=== PATIENT | male | born 1970 | race Two or more races ===

== ENCOUNTER 2022-11-08 19:13 | Emergency (ER) | payer SELFPAY ==
[~2022-11-08] VITALS: Ht 177.8 cm; Wt 109.1 kg
[2022-11-08 19:20] VITALS: BP 124/66
[2022-11-08 19:42] LABS: Basophils # (auto) 0 10 ^3/uL (0-0.2); Eosinophils # (auto) 0.1 10 ^3/uL (0-0.8); Eosinophils % (auto) 2.4 % (0.0-7.0); Neutrophils # (auto) 1.7 10 ^3/uL (1.6-8.6); Neutrophils % (auto) 41.3 % (37.0-80.0); Red Cell Distribution Width 14.4 % (11.8-14.3)
[2022-11-08 19:44] LABS: Basophils % (auto) 0.4 % (0.0-2.0); Hematocrit 41.4 % (41.0-53.0); Hemoglobin 14.8 g/dL (13.5-17.5); Lymphocytes # (auto) 1.9 10 ^3/uL (0.4-5.4); Lymphocytes % (auto) 46.8 % (10.0-50.0); Mean Corpuscular Hemoglobin 34.9 pg (28.0-32.0); Mean Corpuscular Hgb Conc. 35.8 g/dL (32.0-36.0); Mean Corpuscular Volume 97.6 fL (80.0-100.0); Monocytes # (auto) 0.4 10 ^3/uL (0-1.3); Monocytes % (auto) 9.1 % (0.0-12.0); Nucleated Red Blood Cells % 0.2 %; Red Blood Cells 4.24 10^6/uL (4.5-5.90); White Blood Cell 4.1 10^3/uL (4.4-10.8)
[2022-11-08 20:07] LABS: Albumin 3.5 g/dL (3.4-5.0); Calcium 8.4 mg/dL (8.5-10.1); Potassium 3.7 mmol/L (3.5-5.1)
[2022-11-08 20:13] LABS: Bilirubin, Total 0.9 mg/dL (0.2-1.0); Total Protein 7.2 g/dL (6.4-8.2)
[2022-11-08 20:37] LABS: BUN/Creatinine Ratio 16.9 (10.0-20.0)
== END 2022-11-08 23:55 | disposition left against medical advice (07) ==
LOC: ER 19:13
DX: R07.89 Other chest pain (principal); F10.129 Alcohol abuse with intoxication, unspecified; R73.9 Hyperglycemia, unspecified; D72.819 Decreased white blood cell count, unspecified; F17.210 Nicotine dependence, cigarettes, uncomplicated; Z53.29 Procedure and treatment not carried out because of patient's decision for other reasons
CPT/HCPCS: 36415; 71045; 80053; 80320; 84484; 85025; 93005

== ENCOUNTER 2024-11-22 12:11 | Inpatient (IN) | payer MEDICAID, OTHER ==
[~2024-11-22] VITALS: Ht 177.8 cm; Wt 104.7 kg
[2024-11-22] MEDS: SODIUM CHLORIDE 0.9% 1,000 ML IV ONE (12:30)
--- NOTE | 2024-11-22 13:00 | ED.PDOC ---
Musculoskeletal HPI Comments 54 year old male presents to the ED with chief complaint of right foot redness. Patient reports that he has had an ulcer to his right heel for about a week with it appearing like a blister before it popped and the area became red and painful. Patient relays that he decided to boil some water and epsom salt together yesterday, waited for it to cool down, then dunk his foot to soak in the mixture, however, this morning his entire foot became blistered, painful, red, hot to touch, and spread up his leg to the stevens. Patient denies any numbness, weakness, fever, chills, discharge, or bleeding. Chief Complaint: Lower Extremity Time Seen by MD: 12:55 Reviewed Notes: Nurses Notes, Medications, Allergies Allergies: Coded Allergies: NO KNOWN ALLERGIES (Unverified , 11/22/24) Information Source: Patient Mode of Arrival: Ambulatory Location: Right Extremity Location: Foot, Tibia Timing: Weeks Prehospital treatment: None Severity: Moderate Able to Move Extremity: Yes Bear Weight: Fully Pain: Moderate Mechanism: Spontaneous Circumstances: Spontaneous, Preceding Wound Onset of Symptoms: Spontaneous Symptoms: Pain, Erythema, Warmth DVT Risk Factors: NONE Past Medical History PAST MEDICAL HISTORY: OK Surgical History: Denies all surgeries Family History Family History: Unknown Social History Smoker: Cigarettes Alcohol: Heavy Drugs: Denies Drug Use Lives In: Home Constitutional: denies: chills, diaphoresis, fatigue, fever, malaise, sweats, weakness, others EENTM: denies: blurred vision, double vision, ear bleeding, ear discharge, ear drainage, ear pain, ear ringing, eye pain, eye redness, hearing loss, mouth pain, mouth swelling, nasal discharge, nose bleeding, nose congestion, nose pain, photophobia, tearing, throat pain, throat swelling, voice changes, others Respiratory: denies: cough, hemoptysis, orthopnea, SOB at rest, shortness of breath, SOB with excertion, stridor, wheezing, others Cardiovascular: denies: chest pain, dizzy spells, diaphoresis, Dyspnea on exertion, edema, irregular heart beat, left arm pain, lightheadedness, palpitations, PND, syncope, others Gastrointestinal: denies: abdomen distended, abdominal pain, blood streaked bowels, constipated, diarrhea, dysphagia, difficulty swallowing, hematemesis, melena, nausea, poor appetite, poor fluid intake, rectal bleeding, rectal pain, vomiting, others Genitourinary: denies: burning, dysuria, flank pain, frequency, hematuria, incontinence, penile discharge, penile sore, pain, testicle pain, testicle swelling, urgency, others Neurological: denies: dizziness, fainting, headache, left sided numbness, left sided weakness, numbness, paresthesia, pre-existing deficit, right sided numbness, right sided weakness, seizure, speech problems, tingling, tremors, weakness, others Musculoskeletal: denies: back pain, gout, joint pain, joint swelling, muscle pain, muscle stiffness, neck pain, others Integumetry: reports: change in color, others (Blistering, redness to right foot/stevens); denies: bruises, change in hair/nails, dryness, laceration, lesions, lumps, rash, wounds Allergic/Immunocompromised: denies: Difficulty Healing, Frequent Infections, Hives, Itching, others Hematologic/Lymphatic: denies: anemia, blood clots, easy bleeding, easy bruising, swollen glands, others Endocrine: denies: excessive hunger, excessive sweating, excessive thirst, excessive urination, flushing, intolerance to cold, intolerance to heat, unexplained weight gain, unexplained weight loss, others Psychiatric: denies: anxiety, bipolar disorder, depression, hopeless, panic disorder, schizophrenia, sleepless, suicidal, others All Other Systems: Reviewed and Negative Physical Exam General Appearance: No Apparent Distress, Normal HEENT: Normal ENT Inspection, Pharynx Normal, TMs Normal Neck: Full Range of Motion, Non-Tender, Normal, Normal Inspection Respiratory: Chest Non-Tender, Lungs Clear, No Accessory Muscle Use, No Respiratory Distress, Normal Breath Sounds Cardiovascular: No Edema, No JVD, No Murmur, No Gallop, Normal Peripheral Pulses, Regular Rate/Rhythm Breast Exam: Deferred Gastrointestinal: No Organomegaly, Non Tender, No Pulsatile Mass, Normal Bowel Sounds, Soft Genitalia: Deferred Pelvic: Deferred Rectal: Deferred Extremities: No calf tenderness, Normal capillary refill, Normal range of motion, Other (Blistering, erythema, and warmth to touch to the right lower leg from mid stevens to foot.) Musculoskeletal : Apperance: Normal Neurologic: Alert, autism teacher II-XII nml as Tested, No Motor Deficits, Normal Affect, Normal Mood, No Sensory Deficits Cerebellar Function: Normal Reflexes: Normal Skin: Dry, Normal Color, Warm Lymphatic: No Adenopathy Was a procedure done? Was a procedure done?: No Differential Diagnosis EXT Differential Diagnosis: Cellulitis X-Ray, Labs, Meds, VS Vital Signs Date Time Temp Pulse Resp B/P (MAP) Pulse Ox O2 Delivery O2 Flow Rate FiO2 11/22/24 12:37 98.1 74 19 168/74 (105) 98 98.1 11/22/24 12:32 98.9 81 16 177/96 (123) 97 98.9 Lab Test 11/22/24 13:50 11/22/24 13:11 Range/Units Urine Color Yellow Yellow Urine Clarity Clear Clear Urine pH 6.5 5.0-9.0 Urine Specific [place] 1.018 1.001-1.035 Urine Protein Trace H Negative Urine Ketones Negative Negative Urine Blood Negative Negative /uL Urine Nitrite Negative Negative Urine Bilirubin Negative Negative Urine Urobilinogen 2 H Negative mg/dL Urine Leukocyte Esterase Negative Negative /uL Urine RBC 2 0 - 3 /hpf Urine Microscopic WBC 0-3 /HPF Urine Squamous Epithelial Cells None seen <5 /hpf Urine Bacteria None seen None Seen /hpf Urine Glucose Normal Normal mg/dL White Blood Count 6.1 4.4-10.8 10^3/uL Red Blood Count 3.90 L 4.5-5.90 10^6/uL Hemoglobin 13.6 13.5-17.5 g/dL Hematocrit 39.1 L 41.0-53.0 % Mean Corpuscular Volume 100.4 H 80.0-100.0 fL Mean Corpuscular Hemoglobin 35.0 H 28.0-32.0 pg Mean Corpuscular Hemoglobin Concent 34.8 32.0-36.0 g/dL Red Cell Distribution Width 13.0 11.8-14.3 % Platelet Count 238 140-450 10^3/uL Mean Platelet Volume 7.1 6.9-10.8 fL Neutrophils (%) (Auto) 69.8 37.0-80.0 % Lymphocytes (%) (Auto) 19.0 10.0-50.0 % Monocytes (%) (Auto) 8.9 0.0-12.0 % Eosinophils (%) (Auto) 1.7 0.0-7.0 % Basophils (%) (Auto) 0.6 0.0-2.0 % Neutrophils # (Auto) 4.3 1.6-8.6 10 ^3/uL Lymphocytes # (Auto) 1.2 0.4-5.4 10 ^3/uL Monocytes # (Auto) 0.5 0-1.3 10 ^3/uL Eosinophils # (Auto) 0.1 0-0.8 10 ^3/uL Basophils # (Auto) 0 0-0.2 10 ^3/uL Nucleated Red Blood Cells 0.1 % Sodium Level 136 136-145 mmol/L Potassium Level 4.0 3.5-5.1 mmol/L Chloride Level 102 98-107 mmol/L Carbon Dioxide Level 28 20-31 mmol/L Anion Gap 6 5-15 Blood Urea Nitrogen 13 9-23 mg/dL Creatinine 0.80 0.700-1.30 mg/dL Glomerular Filtration Rate Calc 105 >90 mL/min BUN/Creatinine Ratio 16.3 10.0-20.0 Serum Glucose 105 74-106 mg/dL Lactic Acid Level 0.7 0.4-2.0 mmol/L Calcium Level 9.5 8.7-10.4 mg/dL Total Bilirubin 1.6 H 0.2-1.0 mg/dL Aspartate Amino Transferase (AST) 19 13-40 U/L Alanine Aminotransferase (ALT) 18 7-40 U/L Alkaline Phosphatase 102 46-116 U/L Total Protein 7.5 5.7-8.2 g/dL Albumin 4.3 3.2-4.8 g/dL Current Medications Medications (Trade) Dose Ordered Sig/Rei Route Start Time Stop Time Status Last Admin Sodium Chloride 1,000 ml @ 1,000 mls/hr Q1H ONCE IV 11/22/24 12:30 11/22/24 13:29 DC 11/22/24 12:30 Cefepime HCl 50 ml @ 12.5 mls/hr ONCE ONCE IV 11/22/24 12:30 11/22/24 16:29 11/22/24 15:07 Vancomycin HCl 200 ml @ 200 mls/hr ONCE ONCE IV 11/22/24 12:30 11/22/24 13:29 DC 11/22/24 15:12 Rt Tib/Fib XR: FINDINGS/IMPRESSION: : 1. No acute fracture of the right tibia or fibula. No osseous erosions are iden tified to suggest advanced osteomyelitis. 2. Irregular calcification along the medial margin of the medial malleolus which may be due to old ligamentous injury. 3. Small calcifications of the patellar tendon which may be due to chronic patellar tendinosis or old patellar tendon tear. 4. Subcutaneous edema, greater distally. Rt Foot XR: FINDINGS/IMPRESSION: : There is no evidence of acute fracture or dislocation. Diffuse soft-tissue edema and swelling. Chest XR: FINDINGS: Lines and Tubes: None Lungs: Clear Pleura: No effusion. No pneumothorax. Cardiomediastinal contours: Unremarkable Bones: Unremarkable IMPRESSION: No acute disease. Time of 1ST Reevaluation: 13:55 Reevaluation 1ST: Unchanged Patient Education/Counseling: Diagnosis, Treatment Family Education/Counseling: No Family Present Additional Information Previous visits reviewed: 11/08/22 for chest pain The following tests were ordered, and results were reviewed by me: CXR, Rt tib Fib XR, Rt Foot XR, CBC, CMP, UA, Lactic Acid, Blood Culture Additional Information was gathered from interviewing the following independent historians: None I reviewed and agreed with the following test results read by other providers: CXR, Rt tib Fib XR, Rt Foot XR I discussed treatment and results with medical personnel and: patient Comprehensive systems review obtained and negative except for what is stated in the HPI. Departure 1 Departure Time of Disposition: 15:19 (Patient presented with right lower extremity infection. Patient was empirically covered with antibiotics and fluids. With the patient for further workup.) Impression: Primary Impression: Cellulitis of right lower extremity Disposition: ADMITTED INPATIENT Admit to: Med Surg Condition: Guarded Critical Care Note Critical Care Time?: No Stability Stability form required: No Heart Score Heart Score: Heart Score Response (Comments) Value History N/A 0 EKG N/A 0 Age N/A 0 Risk Factors N/A 0 Troponin N/A 0 Total 0 I personally scribed for DORENE MARTIN MD ([email or web address]) on 11/22/24 at 13:00. Electronically submitted by Rajiv Gore ([email or web address]). I personally scribed for DORENE MARTIN MD ([email or web address]) on 11/22/24 at 13:49. Electronically submitted by Rajiv Gore ([email or web address]). I personally scribed for DORENE MARTIN MD ([email or web address]) on 11/22/24 at 13:50. Electronically submitted by Rajiv Gore ([email or web address]). DORENE MARTIN MD November 22, 2024 13:00
--- NOTE | 2024-11-22 13:12 | DVH ---
CLINICAL INDICATION: infection TECHNIQUE: AP and lateral views of the right lower leg were performed. XY R TIB FIB XRAY Comparison: None FINDINGS/IMPRESSION: : 1. No acute fracture of the right tibia or fibula. No osseous erosions are identified to suggest adva nced osteomyelitis. 2. Irregular calcification along the medial margin of the medial malleolus which may be due to old li gamentous injury. 3. Small calcifications of the patellar tendon which may be due to chronic patellar tendinosis or old patellar tendon tear. 4. Subcutaneous edema, greater distally.
--- NOTE | 2024-11-22 13:19 | DVH ---
CHEST RADIOGRAPH Indication: Sepsis Technique: Single frontal view of the chest was obtained COMPARISON: None FINDINGS: Lines and Tubes: None Lungs: Clear Pleura: No effusion. No pneumothorax. Cardiomediastinal contours: Unremarkable Bones: Unremarkable IMPRESSION: No acute disease.
--- NOTE | 2024-11-22 13:20 | DVH ---
CLINICAL INDICATION: infection TECHNIQUE: XY R FOOT 3 VIEW XRAY Comparison: None FINDINGS/IMPRESSION: : There is no evidence of acute fracture or dislocation. Diffuse soft-tissue edema and swelling.
[2024-11-22 13:27] LABS: Basophils # (auto) 0 10 ^3/uL (0-0.2); Basophils % (auto) 0.6 % (0.0-2.0); Eosinophils # (auto) 0.1 10 ^3/uL (0-0.8); Eosinophils % (auto) 1.7 % (0.0-7.0); Hematocrit 39.1 % (41.0-53.0); Hemoglobin 13.6 g/dL (13.5-17.5); Lymphocytes # (auto) 1.2 10 ^3/uL (0.4-5.4); Mean Corpuscular Hgb Conc. 34.8 g/dL (32.0-36.0); Mean Corpuscular Volume 100.4 fL (80.0-100.0); Monocytes # (auto) 0.5 10 ^3/uL (0-1.3); Monocytes % (auto) 8.9 % (0.0-12.0); Neutrophils # (auto) 4.3 10 ^3/uL (1.6-8.6); Neutrophils % (auto) 69.8 % (37.0-80.0); Nucleated Red Blood Cells % 0.1 %; Platelet Count (auto) 238 10^3/uL (140-450); White Blood Cell 6.1 10^3/uL (4.4-10.8)
[2024-11-22 13:45] LABS: Alanine Aminotransferase 18 U/L (7-40); Albumin 4.3 g/dL (3.2-4.8); Alkaline Phosphatase 102 U/L (46-116); Anion Gap 6 (5-15); Aspartate Aminotransferase 19 U/L (13-40); BUN/Creatinine Ratio 16.3 (10.0-20.0); Blood Urea Nitrogen 13 mg/dL (9-23); Calcium 9.5 mg/dL (8.7-10.4); Carbon Dioxide 28 mmol/L (20-31); Chloride 102 mmol/L (98-107); Glucose 105 mg/dL (74-106); Sodium 136 mmol/L (136-145); Total Protein 7.5 g/dL (5.7-8.2)
[2024-11-22 13:46] LABS: Bilirubin, Total 1.6 mg/dL (0.2-1.0)
[2024-11-22 14:04] LABS: Urine Bacteria None Seen /hpf (None Seen)
[2024-11-22 14:12] LABS: Urine Blood Negative /uL (Negative); Urine Clarity Clear (Clear); Urine Color Yellow (Yellow); Urine Protein, UAD TRACE (Negative); Urine Specific Gravity 1.018 (1.001-1.035); Urine Squamous Epithelial Cell None Seen /hpf (<5); Urine Urobilinogen 2 mg/dL (Negative); Urine pH 6.5 (5.0-9.0)
[2024-11-22] MEDS: CEFEPIME 2GM/50ML NS 50 ML IV ONE (15:07)
[2024-11-22] MEDS: VANCOMYCIN 1GM/200ML PM 200 ML IV ONE (15:12)
[2024-11-22] MEDS ORDERED: VANCOMYCIN PER PHARMACY 0 MG IV SCH (15:45)
[2024-11-22] MEDS ORDERED: DOCUSATE SOD 100 MG CAP PO PRN (15:45)
[2024-11-22] MEDS ORDERED: ACETAMINOPHEN 325 MG TAB PO PRN (15:45)
--- NOTE | 2024-11-22 16:34 | DVHHP2 ---
History of Present Illness Reason for Visit: Cellulitis of right lower extremity History of Present Illness The patient is a 54-year-old male with past medical history of MS and hypertension who presented to [facility] [place] ED with complaint of bilateral foot blisters right greater than left. Patient reports experiencing foot ulcers for the past one week, associated popped blisters, became red, and painful wounds, progressively get worse that prompted this visit. Patient was seen and evaluated in the ED, laboratory data shows WBC 6.1, platelets 238, sodium 136, potassium 4.0, BUN 13, creatinine 0.80, glucose 105, lactic acid 0.7, total bilirubin 1.6, blood pressure 177/96 trending down to 168/74, heart rate 74, temperature 98.1 F, O2 saturation 98% on room air. Foot x-ray revealing diffuse soft tissue edema and swelling, x-ray of the tibia and fibula revealing subcutaneous edema, greater distally. Patient was started on IV antibiotic regimen vancomycin, please see medication orders section in the computer. On my assessment, patient denied chest pain, no headache, no diz ziness, no diaphoresis, no shortness of breath, no nausea, no vomiting, no fever, no chills. Patient was admitted for further evaluation and medical management. Past Medical History MS, HTN Past Surgical History Right eye surgery with right eye prosthesis Family History Reviewed, noncontributory to the management of this case. Past Social History The patient lives at home, smokes cigarettes, drinks alcohol heavily, denies illicit drugs abuse. Review of Systems Constitutional: No: Fever, Chills, Sweats, Weakness, Malaise, Other Eyes: Other (Right eye prosthesis); No: Pain, Vision change, Conjunctivae inflammation, Eyelid inflammation, Redness ENT: No: Ear pain, Ear discharge, Nose pain, Nose discharge, Nose congestion, Mouth pain, Mouth swelling, Throat pain, Throat swelling, Other Respiratory: No: Cough, Dry, Shortness of breath, SOB with excertion, Wheezing, Hemoptysis, Pleuritic Pain, Sputum, Wheezing, Other Cardiovascular: No: Chest Pain, Palpitations, Orthopnea, Paroxysmal Noc. Dyspnea, Edema, Lt Headedness, Other Gastrointestinal: No: Nausea, Vomiting, Abdominal Pain, Diarrhea, Constipation, Melena, Hematochezia, Other Genitourinary: No Dysuria, No Frequency, No Incontinence, No Hematuria, No Retention, No Other Musculoskeletal: other (Lower extremity swelling), foot pain; No: neck pain, shoulder pain, arm pain, back pain, hand pain, leg pain Skin: Lesions, Other (Blisters); No: Rash, Jaundice, Bruising Neurological: No: Weakness, Numbness, Incoordination, Change in speech, Confusion, Seizures, Other Allergies: Coded Allergies: NO KNOWN ALLERGIES (Unverified , 11/22/24) Medications Current Medications Medications Dose Ordered Sig/Rei Route Start Time Stop Time Status Last Admin Dose Admin Hydralazine HCl 10 mg Q6HP PRN IV 11/22/24 15:45 Vancomycin HCl 0 ml @ 0 mls/hr UD IV 11/22/24 15:45 Cefepime HCl 50 ml @ 12.5 mls/hr Q8HR IV 11/22/24 22:00 Lisinopril 10 mg DAILY PO 11/23/24 10:00 Sodium Chloride 1,000 ml @ 60 mls/hr [id number] IV 11/22/24 15:45 Acetaminophen/ Hydrocodone Bitart 1 tab Q4HP PRN PO 11/22/24 15:45 Ondansetron HCl 4 mg Q4HP PRN IV 11/22/24 15:45 Docusate Sodium 100 mg BIDPRN PRN PO 11/22/24 15:45 Enoxaparin Sodium 40 mg DAILY SC 11/23/24 10:00 Acetaminophen 650 mg Q6HP PRN PO 11/22/24 15:45 Morphine Sulfate 2 mg Q4HPRN PRN IV 11/22/24 15:45 Vancomycin HCl 200 ml @ 200 mls/hr Q8H IV 11/22/24 21:00 Exam Vital Signs Vital Signs Date Time Temp Pulse Resp B/P (MAP) Pulse Ox O2 Delivery O2 Flow Rate FiO2 11/22/24 12:37 98.1 74 19 168/74 (105) 98 98.1 General Appearance: Alert, Oriented X3, Cooperative, No acute distress HEENT: Atraumatic, PERRLA (Left eye), EOMI, Mucous membr. moist/pink Respiratory: Clear to auscultation, Normal air movement Cardiovascular: Regular rate, Normal S1, Normal S2, No murmurs Abdominal: Normal bowel sounds, Soft, No tenderness, No hepatospenomegaly, No masses Extremities: No clubbing, No cyanosis, Normal pulses, Other (Lower extremity edema with blisters) Skin: No rashes Neuro: Normal gait, Normal speech, Strength at 5/5 X4 ext, Normal tone, Sensation intact, Cranial nerves 3-12 NL, Reflexes 2+ Psych/Mental Status: Mental status NL, Mood NL Labs/Xrays Labs Test 11/22/24 13:50 11/22/24 13:11 Range/Units Urine Color Yellow Yellow Urine Clarity Clear Clear Urine pH 6.5 5.0-9.0 Urine Specific [place] 1.018 1.001-1.035 Urine Protein Trace H Negative Urine Ketones Negative Negative Urine Blood Negative Negative /uL Urine Nitrite Negative Negative Urine Bilirubin Negative Negative Urine Urobilinogen 2 H Negative mg/dL Urine Leukocyte Esterase Negative Negative /uL Urine RBC 2 0 - 3 /hpf Urine Microscopic WBC 0-3 /HPF Urine Squamous Epithelial Cells None seen <5 /hpf Urine Bacteria None seen None Seen /hpf Urine Glucose Normal Normal mg/dL White Blood Count 6.1 4.4-10.8 10^3/uL Red Blood Count 3.90 L 4.5-5.90 10^6/uL Hemoglobin 13.6 13.5-17.5 g/dL Hematocrit 39.1 L 41.0-53.0 % Mean Corpuscular Volume 100.4 H 80.0-100.0 fL Mean Corpuscular Hemoglobin 35.0 H 28.0-32.0 pg Mean Corpuscular Hemoglobin Concent 34.8 32.0-36.0 g/dL Red Cell Distribution Width 13.0 11.8-14.3 % Platelet Count 238 140-450 10^3/uL Mean Platelet Volume 7.1 6.9-10.8 fL Neutrophils (%) (Auto) 69.8 37.0-80.0 % Lymphocytes (%) (Auto) 19.0 10.0-50.0 % Monocytes (%) (Auto) 8.9 0.0-12.0 % Eosinophils (%) (Auto) 1.7 0.0-7.0 % Basophils (%) (Auto) 0.6 0.0-2.0 % Neutrophils # (Auto) 4.3 1.6-8.6 10 ^3/uL Lymphocytes # (Auto) 1.2 0.4-5.4 10 ^3/uL Monocytes # (Auto) 0.5 0-1.3 10 ^3/uL Eosinophils # (Auto) 0.1 0-0.8 10 ^3/uL Basophils # (Auto) 0 0-0.2 10 ^3/uL Nucleated Red Blood Cells 0.1 % Sodium Level 136 136-145 mmol/L Potassium Level 4.0 3.5-5.1 mmol/L Chloride Level 102 98-107 mmol/L Carbon Dioxide Level 28 20-31 mmol/L Anion Gap 6 5-15 Blood Urea Nitrogen 13 9-23 mg/dL Creatinine 0.80 0.700-1.30 mg/dL Glomerular Filtration Rate Calc 105 >90 mL/min BUN/Creatinine Ratio 16.3 10.0-20.0 Serum Glucose 105 74-106 mg/dL Lactic Acid Level 0.7 0.4-2.0 mmol/L Calcium Level 9.5 8.7-10.4 mg/dL Total Bilirubin 1.6 H 0.2-1.0 mg/dL Aspartate Amino Transferase (AST) 19 13-40 U/L Alanine Aminotransferase (ALT) 18 7-40 U/L Alkaline Phosphatase 102 46-116 U/L Total Protein 7.5 5.7-8.2 g/dL Albumin 4.3 3.2-4.8 g/dL PATIENT: FLORINA NICKERSON ACCT: [id number] UNIT: [id number] : 1970 LOC: ER ROOM / BED: / AGE / SEX: 54 / M ADM STATUS: REG ER SERVICE 1230 ORDERING PHYSICIAN: DORENE MARTIN MD PROCEDURE(s): RTBFB - R TIB FIB XRAY REASON: infection ORDER NUMBER(s): [id number], ACCESSION NUMBER(s): [id number] CLINICAL INDICATION: infection TECHNIQUE: AP and lateral views of the right lower leg were performed. XY R TIB FIB XRAY Comparison: None FINDINGS/IMPRESSION: 1. No acute fracture of the right tibia or fibula. No osseous erosions are identified to suggest advanced osteomyelitis. 2. Irregular calcification along the medial margin of the medial malleolus which may be due to old ligamentous injury. 3. Small calcifications of the patellar tendon which may be due to chronic patellar tendinosis or old patellar tendon tear. 4. Subcutaneous edema, greater distally. ORDERING PHYSICIAN: DORENE MARTIN MD PROCEDURE(s): RFOOT - R FOOT 3 VIEW XRAY REASON: infection ORDER NUMBER(s): [id number], ACCESSION NUMBER(s): [id number] CLINICAL INDICATION: infection TECHNIQUE: XY R FOOT 3 VIEW XRAY Comparison: None FINDINGS/IMPRESSION: There is no evidence of acute fracture or dislocation. Diffuse soft-tissue edema and swelling. ORDERING PHYSICIAN: DORENE MARTIN MD PROCEDURE(s): CXRP - CHEST PORTABLE REASON: Sepsis ORDER NUMBER(s): [id number], ACCESSION NUMBER(s): [id number] CHEST RADIOGRAPH Indication: Sepsis Technique: Single frontal view of the chest was obtained COMPARISON: None FINDINGS: Lines and Tubes: None Lungs: Clear Pleura: No effusion. No pneumothorax. Cardiomediastinal contours: Unremarkable Bones: Unremarkable IMPRESSION: No acute disease. Assessment/Plan Assessment/Plan Blisters of foot, right Blisters of foot, left Cellulitis of right lower extremity Plan 1. Admit to med surge unit 2. Breathing treatment 3. Pain control management 4. IV antibiotic management 5. Management of fluids and electrolytes 6. Consultation for podiatry/wound care 7. Diagnostic test foot x-ray 8. DVT prophylaxis on Lovenox 9. Repeat labs CBC, CMP in a.m. 10. Home medication reviewed and reconciled 11. Continue with current medical management 12. Treatment plan discussed with patient and RN. Patient verbalized understanding. Plan discussed with: Patient, Other (RN) My Orders Orders - VICKY FOWLER DNP Procedure Category Date Status Time *Podiatry Consult CONS 11/22/24 Transmitted Musson(Dvmg) 15:45 * Wound Consult CONS 11/22/24 Transmitted Hydralazine Injection PHA 11/22/24 In Process (Apresoline Inject 15:45 Vancomycin Per PHA 11/22/24 In Process Pharmacy 15:45 Cefepime 1gm/ 50ml PHA 11/22/24 In Process (Maxipime 1gm/50ml) 22:00 Lisinopril Tablet PHA 11/23/24 In Process (Zestril Tablet) 10:00 Allergies EDDIE 11/22/24 In Process 15:45 Code Status CODE 11/22/24 Transmitted 15:45 Sodium Chloride 0.9% PHA 11/22/24 In Process 15:45 Oxygen Per Hour RT 11/22/24 Transmitted 15:45 Hydrocodone-Acet PHA 11/22/24 In Process 5/325mg Tab ([place] 15:45 Ondansetron Hcl PHA 11/22/24 In Process (Zofran) 15:45 Docusate Sodium PHA 11/22/24 In Process Capsule (Colace 15:45 Enoxaparin Sodium PHA 11/23/24 In Process (Lovenox) 10:00 Complete Blood Count LAB 11/23/24 Verified 04:00 Comprehensive LAB 11/23/24 Verified Metabolic Panel 04:00 Cardiac DIET 11/22/24 Transmitted Diet-2gna,Lofat,Lochol Dinner Condition: Serious EDDIE 11/22/24 In Process 15:45 Acetaminophen Tablet PHA 11/22/24 In Process (Tylenol Tablet) 15:45 Bedrest With Bathroom EDDIE 11/22/24 In Process Privileg 15:45 Morphine Sulfate PHA 11/22/24 In Process Injection 15:45 Sequential EDDIE 11/22/24 In Process Compression Device Vancomycin 1gm/200ml PHA 11/22/24 In Process Pm 21:00 Vancomycin,Trough LAB 11/23/24 Verified 12:00 Vancomycin Per EDDIE 11/23/24 In Process Pharmacy Protoc 13:00 Admit ADMIT 11/22/24 Verified 16:32 Nitroglycerin PHA 11/22/24 Verified Sublingual (Ntrostat 16:45 Morphine Sulfate PHA 11/22/24 Verified Injection 16:45 Notify Of Changes EDDIE 11/22/24 Verified From Base 16:32 Manager Implementation For EDDIE 11/22/24 Verified 24 Hours 16:32 Emergency Dysrhythmia EDDIE 11/22/24 Verified Protocol 16:32 Oxygen By Nasal RT 11/22/24 Verified Cannula 16:32 Problem List: (1) Blister of foot, right (2) Blister of foot, left (3) Cellulitis of right lower extremity Date of Service: November 22, 2024 Billing Provider: VICKY FOWLER DNP Common Visit Codes: [id number] INP/OBS CARE (HIGH) VICKY FOWLER DNP November 22, 2024 16:34
[2024-11-22] MEDS ORDERED: MORPHINE SULFATE INJ 2 MG/ml SYRG IV PRN (16:45)
[2024-11-22] MEDS ORDERED: NITROGLYCERIN 0.4 MG SL TAB SL PRN (16:45)
[2024-11-22 17:54] VITALS: PULSE 81; RESP 16; O2SAT 97
[2024-11-22] MEDS: MORPHINE SULFATE INJ 2 MG/ml SYRG IV PRN (19:14)
[2024-11-22] MEDS: ONDANSETRON HCL 4 MG/2 ML VIAL IV PRN (19:14)
[2024-11-22] MEDS: LISINOPRIL 5 MG TAB PO ONE (20:32)
[2024-11-22] MEDS: VANCOMYCIN 1GM/200ML PM 200 ML IV SCH (22:53)
[2024-11-23] VITALS (8 sets, daily range): BP systolic 100–184; BP diastolic 57–95; PULSE 76–87; RESP 17–18; TEMP 97.7–98.3; O2SAT 97–99
[2024-11-23] MEDS: SODIUM CHLORIDE 0.9% 1,000 ML IV SCH (00:57)
[2024-11-23] MEDS: CEFEPIME 1GM/ 50ML 50 ML IV SCH (00:57)
[2024-11-23] MEDS: hydrALAZINE HCL 20 MG/ML VL IV PRN (05:16)
[2024-11-23 06:55] LABS: Basophils # (auto) 0.1 10 ^3/uL (0-0.2); Basophils % (auto) 0.9 % (0.0-2.0); Eosinophils # (auto) 0.1 10 ^3/uL (0-0.8); Eosinophils % (auto) 2.3 % (0.0-7.0); Hematocrit 38.2 % (41.0-53.0); Hemoglobin 13.4 g/dL (13.5-17.5); Lymphocytes % (auto) 16.6 % (10.0-50.0); Mean Corpuscular Hemoglobin 35.5 pg (28.0-32.0); Mean Corpuscular Hgb Conc. 35.2 g/dL (32.0-36.0); Mean Corpuscular Volume 100.8 fL (80.0-100.0); Monocytes # (auto) 0.6 10 ^3/uL (0-1.3); Monocytes % (auto) 9.6 % (0.0-12.0); Neutrophils # (auto) 4.3 10 ^3/uL (1.6-8.6); Neutrophils % (auto) 70.6 % (37.0-80.0); Platelet Count (auto) 222 10^3/uL (140-450); Red Blood Cells 3.79 10^6/uL (4.5-5.90); Red Cell Distribution Width 13.1 % (11.8-14.3); White Blood Cell 6.2 10^3/uL (4.4-10.8)
[2024-11-23 07:22] LABS: Alanine Aminotransferase 12 U/L (7-40); Alkaline Phosphatase 87 U/L (46-116)
[2024-11-23 07:23] LABS: Albumin 3.5 g/dL (3.2-4.8); Anion Gap 7 (5-15); BUN/Creatinine Ratio 19.5 (10.0-20.0); Blood Urea Nitrogen 15 mg/dL (9-23); Carbon Dioxide 25 mmol/L (20-31); Chloride 103 mmol/L (98-107); Total Protein 6.2 g/dL (5.7-8.2)
[2024-11-23 07:24] LABS: Bilirubin, Total 0.9 mg/dL (0.2-1.0)
[2024-11-23 07:25] LABS: Aspartate Aminotransferase 13 U/L (13-40); Calcium 8.3 mg/dL (8.7-10.4); Glucose 208 mg/dL (74-106); Sodium 135 mmol/L (136-145)
[2024-11-23] MEDS: ENOXAPARIN SOD 40 MG/0.4 ML SYRINGE SC SCH (09:41)
[2024-11-23] MEDS: LISINOPRIL 5 MG TAB PO SCH (09:42)
[2024-11-23] MEDS: LIDOCAINE 1% HCL (LOCAL ANESTH.) INJ 20ML MDV ONE (11:38)
--- NOTE | 2024-11-23 12:29 | DVHINCON2 ---
Date Seen: November 23, 2024 Reason for Consultation Right foot wound History of Present Illness The patient is a 54-year-old male with past medical history of MA and hypertension who presented to [facility] ED with complaint of bilateral foot blisters right greater than left. Patient reports experiencing foot ulcers for the past one week, associated popped blisters, became red, and painful wounds, progressively get worse that prompted this visit. Patient was seen and evaluated in the ED, laboratory data shows WBC 6.1, platelets 238, sodium 136, potassium 4.0, BUN 13, creatinine 0.80, glucose 105, lactic acid 0.7, total bilirubin 1.6, blood pressure 177/96 trending down to 168/74, heart rate 74, temperature 98.1 F, O2 saturation 98% on room air. Foot x-ray revealing diffuse soft tissue edema and swelling, x-ray of the tibia and fibula revealing subcutaneous edema, greater distally. Patient was started on IV antibiotic regimen vancomycin, please see medication orders section in the computer. On my assessment, patient denied chest pain, no headache, no dizzin ess, no diaphoresis, no shortness of breath, no nausea, no vomiting, no fever, no chills. Patient was admitted for further evaluation and medical management. Past Medical History See H&P Past Surgical History See H&P Family History: Patient reports no known family medical history. Allergies: Coded Allergies: NO KNOWN ALLERGIES (Unverified , 11/22/24) Home Meds No Active Prescriptions or Reported Meds Current Medications Current Medications Medications (Trade) Dose Ordered Sig/Rei Route PRN Reason Start Time Stop Time Status Last Admin Hydralazine HCl (Apresoline Injection) 10 mg Q6HP PRN IV SBP>150 11/22/24 15:45 11/23/24 10:05 DC 11/23/24 05:16 Vancomycin HCl 0 ml @ 0 mls/hr UD IV 11/22/24 15:45 Cefepime HCl 50 ml @ 12.5 mls/hr Q8HR IV 11/22/24 22:00 11/23/24 06:24 Lisinopril (Zestril Tablet) 10 mg DAILY PO 11/23/24 10:00 11/23/24 09:42 Sodium Chloride 1,000 ml @ 60 mls/hr [id number] IV 11/22/24 15:45 11/23/24 00:57 Acetaminophen/ Hydrocodone Bitart ([place] 5/325MG Tab) 1 tab Q4HP PRN PO MODERATE PAIN (4-6 PAIN SCALE) 11/22/24 15:45 Ondansetron HCl (Zofran) 4 mg Q4HP PRN IV NAUSEA / VOMITING 11/22/24 15:45 11/22/24 19:14 Docusate Sodium (Colace Capsule) 100 mg BIDPRN PRN PO FOR CONSTIPATION 11/22/24 15:45 11/23/24 08:19 DC Enoxaparin Sodium (Lovenox) 40 mg DAILY SC 11/23/24 10:00 11/23/24 09:41 Acetaminophen (Tylenol Tablet) 650 mg Q6HP PRN PO PAIN SCALE 1-3 OR TEMP>100.4 11/22/24 15:45 Morphine Sulfate 2 mg Q4HPRN PRN IV SEVERE PAIN (7-10 PAIN SCALE) 11/22/24 15:45 11/23/24 00:58 Vancomycin HCl 200 ml @ 200 mls/hr Q8H IV 11/22/24 21:00 11/23/24 05:08 Nitroglycerin (Ntrostat Sublingual) 0.4 mg Q5MINP PRN SL FOR CHEST PAIN 11/22/24 16:45 11/23/24 10:05 DC Morphine Sulfate 2 mg Q30M PRN IV FOR CHEST PAIN 11/22/24 16:45 11/23/24 10:05 DC Vital Signs Vital Signs Date Time Temp Pulse Resp B/P (MAP) Pulse Ox O2 Delivery O2 Flow Rate FiO2 11/23/24 09:42 113/63 11/23/24 09:00 97.7 84 18 98 97.7 11/23/24 00:39 Room Air* 0 21 Physical Exam Dermatological: Skin is dry with mild erythema and some maceration around the wound site No gross deformities noted Mild non-pitting edema present bilaterally Multiple superficial blisters on the right lower extremity with serous drainage Heel wound a proximally 3 cm x 3 cm by 2 cm with eschar and malodor Vascular: Dorsalis pedis and posterior tibial pulses are 1+ bilaterally Capillary refill is under 2 seconds Skin temperature is warm bilaterally Neurologic: Protective sensation is absent on the plantar forefoot bilaterally Monofilament testing reveals decreased sensation in multiple plantar sites Musculoskeletal: Range of motion at the ankle and MTP joints is within normal limits. Strength is 5/5 in all tested muscle groups. Gait is antalgic due to offloading of the affected limb. Labs/Diagnostic Data Labs Test 11/23/24 06:06 11/22/24 13:50 11/22/24 13:11 Range/Units White Blood Count 6.2 4.4-10.8 10^3/uL Red Blood Count 3.79 L 4.5-5.90 10^6/uL Hemoglobin 13.4 L 13.5-17.5 g/dL Hematocrit 38.2 L 41.0-53.0 % Mean Corpuscular Volume 100.8 H 80.0-100.0 fL Mean Corpuscular Hemoglobin 35.5 H 28.0-32.0 pg Mean Corpuscular Hemoglobin Concent 35.2 32.0-36.0 g/dL Red Cell Distribution Width 13.1 11.8-14.3 % Platelet Count 222 140-450 10^3/uL Mean Platelet Volume 7.7 6.9-10.8 fL Neutrophils (%) (Auto) 70.6 37.0-80.0 % Lymphocytes (%) (Auto) 16.6 10.0-50.0 % Monocytes (%) (Auto) 9.6 0.0-12.0 % Eosinophils (%) (Auto) 2.3 0.0-7.0 % Basophils (%) (Auto) 0.9 0.0-2.0 % Neutrophils # (Auto) 4.3 1.6-8.6 10 ^3/uL Lymphocytes # (Auto) 1.0 0.4-5.4 10 ^3/uL Monocytes # (Auto) 0.6 0-1.3 10 ^3/uL Eosinophils # (Auto) 0.1 0-0.8 10 ^3/uL Basophils # (Auto) 0.1 0-0.2 10 ^3/uL Nucleated Red Blood Cells 0.0 % Sodium Level 135 L 136-145 mmol/L Potassium Level 4.0 3.5-5.1 mmol/L Chloride Level 103 98-107 mmol/L Carbon Dioxide Level 25 20-31 mmol/L Anion Gap 7 5-15 Blood Urea Nitrogen 15 9-23 mg/dL Creatinine 0.77 0.700-1.30 mg/dL Glomerular Filtration Rate Calc 106 >90 mL/min BUN/Creatinine Ratio 19.5 10.0-20.0 Serum Glucose 208 #H 74-106 mg/dL Hemoglobin A1c 5.6 <5.7 % A1C Calcium Level 8.3 L 8.7-10.4 mg/dL Total Bilirubin 0.9 0.2-1.0 mg/dL Aspartate Amino Transferase (AST) 13 13-40 U/L Alanine Aminotransferase (ALT) 12 7-40 U/L Alkaline Phosphatase 87 46-116 U/L Total Protein 6.2 5.7-8.2 g/dL Albumin 3.5 3.2-4.8 g/dL Urine Color Yellow Yellow Urine Clarity Clear Clear Urine pH 6.5 5.0-9.0 Urine Specific [place] 1.018 1.001-1.035 Urine Protein Trace H Negative Urine Ketones Negative Negative Urine Blood Negative Negative /uL Urine Nitrite Negative Negative Urine Bilirubin Negative Negative Urine Urobilinogen 2 H Negative mg/dL Urine Leukocyte Esterase Negative Negative /uL Urine RBC 2 0 - 3 /hpf Urine Microscopic WBC 0-3 /HPF Urine Squamous Epithelial Cells None seen <5 /hpf Urine Bacteria None seen None Seen /hpf Urine Glucose Normal Normal mg/dL Lactic Acid Level 0.7 0.4-2.0 mmol/L Problems(with codes): (1) Alcohol intoxication (2) Alcohol abuse (3) Hyperglycemia (4) Leukopenia (5) Chest pain (6) Eloped from emergency department (7) Cellulitis of right lower extremity (8) Blister of foot, left (9) Blister of foot, right Plan/Recommendation ASSESSMENT: Patient is a 54 year old seen on the floor for a worsening ulcer PLAN: - The patients chart was reviewed, clinical findings were discussed with the patient, the etiologies of the conditions were discussed in detail, and a treatment plan was agreed to at this time, with both oral and written instructions provided. - reviewed advanced imaging - discussed plan is to perform an incision and drainage - patient 8 this morning so will do under local - take him to the OR today - we will get cultures in the OR - can weightbear as tolerated in postoperative shoe All questions were answered and concerns addressed to the patient's satisfaction. The patient was given the phone number to the clinic and was told how to make contact with the clinic should any concerns or questions arise. Patient understands that if any questions or concerns arise prior to the next appointment, we should be contacted immediately. FOLLOW-UP: Continue to follow while inpatient Plan discussed with: Patient Date of Service: November 23, 2024 Billing Provider: RADHA MANNING DPM Common Visit Codes: CONSULT ONLY Consultation Codes: [id number] CONSULT <80MIN RADHA MANNING DPM November 23, 2024 12:29
--- NOTE | 2024-11-23 12:34 | DVHOP2 ---
Operative Report - 2 Report Details Date: 11/23/24 Preop Diagnosis: 1. Right heel abscess 2. Right heel osteomyelitis 3. Right foot and ankle cellulitis 4. Right foot and ankle multiple blisters Postop Diagnosis: Same as preop Surgeon: Radha Manning MD Anesthesiologist: None Anesthesia: Local Consent: The patient was informed of the risks and benefits of the procedure. These include but are not limited to complications of anesthesia, postoperative infection, incomplete relief of symptoms, recurrence of symptoms, damage to blood vessels, nerves and tendons, deep venous thrombosis, pulmonary embolism and possible need for repeat surgery in the future. Complications: None Estimated Blood Loss: Minimal Fluids: None Findings: Significant necrosis of the heel probing to bone Indications for Surgery: Worsening right leg wound with multiple blisters Name of Procedure Performed 1. Right heel I&D to bone (26825) 2. Right leg I&D multiple abscess (70843) Procedure Details Procedure Details: PRE-PROCEDURE INFORMATION: In the pre-op holding area, the extremity to be operated on was clearly marked and the patient verified correct laterality of the marking. The patient was transferred to the OR table and placed in a supine position. A timeout was performed in which identification of the correct patien t, procedure, location, and materials was done. The _ foot and leg were prepped and draped in normal sterile fashion. The foot and leg were exsanguinated and the _ tourniquet was inflated to 250 mmHg. DESCRIPTION OF PROCEDURE: Attention was directed to the right heel where area of fluctuance was noted. An incision was made over this area and was deepened through blunt dissection. The incision was deepened to the level of abscess and bone. Care was taken to the dissection to avoid any neurovascular and tendinous structures. The incision was deepened to the bone, and the abscess appeared to be purulent fluid consistent with pus. The cortices of the bone was then removed with rongeur an all necrotic tissue. After the abscess was drained, the area was irrigated with 3 L normal saline using cysto tubing. Deep cultures were then obtained from the wound. The area was then inspected and any areas of tracking, especially along the tendons were also drained. The wound was packed with Betadine-soaked gauze and we will need to be closed at a later date or have wound VAC. Attention was directed to the right leg where area of fluctuance was noted and multiple areas of fluctuance. An incision was made over this area and was deepened through blunt dissection. The incision was deepened to the level of abscess and bone. Care was taken to the dissection to avoid any neurovascular and tendinous structures. The incision was to the abscess appeared to be purulent fluid consistent with pus. After the abscess was drained, the area was irrigated with 3 L normal saline using cysto tubing. Deep cultures were then obtained from the wound. The area was then inspected and any areas of tracking, especially along the tendons were also drained. The wound was packed with Betadine-soaked gauze and we will need to be closed at a later date. POSTOPERATIVE INFORMATION: The patient tolerated the above noted procedure and anesthesia well and was transferred to the PACU with vital signs stable, and vascular status intact with capillary refill intact to all digits. Deep cultures were taken. Patient will return to the floor continue IV antibiotics. Recommend that we get an MRI to rule out and see the extent of osteomyelitis in the heel. Condition Good Disposition Still a Patient RADHA MANNING DPM November 23, 2024 12:34
--- NOTE | 2024-11-23 12:51 | DVH ---
INDICATION: osteomyelitis COMPARISON: None TECHNIQUE: CT of the right lower extremity was performed without contrast. Volume transverse images w ere obtained and reconstructed in multiple planes using bone and soft tissue algorithms. Radiation Dose Information: CT Dose: CTDI volume is 7.75 mGy. Dose-length product is 481.23 mGy*cm FINDINGS: The alignment is normal. The joint spaces are normal. There is no fracture, dislocation or aggressive osseous lesion. There is no joint effusion. Diffuse subcutaneous soft-tissue edema and swelling. Diffuse patchy areas of skin thickening and swe lling. Suggestion of soft-tissue ulceration at the inferior posterior foot at the level of the calcan eus. IMPRESSION: Probable cellulitis. No CT findings to suggest acute osteomyelitis.
[2024-11-23] MEDS: NIFEdipine ER 30 MG TAB PO ONE (14:24)
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
[2024-11-23] MEDS: HYDROcodone-ACET 5/325MG TAB PO PRN (17:07)
[2024-11-23] MEDS: LOSARTAN POTASSIUM 50 MG TAB PO ONE (18:34)
[2024-11-23] MEDS: FAMOTIDINE 20 MG TAB PO SCH (21:01)
[2024-11-24] VITALS (7 sets, daily range): BP systolic 89–132; BP diastolic 49–76; PULSE 75–86; RESP 15–20; TEMP 97.9–99.2; O2SAT 97–100
[2024-11-24 05:56] LABS: Basophils # (auto) 0 10 ^3/uL (0-0.2); Eosinophils # (auto) 0.1 10 ^3/uL (0-0.8); Lymphocytes # (auto) 0.9 10 ^3/uL (0.4-5.4); Red Cell Distribution Width 12.9 % (11.8-14.3); White Blood Cell 7.4 10^3/uL (4.4-10.8)
[2024-11-24 05:59] LABS: Basophils % (auto) 0.6 % (0.0-2.0); Hematocrit 36.1 % (41.0-53.0); Hemoglobin 12.8 g/dL (13.5-17.5); Lymphocytes % (auto) 11.8 % (10.0-50.0); Mean Corpuscular Hemoglobin 35.9 pg (28.0-32.0); Mean Corpuscular Hgb Conc. 35.5 g/dL (32.0-36.0); Mean Corpuscular Volume 100.9 fL (80.0-100.0); Monocytes # (auto) 0.9 10 ^3/uL (0-1.3); Monocytes % (auto) 11.6 % (0.0-12.0); Neutrophils # (auto) 5.6 10 ^3/uL (1.6-8.6); Nucleated Red Blood Cells % 0.2 %; Platelet Count (auto) 216 10^3/uL (140-450); Red Blood Cells 3.58 10^6/uL (4.5-5.90)
[2024-11-24 06:03] LABS: Anion Gap 6 (5-15); Carbon Dioxide 25 mmol/L (20-31); Chloride 99 mmol/L (98-107); Potassium 4.2 mmol/L (3.5-5.1)
[2024-11-24 06:09] LABS: BUN/Creatinine Ratio 17.5 (10.0-20.0); Blood Urea Nitrogen 14 mg/dL (9-23)
[2024-11-24 06:12] LABS: Folate (Folic Acid) 11.53 ng/mL (>5.38)
[2024-11-24 06:30] LABS: Calcium 8.3 mg/dL (8.7-10.4); Glucose 166 mg/dL (74-106); Sodium 130 mmol/L (136-145)
[2024-11-24] MEDS: LOSARTAN POTASSIUM 50 MG TAB PO SCH (08:54)
[2024-11-24] MEDS: NIFEdipine ER 30 MG TAB PO SCH (08:55)
--- NOTE | 2024-11-24 10:19 | DVH ---
CLINICAL INDICATION: r/o OM COMPARISON: Radiograph of the right foot dated 11/22/2024. TECHNIQUE: Multiplanar, multisequence MRI of the right foot was performed without intravenous contras t. Contrast: None. INTERPRETATION: Bones: No evidence of acute fracture. Subchondral cysts noted in the calcaneus. Patchy bone marrow edema is present in the calcaneus, navicular bone, lateral cuneiform and the 2nd metatarsal bone. No corresponding T1 hypointensity to suggest marrow replacement. Joints: Subtalar joint arthrosis. Hallux valgus. 2nd through 5th metatarsophalangeal arthrosis. 2nd, 3rd and 4th hammertoe deformities. Soft tissues: There is soft tissue ulceration of the plantar surface of the hindfoot which extends to the plantar fascia, associated with soft tissue edema. There is no fluid collection. There is thic kening of the plantar fascia at its origin with T2 hyperintensity compatible with plantar fasciitis. No tendon tear. The visualized flexor and extensor tendons in the foot are unremarkable. There is T 2 hyperintensity along the plantar soft tissues of the 5th distal phalanx which may represent fluid o r dressing. Diffuse intramuscular edema is present in the intrinsic muscles of the foot. There is clare rpabhjot soft tissue edema. IMPRESSION: 1. No MR evidence of osteomyelitis in the right foot. 2. Soft tissue edema and ulceration in the posterior and plantar surface of the foot suggestive of so ft tissue infection. No obvious fluid collection. 3. Dorsal soft tissue edema may reflect cellulitis or sequelae of venous stasis. 4. Plantar fasciitis. 5. Edema in the intrinsic muscles of the foot which may reflect myositis or denervation edema. 6. Fluid versus dressing in the plantar soft tissues of the 5th distal phalanx. 7. Arthrosis and hammertoe deformities as described.
--- NOTE | 2024-11-24 13:04 | DVHPN2 ---
Subjective The patient is a 54-year-old male with past medical history of [place] and hypertension who presented to [facility] ED with complaint of bilateral foot blisters right greater than left. Patient reports experiencing foot ulcers for the past one week, associated popped blisters, became red, and painful wounds, progressively get worse that prompted this visit. Patient was seen and evaluated in the ED, laboratory data shows WBC 6.1, platelets 238, sodium 136, potassium 4.0, BUN 13, creatinine 0.80, glucose 105, lactic acid 0.7, total bilirubin 1.6, blood pressure 177/96 trending down to 168/74, heart rate 74, temperature 98.1 F, O2 saturation 98% on room air. Foot x-ray revealing diffuse soft tissue edema and swelling, x-ray of the tibia and fibula revealing subcutaneous edema, greater distally. Patient was started on IV antibiotic regimen vancomycin, please see medication orders section in the computer. On my assessment, patient denied chest pain, no headache, no dizziness, no diaphoresis, no shortness of breath, no nausea, no vomiting, no fever, no chills. Patient was admitted for further evaluation and medical management. Changes from previous H/P or p: No Changes Eyes: No Pain, No Vision change, No Conjunctivae inflammation, No Eyelid inflammation; Other (Right eye prosthesis); No Redness ENT: No Ear pain, No Ear discharge, No Nose pain, No Nose discharge, No Nose congestion, No Mouth pain, No Mouth swelling, No Throat pain, No Throat swelling, No Other Cardiovascular: No Chest Pain, No Palpitations, No Orthopnea, No Paroxysmal Noc. Dyspnea, No Edema, No Lt Headedness, No Other Respiratory: No Cough, No Dry, No Shortness of breath, No SOB with excertion, No Wheezing, No Hemoptysis, No Pleuritic Pain, No Sputum, No Other Gastrointestinal: No Nausea, No Vomiting, No Abdominal Pain, No Diarrhea, No Constipation, No Melena, No Hematochezia, No Other Genitourinary: No Dysuria, No Frequency, No Incontinence, No Hematuria, No Retention, No Other Musculoskeletal: other (Lower extremity swelling); No neck pain, No shoulder pain, No arm pain, No back pain, No hand pain, No leg pain; foot pain Skin: No Rash; Lesions; No Jaundice, No Bruising; Other (Blisters) Objective Vitals Vital Signs Date Time Temp Pulse Resp B/P (MAP) Pulse Ox O2 Delivery O2 Flow Rate FiO2 11/24/24 10:14 86 18 125/72 11/24/24 09:00 99.2 98 99.2 11/24/24 08:00 Room Air* 0 21 Intake/Output Intake and Output 11/24/24 07:00 Intake Total 3720.5 ml Output Total 2244 ml Balance 1476.5 ml Intake Oral 2718 ml IV Total 1002.5 ml Output Urine Total 2244 ml Exam Dermatological: Skin is dry with mild erythema and some maceration around the wound site No gross deformities noted Mild non-pitting edema present bilaterally Multiple superficial blisters on the right lower extremity with serous drainage Heel wound a proximally 3 cm x 3 cm by 2 cm with eschar and malodor Vascular: Dorsalis pedis and posterior tibial pulses are 1+ bilaterally Capillary refill is under 2 seconds Skin temperature is warm bilaterally Neurologic: Protective sensation is absent on the plantar forefoot bilaterally Monofilament testing reveals decreased sensation in multiple plantar sites Musculoskeletal: Range of motion at the ankle and MTP joints is within normal limits. Strength is 5/5 in all tested muscle groups. Gait is antalgic due to offloading of the affected limb. Medications Current Medications Medications Dose Ordered Sig/Rei Route Start Time Stop Time Status Last Admin Dose Admin Vancomycin HCl 0 ml @ 0 mls/hr UD IV 11/22/24 15:45 Cefepime HCl 50 ml @ 12.5 mls/hr Q8HR IV 11/22/24 22:00 11/24/24 05:32 12.5 MLS/HR Acetaminophen/ Hydrocodone Bitart 1 tab Q4HP PRN PO 11/22/24 15:45 11/23/24 17:07 1 TAB Ondansetron HCl 4 mg Q4HP PRN IV 11/22/24 15:45 11/22/24 19:14 4 MG Enoxaparin Sodium 40 mg DAILY SC 11/23/24 10:00 11/24/24 08:55 40 MG Acetaminophen 650 mg Q6HP PRN PO 11/22/24 15:45 Morphine Sulfate 2 mg Q4HPRN PRN IV 11/22/24 15:45 11/24/24 08:56 2 MG Vancomycin HCl 200 ml @ 200 mls/hr Q8H IV 11/22/24 21:00 11/24/24 04:08 200 MLS/HR Famotidine 20 mg Q12HR PO 11/23/24 22:00 11/24/24 08:55 20 MG Losartan Potassium 50 mg DAILY PO 11/24/24 10:00 11/24/24 08:54 50 MG Nifedipine 90 mg DAILY PO 11/24/24 10:00 11/24/24 08:55 90 MG Laboratory Results Laboratory Tests 11/24/24 05:03 Chemistry Test 11/24/24 05:03 Calcium Level 8.3 mg/dL (8.7-10.4) L Urinalysis Test 11/22/24 13:50 Urine Color Yellow (Yellow) Urine Clarity Clear (Clear) Urine pH 6.5 (5.0-9.0) Urine Specific [place] 1.018 (1.001-1.035) Urine Protein Trace (Negative) H Urine Ketones Negative (Negative) Urine Blood Negative /uL (Negative) Urine Nitrite Negative (Negative) Urine Bilirubin Negative (Negative) Urine Urobilinogen 2 mg/dL (Negative) H Urine Leukocyte Esterase Negative /uL (Negative) Urine RBC 2 /hpf (0 - 3) Urine Microscopic WBC /HPF (0-3) Urine Squamous Epithelial Cells None seen /hpf (<5) Urine Bacteria None seen /hpf (None Seen) Urine Glucose Normal mg/dL (Normal) Microbiology Microbiology Date/Time Source Procedure Growth Status 11/23/24 12:19 Foot Gram Stain Pending Resulted 11/23/24 12:19 Foot Anaerobic Culture - Preliminary Resulted 11/23/24 12:19 Aerobic Culture - Preliminary Streptococcus Group B Resulted 11/22/24 13:11 Blood Blood Culture - Preliminary NO GROWTH AFTER 24 HOURS OF INCUBATION. Resulted Assessment/Plan Assessment/Plan ASSESSMENT: Patient is a 54 year old seen on the floor 1 day s/p from right foot I&D PLAN: - The patients chart was reviewed, clinical findings were discussed with the patient, the etiologies of the conditions were discussed in detail, and a treatment plan was agreed to at this time, with both oral and written instructions provided. - reviewed advanced imaging - discussed plan is to perform an incision and drainage tomorrow - we will be NPO at midnight - take him to the OR tomorrow - patient would benefit from follow up foot care with swelling in his left leg - can weightbear as tolerated in postoperative shoe All questions were answered and concerns addressed to the patient's satisfaction. The patient was given the phone number to the clinic and was told how to make contact with the clinic should any concerns or questions arise. Patient understands that if any questions or concerns arise prior to the next appointment, we should be contacted immediately. FOLLOW-UP: Continue to follow while inpatient Plan discussed with: Patient My Orders Orders - RADHA MANNING DPM Procedure Category Date Status Time Mri R Foot Wo Contrast MRI 11/24/24 Resulted 08:45 Npo After Midnight EDDIE 11/24/24 Transmitted 12:54 Npo (Nothing By DIET 11/25/24 Transmitted Mouth) Diet Breakfast Obtain Consent For: ORDERS 11/24/24 Transmitted 12:54 Problem List: (1) Cellulitis of right lower extremity (2) Blister of foot, left (3) Blister of foot, right (4) Alcohol intoxication (5) Alcohol abuse (6) Hyperglycemia (7) Leukopenia (8) Chest pain (9) Eloped from emergency department Date of Service: November 24, 2024 Billing Provider: RADHA MANNING DPM Common Visit Codes: [id number] INP/OBS CARE(HIGH) RADHA MANNING DPM November 24, 2024 13:04
--- NOTE | 2024-11-24 14:09 | DVHSR ---
APPROVED REPORT EXAM: Two-dimensional and M-mode echocardiogram with Doppler and color Doppler. Blood Pressure: 109/63 mmHg INDICATION Hypertension RISK FACTORS Height: 5'10", Weight: 242 DIMENSIONS LVDd5.0 (3.8-5.7cm)LA (2D)4.9 (1.9-4.0cm)Aortic Root3.1 (2.0-3.7cm) LVDs2.9 (2.5-4.0cm)LA (MM) (1.9-4.0cm)Aortic Cusp Exc1.9 (1.5-2.0cm) EF (%) 72.0 (55-70%)Rt. Atrium4.7 (1.9-4.0cm)Asc. Aorta3.7 cm IVSd1.5 (0.7-1.1cm)RV (D)4.7 (1.8-2.4cm) PWd1.2 (0.7-1.1cm) Mitral Valve MitralMitral Stenosis E wave1.26m/sMV Mean GR.mmHg A wave0.73m/sMV Peak GR.mmHg E/A ratio1.72D MVAcm2 DECEL [id number] 1/2 Timems Aortic Valve Aortic ValveAortic Stenosis V11.26m/Rusty Mean GR.8mmHg V21.79m/Rusty Peak GR.13mmHg LVOT Diameter2.4 (1.8-2.4cm)Doppler AVA3.18cm2 Pulmonic Valve V21.27m/s Tricuspid Valve TR Velocity3.00m/s [id number] Conclusion lvef 65% by visual estimate normal rv function normal atria no severe valve abnormalities noted moderate aortic valve thickening noted
[2024-11-24] MEDS ORDERED: POLYETHYLENE GLYCOL 17 GM PWDR PO PRN (18:15)
[2024-11-24] MEDS: VANCOMYCIN 1.25GM/250ML 250 ML IV SCH (21:27)
[2024-11-24] MEDS: DOCUSATE SOD 100 MG CAP PO SCH (21:27)
--- NOTE | 2024-11-24 22:32 | DVHPNRES ---
Progress Note Date Seen: November 24, 2024 Resident Creating Document: MARGARETTE AGUILAR RESIDENT Medical Necessity Reason Pt with a Central, PICC or Fol: No Subjective Review of Systems Patient seen and examined at the bedside Reports mild pain in the right foot s/p I and D in a sterile dressing Denies fever, chills, palpitations, abdominal pain Objective vital signs Vital Sign Date Time Temp Pulse Resp B/P (MAP) Pulse Ox O2 Delivery O2 Flow Rate FiO2 11/24/24 20:53 98.5 85 16 93/52 (66) 97 98.5 11/24/24 20:00 Room Air* 0 21 Total Intake and Output 11/23/24 11/23/24 11/24/24 15:00 23:00 07:00 Intake Total 265 ml 2005.5 ml 1450 ml Output Total 1144 ml 1100 ml Balance 265 ml 861.5 ml 350 ml medications Current Medications Medications Dose Ordered Sig/Rei Route Start Time Stop Time Status Last Admin Dose Admin Vancomycin HCl 0 ml @ 0 mls/hr UD IV 11/22/24 15:45 Cefepime HCl 50 ml @ 12.5 mls/hr Q8HR IV 11/22/24 22:00 11/24/24 22:27 12.5 MLS/HR Acetaminophen/ Hydrocodone Bitart 1 tab Q4HP PRN PO 11/22/24 15:45 11/23/24 17:07 1 TAB Ondansetron HCl 4 mg Q4HP PRN IV 11/22/24 15:45 11/22/24 19:14 4 MG Enoxaparin Sodium 40 mg DAILY SC 11/23/24 10:00 11/24/24 08:55 40 MG Acetaminophen 650 mg Q6HP PRN PO 11/22/24 15:45 Morphine Sulfate 2 mg Q4HPRN PRN IV 11/22/24 15:45 11/24/24 08:56 2 MG Famotidine 20 mg Q12HR PO 11/23/24 22:00 11/24/24 21:27 20 MG Losartan Potassium 50 mg DAILY PO 11/24/24 10:00 11/24/24 08:54 50 MG Nifedipine 90 mg DAILY PO 11/24/24 10:00 11/24/24 08:55 90 MG Polyethylene Glycol 17 gm DAILYPRN PRN PO 11/24/24 18:15 Docusate Sodium 100 mg BID PO 11/24/24 22:00 11/24/24 21:27 100 MG Vancomycin HCl 250 ml @ 200 mls/hr Q12H IV 11/24/24 22:00 11/24/24 21:27 200 MLS/HR Examination Constitutional: Patient is alert and oriented to time, place and person and does not appear to be in any acute distress Gen - no pallor, no icterus, no cyanosis, no clubbing, no LAD, no edema . Skin - Patients skin is warm and dry.. 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 no crackles , no wheezing, no stridor. cardiovascular - regular S1,S2 heard, no added sounds, no murmurs heard. peripheral pulses normal radial 2+, left pedal 2+. capillary refill normal <2 secs. GI - soft, nontender abdomen . no hepatospleenomegaly. Bowel sounds normoactive Neurological - Patient is A/O X 3 . Bilateral upper extremity strength 5/5, bilateral lower extremity strength 5/5, no facial droop, normal speech, no tremor, decreased sensation in the bilateral tip of the toes laboratory and microbiology Laboratory Tests 11/24/24 05:03 Test 11/24/24 05:03 Range/Units Serum Glucose 166 H 74-106 mg/dL Microbiology Date/Time Source Procedure Growth Status 11/23/24 12:19 Foot Gram Stain - Final Resulted 11/23/24 12:19 Foot Anaerobic Culture - Preliminary Resulted 11/23/24 12:19 Aerobic Culture - Preliminary Streptococcus Group B Resulted 11/22/24 13:11 Blood Blood Culture - Preliminary NO GROWTH AFTER 48 HOURS OF INCUBATION. Resulted Problem List/Assessment/Plan Problem List/Assessment/Plan Right heel ulcer Right foot and ankle cellulitis Right foot and ankle multiple blisters, burn injury - foot x-ray shows soft tissue edema and swelling - right lower extremity CT without contrast showed cellulitis, no CT findings suggestive of acute osteomyelitis - podiatry consulted - status post right heel I&D to bone and I&D multiple abscesses - cultures pending - on IV antibiotics cefepime and vancomycin Chronic alcoholism Microcytic hypochromic anemia ? Vitamin B12 deficiency - vitamin B12 levels pending - patient counseled to stop drinking alcohol over 15 minutes Hypertensive heart disease with questionable heart failure - on nifedipine 90 mg and losartan 50 mg - echocardiogram pending DVT prophylaxis: Enoxaparin PUD prophylaxis: Famotidine Goals of care discussed with the patient for over 23 minutes. Full code Plan discussed with Dr. Tejada Plan discussed with: Patient Date of Service: November 24, 2024 Billing Provider: BOBBY TEJADA MD Common Visit Codes: [id number] INP/OBS CARE(HIGH) MARGARETTE AGUILAR RESIDENT November 24, 2024 22:32 BOBBY TEJADA MD November 25, 2024 23:34
[2024-11-25] VITALS (9 sets, daily range): BP systolic 96–128; BP diastolic 53–75; PULSE 74–85; RESP 16–20; TEMP 97.6–99; O2SAT 94–98
[2024-11-25 07:07] LABS: Chloride 98 mmol/L (98-107); Potassium 3.9 mmol/L (3.5-5.1)
[2024-11-25 07:08] LABS: Anion Gap 7 (5-15); Calcium 8.2 mg/dL (8.7-10.4); Carbon Dioxide 25 mmol/L (20-31); Sodium 130 mmol/L (136-145)
[2024-11-25 07:13] LABS: Blood Urea Nitrogen 22 mg/dL (9-23)
[2024-11-25 07:21] LABS: Glucose 144 mg/dL (74-106)
[2024-11-25 07:31] LABS: Eosinophils # (auto) 0.1 10 ^3/uL (0-0.8); Neutrophils # (auto) 6.4 10 ^3/uL (1.6-8.6); Neutrophils % (auto) 75.2 % (37.0-80.0); White Blood Cell 8.5 10^3/uL (4.4-10.8)
[2024-11-25 07:34] LABS: Basophils # (auto) 0 10 ^3/uL (0-0.2); Basophils % (auto) 0.5 % (0.0-2.0); Eosinophils % (auto) 0.8 % (0.0-7.0); Hemoglobin 11.9 g/dL (13.5-17.5); Lymphocytes % (auto) 12.1 % (10.0-50.0); Mean Corpuscular Hemoglobin 36.1 pg (28.0-32.0); Mean Corpuscular Hgb Conc. 36.1 g/dL (32.0-36.0); Mean Corpuscular Volume 100.1 fL (80.0-100.0); Monocytes % (auto) 11.4 % (0.0-12.0); Platelet Count (auto) 201 10^3/uL (140-450); Red Blood Cells 3.29 10^6/uL (4.5-5.90); Red Cell Distribution Width 12.8 % (11.8-14.3)
[2024-11-25] MEDS ORDERED: fentaNYL CITRATE 100 MCG/2 ML VL ONE (08:43)
[2024-11-25] MEDS ORDERED: MIDAZOLAM HCL 2MG/2ML 2ml VIAL (1mg/ml) ONE (08:43)
[2024-11-25] MEDS: BUPIVACAINE 0.5% P/F INJ 10 ML VIAL ONE (08:56)
[2024-11-25] MEDS ORDERED: PROPOFOL 10 MG/ML 20 ML IV ONE (09:09)
[2024-11-25] MEDS ORDERED: DexAMETHasone SOD PHOS 10MG/1ML VIAL INJ ONE (09:09)
--- NOTE | 2024-11-25 12:34 | DVHPN2 ---
Subjective The patient is a 54-year-old male with past medical history of [place] and hypertension who presented to [facility] ED with complaint of bilateral foot blisters right greater than left. Patient reports experiencing foot ulcers for the past one week, associated popped blisters, became red, and painful wounds, progressively get worse that prompted this visit. Patient was seen and evaluated in the ED, laboratory data shows WBC 6.1, platelets 238, sodium 136, potassium 4.0, BUN 13, creatinine 0.80, glucose 105, lactic acid 0.7, total bilirubin 1.6, blood pressure 177/96 trending down to 168/74, heart rate 74, temperature 98.1 F, O2 saturation 98% on room air. Foot x-ray revealing diffuse soft tissue edema and swelling, x-ray of the tibia and fibula revealing subcutaneous edema, greater distally. Patient was started on IV antibiotic regimen vancomycin, please see medication orders section in the computer. On my assessment, patient denied chest pain, no headache, no dizziness, no diaphoresis, no shortness of breath, no nausea, no vomiting, no fever, no chills. Patient was admitted for further evaluation and medical management. Changes from previous H/P or p: No Changes Eyes: No Pain, No Vision change, No Conjunctivae inflammation, No Eyelid inflammation; Other (Right eye prosthesis); No Redness ENT: No Ear pain, No Ear discharge, No Nose pain, No Nose discharge, No Nose congestion, No Mouth pain, No Mouth swelling, No Throat pain, No Throat swelling, No Other Cardiovascular: No Chest Pain, No Palpitations, No Orthopnea, No Paroxysmal Noc. Dyspnea, No Edema, No Lt Headedness, No Other Respiratory: No Cough, No Dry, No Shortness of breath, No SOB with excertion, No Wheezing, No Hemoptysis, No Pleuritic Pain, No Sputum, No Other Gastrointestinal: No Nausea, No Vomiting, No Abdominal Pain, No Diarrhea, No Constipation, No Melena, No Hematochezia, No Other Genitourinary: No Dysuria, No Frequency, No Incontinence, No Hematuria, No Retention, No Other Musculoskeletal: other (Lower extremity swelling); No neck pain, No shoulder pain, No arm pain, No back pain, No hand pain, No leg pain; foot pain Skin: No Rash; Lesions; No Jaundice, No Bruising; Other (Blisters) Objective Vitals Vital Signs Date Time Temp Pulse Resp B/P (MAP) Pulse Ox O2 Delivery O2 Flow Rate FiO2 11/25/24 10:45 128/75 11/25/24 10:01 98.6 85 18 95 98.6 11/25/24 08:00 Room Air* 0 21 Intake/Output Intake and Output 11/25/24 07:00 Intake Total 1285 ml Output Total 1210 ml Balance 75 ml Intake Oral 1035 ml IV Total 250 ml Output Urine Total 1210 ml Exam Dermatological: Skin is dry with mild erythema and some maceration around the wound site No gross deformities noted Mild non-pitting edema present bilaterally Multiple superficial blisters on the right lower extremity with serous drainage Heel wound a proximally 3 cm x 3 cm by 2 cm with eschar and malodor Vascular: Dorsalis pedis and posterior tibial pulses are 1+ bilaterally Capillary refill is under 2 seconds Skin temperature is warm bilaterally Neurologic: Protective sensation is absent on the plantar forefoot bilaterally Monofilament testing reveals decreased sensation in multiple plantar sites Musculoskeletal: Range of motion at the ankle and MTP joints is within normal limits. Strength is 5/5 in all tested muscle groups. Gait is antalgic due to offloading of the affected limb. Medications Current Medications Medications Dose Ordered Sig/Rei Route Start Time Stop Time Status Last Admin Dose Admin Vancomycin HCl 0 ml @ 0 mls/hr UD IV 11/22/24 15:45 Cefepime HCl 50 ml @ 12.5 mls/hr Q8HR IV 11/22/24 22:00 11/25/24 05:32 12.5 MLS/HR Acetaminophen/ Hydrocodone Bitart 1 tab Q4HP PRN PO 11/22/24 15:45 11/23/24 17:07 1 TAB Ondansetron HCl 4 mg Q4HP PRN IV 11/22/24 15:45 11/22/24 19:14 4 MG Enoxaparin Sodium 40 mg DAILY SC 11/23/24 10:00 11/24/24 08:55 40 MG Acetaminophen 650 mg Q6HP PRN PO 11/22/24 15:45 Morphine Sulfate 2 mg Q4HPRN PRN IV 11/22/24 15:45 11/24/24 08:56 2 MG Famotidine 20 mg Q12HR PO 11/23/24 22:00 11/25/24 10:44 20 MG Losartan Potassium 50 mg DAILY PO 11/24/24 10:00 11/25/24 10:44 50 MG Nifedipine 90 mg DAILY PO 11/24/24 10:00 11/25/24 10:45 90 MG Polyethylene Glycol 17 gm DAILYPRN PRN PO 11/24/24 18:15 Docusate Sodium 100 mg BID PO 11/24/24 22:00 11/25/24 10:44 100 MG Vancomycin HCl 250 ml @ 200 mls/hr Q12H IV 11/24/24 22:00 11/25/24 11:04 200 MLS/HR Laboratory Results Laboratory Tests 11/25/24 06:10 Chemistry Test 11/25/24 06:10 Calcium Level 8.2 mg/dL (8.7-10.4) L Urinalysis Test 11/22/24 13:50 Urine Color Yellow (Yellow) Urine Clarity Clear (Clear) Urine pH 6.5 (5.0-9.0) Urine Specific [place] 1.018 (1.001-1.035) Urine Protein Trace (Negative) H Urine Ketones Negative (Negative) Urine Blood Negative /uL (Negative) Urine Nitrite Negative (Negative) Urine Bilirubin Negative (Negative) Urine Urobilinogen 2 mg/dL (Negative) H Urine Leukocyte Esterase Negative /uL (Negative) Urine RBC 2 /hpf (0 - 3) Urine Microscopic WBC /HPF (0-3) Urine Squamous Epithelial Cells None seen /hpf (<5) Urine Bacteria None seen /hpf (None Seen) Urine Glucose Normal mg/dL (Normal) Microbiology Microbiology Date/Time Source Procedure Growth Status 11/23/24 12:19 Foot Gram Stain - Final Resulted 11/23/24 12:19 Foot Anaerobic Culture - Preliminary Resulted 11/23/24 12:19 Aerobic Culture - Preliminary Streptococcus Group B Resulted 11/22/24 13:11 Blood Blood Culture - Preliminary NO GROWTH AFTER 48 HOURS OF INCUBATION. Resulted Assessment/Plan Assessment/Plan ASSESSMENT: Patient is a 54 year old seen on the floor 2 day s/p from right foot I&D PLAN: - The patients chart was reviewed, clinical findings were discussed with the patient, the etiologies of the conditions were discussed in detail, and a treatment plan was agreed to at this time, with both oral and written instructions provided. - reviewed advanced imaging - discussed plan is to perform an incision and drainage today - patient has been NPO since midnight - take him to the OR today - patient would benefit from follow up foot care with swelling in his left leg - can weightbear as tolerated in postoperative shoe All questions were answered and concerns addressed to the patient's satisfaction. The patient was given the phone number to the clinic and was told how to make contact with the clinic should any concerns or questions arise. Patient understands that if any questions or concerns arise prior to the next appointment, we should be contacted immediately. FOLLOW-UP: Continue to follow while inpatient Plan discussed with: Patient My Orders Orders - RADHA MANNING DPM Procedure Category Date Status Time Obtain Consent For: ORDERS 11/24/24 Transmitted 12:54 Cardiac DIET 11/25/24 Transmitted Diet-2gna,Lofat,Lochol Lunch Gram Stain CLAU 11/25/24 In Process 10:39 Routine Bacterial CLAU 11/25/24 In Process Culture 10:39 Anaerobic Culture CLAU 11/25/24 In Process 10:39 Problem List: (1) Cellulitis of right lower extremity (2) Blister of foot, left (3) Blister of foot, right (4) Alcohol intoxication (5) Alcohol abuse (6) Hyperglycemia (7) Leukopenia (8) Chest pain (9) Eloped from emergency department Date of Service: November 25, 2024 Billing Provider: RADHA MANNING DPM Common Visit Codes: [id number] INP/OBS CARE(HIGH) RADHA MANNING DPM November 25, 2024 12:34
--- NOTE | 2024-11-25 12:35 | DVHOP2 ---
Operative Report - 2 Report Details Date: 11/25/24 Preop Diagnosis: 1. Right heel abscess 2. Right heel osteomyelitis 3. Right foot and ankle cellulitis 4. Right foot and ankle multiple blisters Postop Diagnosis: Same as preop Surgeon: Radha Manning MD Anesthesiologist: None Anesthesia: Local Consent: The patient was informed of the risks and benefits of the procedure. These include but are not limited to complications of anesthesia, postoperative infection, incomplete relief of symptoms, recurrence of symptoms, damage to blood vessels, nerves and tendons, deep venous thrombosis, pulmonary embolism and possible need for repeat surgery in the future. Complications: None Estimated Blood Loss: Minimal Fluids: See anesthesia Findings: Consistent with diagnosis Indications for Surgery: Worsening foot wound Name of Procedure Performed 1. Right heel I&D to bone (66388) Procedure Details Procedure Details: PRE-PROCEDURE INFORMATION: In the pre-op holding area, the extremity to be operated on was clearly marked and the patient verified correct laterality of the marking. The patient was transferred to the OR table and placed in a supine position. A timeout was performed in which identification of the correct patient, procedure, location, and materials was done. The left foot and leg were prepped and draped in normal sterile fashion. DESCRIPTION OF PROCEDURE: Attention was directed to the left where previous incision was made. An incision was made over this area and was deepened through blunt dissection. The incision was deepened to the level of abscess and bone. Care was taken to the dissection to avoid any neurovascular and tendinous structures. The incision was deepened to the bone, and the abscess appeared to be purulent fluid consistent with pus. The cortices of the bone was then removed with rongeur an all necrotic tissue. After the abscess was drained, the area was irrigated with 3 L normal saline using cysto tubing. he area was then inspected and any areas of tracking, especially along the tendons were also drained. The wound was packed with Betadine-soaked gauze. POSTOPERATIVE INFORMATION: The patient tolerated the above noted procedure and anesthesia well and was transferred to the PACU with vital signs stable, and vascular status intact with capillary refill intact to all digits. Patient will return to the floor and continue IV antibiotics. Patient would benefit from a wound VAC although difficult if he is going to be weightbearing. There is significant tissue loss which need to be filled in. No other surgical procedures recommended at this point. Condition Good Disposition Still a Patient RADHA MANNING DPM November 25, 2024 12:35
--- NOTE | 2024-11-25 17:03 | DVHPNRES ---
Progress Note Date Seen: November 25, 2024 Resident Creating Document: MARGARETTE AGUILAR RESIDENT Medical Necessity Reason Pt with a Central, PICC or Fol: No Subjective Review of Systems Patient seen and examined at the bedside Reports mild pain in the right foot s/p I and D in a sterile dressing, 2nd session done today Denies fever, chills, palpitations, abdominal pain Objective vital signs Vital Sign Date Time Temp Pulse Resp B/P (MAP) Pulse Ox O2 Delivery O2 Flow Rate FiO2 11/25/24 13:00 99.0 84 20 116/64 (81) 94 99.0 11/25/24 08:00 Room Air* 0 21 Total Intake and Output 11/24/24 11/24/24 11/25/24 15:00 23:00 07:00 Intake Total 250 ml 735 ml 300 ml Output Total 700 ml 510 ml Balance 250 ml 35 ml -210 ml medications Current Medications Medications Dose Ordered Sig/Rei Route Start Time Stop Time Status Last Admin Dose Admin Vancomycin HCl 0 ml @ 0 mls/hr UD IV 11/22/24 15:45 Cefepime HCl 50 ml @ 12.5 mls/hr Q8HR IV 11/22/24 22:00 11/25/24 14:42 12.5 MLS/HR Acetaminophen/ Hydrocodone Bitart 1 tab Q4HP PRN PO 11/22/24 15:45 11/23/24 17:07 1 TAB Ondansetron HCl 4 mg Q4HP PRN IV 11/22/24 15:45 11/22/24 19:14 4 MG Enoxaparin Sodium 40 mg DAILY SC 11/23/24 10:00 11/24/24 08:55 40 MG Acetaminophen 650 mg Q6HP PRN PO 11/22/24 15:45 Morphine Sulfate 2 mg Q4HPRN PRN IV 11/22/24 15:45 11/24/24 08:56 2 MG Famotidine 20 mg Q12HR PO 11/23/24 22:00 11/25/24 10:44 20 MG Losartan Potassium 50 mg DAILY PO 11/24/24 10:00 11/25/24 10:44 50 MG Nifedipine 90 mg DAILY PO 11/24/24 10:00 11/25/24 10:45 90 MG Polyethylene Glycol 17 gm DAILYPRN PRN PO 11/24/24 18:15 Docusate Sodium 100 mg BID PO 11/24/24 22:00 11/25/24 10:44 100 MG Vancomycin HCl 250 ml @ 200 mls/hr Q12H IV 11/24/24 22:00 11/25/24 11:04 200 MLS/HR Examination Constitutional: Patient is alert and oriented to time, place and person and does not appear to be in any acute distress Gen - no pallor, no icterus, no cyanosis, no clubbing, no LAD, no edema . Skin - Patients skin is warm and dry.. 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 no crackles , no wheezing, no stridor. cardiovascular - regular S1,S2 heard, no added sounds, no murmurs heard. peripheral pulses normal radial 2+, left pedal 2+. capillary refill normal <2 secs. GI - soft, nontender abdomen . no hepatospleenomegaly. Bowel sounds normoactive Neurological - Patient is A/O X 3 . Bilateral upper extremity strength 5/5, bilateral lower extremity strength 5/5, no facial droop, normal speech, no tremor, decreased sensation in the bilateral tip of the toes laboratory and microbiology Laboratory Tests 11/25/24 06:10 Test 11/25/24 06:10 Range/Units Serum Glucose 144 H 74-106 mg/dL Microbiology Date/Time Source Procedure Growth Status 11/23/24 12:19 Foot Gram Stain - Final Resulted 11/23/24 12:19 Foot Anaerobic Culture - Preliminary Resulted 11/23/24 12:19 Aerobic Culture - Preliminary Streptococcus Group B Resulted 11/22/24 13:11 Blood Blood Culture - Preliminary NO GROWTH AFTER 72 HOURS OF INCUBATION. Resulted Problem List/Assessment/Plan Problem List/Assessment/Plan Right heel ulcer Right foot and ankle cellulitis Right foot and ankle multiple blisters, burn injury - foot x-ray shows soft tissue edema and swelling - right lower extremity CT without contrast showed cellulitis, no CT findings suggestive of acute osteomyelitis - MRI right foot showed no evidence of osteomyelitis, no obvious fluid collection - podiatry consulted - status post right heel I&D to bone and I&D multiple abscesses - cultures pending - on IV antibiotics cefepime and vancomycin - physical therapy evaluation to be done today Chronic alcoholism Microcytic hypochromic anemia ? Vitamin B12 deficiency - vitamin B12 levels pending - patient counseled to stop drinking alcohol over 15 minutes Hypertensive heart disease with questionable heart failure - on nifedipine 90 mg and losartan 50 mg - echocardiogram showed LVEF 65%, normal RV function, normal atria, no severe valvular abnormalities noted DVT prophylaxis: Enoxaparin PUD prophylaxis: Famotidine Goals of care discussed with the patient for over 27 minutes. Full code Plan discussed with Dr. Tejada Plan discussed with: Patient My Orders My Orders Orders - MARGARETTE AGUILAR Procedure Category Date Status Time Pt Request For Service PT 11/25/24 Logged 12:14 Date of Service: November 25, 2024 Billing Provider: BOBBY TEJADA MD Common Visit Codes: [id number] INP/OBS CARE(HIGH) MARGARETTE AGUILAR November 25, 2024 17:03 BOBBY TEJADA MD November 25, 2024 23:34
[2024-11-25] MEDS: GABAPENTIN 100 MG CAP PO SCH (21:01)
[2024-11-26] VITALS (7 sets, daily range): BP systolic 94–149; BP diastolic 52–99; PULSE 68–93; RESP 16–20; TEMP 97.8–98.8; O2SAT 96–99
[2024-11-26 08:00] LABS: Basophils # (auto) 0 10 ^3/uL (0-0.2); Basophils % (auto) 0.1 % (0.0-2.0); Eosinophils # (auto) 0 10 ^3/uL (0-0.8); Hematocrit 32.8 % (41.0-53.0); Hemoglobin 11.6 g/dL (13.5-17.5); Lymphocytes # (auto) 0.4 10 ^3/uL (0.4-5.4); Lymphocytes % (auto) 4.6 % (10.0-50.0); Mean Corpuscular Hemoglobin 35.4 pg (28.0-32.0); Mean Corpuscular Hgb Conc. 35.4 g/dL (32.0-36.0); Mean Corpuscular Volume 99.9 fL (80.0-100.0); Monocytes # (auto) 0.6 10 ^3/uL (0-1.3); Monocytes % (auto) 6.7 % (0.0-12.0); Neutrophils # (auto) 7.8 10 ^3/uL (1.6-8.6); Neutrophils % (auto) 88.6 % (37.0-80.0); Platelet Count (auto) 202 10^3/uL (140-450); Red Blood Cells 3.28 10^6/uL (4.5-5.90); Red Cell Distribution Width 12.6 % (11.8-14.3); White Blood Cell 8.9 10^3/uL (4.4-10.8)
[2024-11-26 08:07] LABS: Chloride 99 mmol/L (98-107); Potassium 4.7 mmol/L (3.5-5.1)
[2024-11-26 08:08] LABS: Anion Gap 7 (5-15); Carbon Dioxide 24 mmol/L (20-31)
[2024-11-26 08:09] LABS: Calcium 8.8 mg/dL (8.7-10.4)
[2024-11-26 08:13] LABS: Sodium 130 mmol/L (136-145)
[2024-11-26 08:14] LABS: BUN/Creatinine Ratio 35.1 (10.0-20.0)
[2024-11-26 08:17] LABS: Blood Urea Nitrogen 34 mg/dL (9-23); Glucose 271 mg/dL (74-106)
[2024-11-26] MEDS: ACCU-CHEK COMFORT CURVE STRIP VI ONE (14:47)
[2024-11-26] MEDS: DEXTROSE (50%) 50ML SYRG IV ONE (14:47)
[2024-11-26] MEDS: InsuLIN REG 1unit/0.01ml Soln (100units/ml) SC ONE (14:47)
--- NOTE | 2024-11-26 15:10 | DVHPNRES ---
Progress Note Date Seen: November 26, 2024 Resident Creating Document: TONIO OWUSU RESIDENT Medical Necessity Reason Pt with a Central, PICC or Fol: No Subjective Review of Systems Patient seen and examined at bedside No new complaints Denied fever, chills, chest pain, abdominal pain, shortness of breath, muscle weakness, sensory deficits. Patient underwent to time I and D, denying any foot pain at this point. Objective vital signs Vital Sign Date Time Temp Pulse Resp B/P (MAP) Pulse Ox O2 Delivery O2 Flow Rate FiO2 11/26/24 13:00 98.1 68 18 107/63 (78) 98 98.1 11/25/24 20:00 Room Air* 0 21 Total Intake and Output 11/25/24 11/25/24 11/26/24 15:00 23:00 07:00 Intake Total 350 ml 290 ml 800 ml Output Total 1000 ml 550 ml Balance 350 ml -710 ml 250 ml medications Current Medications Medications Dose Ordered Sig/Rei Route Start Time Stop Time Status Last Admin Dose Admin Vancomycin HCl 0 ml @ 0 mls/hr UD IV 11/22/24 15:45 Cefepime HCl 50 ml @ 12.5 mls/hr Q8HR IV 11/22/24 22:00 11/26/24 14:35 12.5 MLS/HR Acetaminophen/ Hydrocodone Bitart 1 tab Q4HP PRN PO 11/22/24 15:45 11/25/24 19:51 1 TAB Ondansetron HCl 4 mg Q4HP PRN IV 11/22/24 15:45 11/22/24 19:14 4 MG Enoxaparin Sodium 40 mg DAILY SC 11/23/24 10:00 11/26/24 09:05 40 MG Acetaminophen 650 mg Q6HP PRN PO 11/22/24 15:45 Morphine Sulfate 2 mg Q4HPRN PRN IV 11/22/24 15:45 11/24/24 08:56 2 MG Famotidine 20 mg Q12HR PO 11/23/24 22:00 11/26/24 09:05 20 MG Losartan Potassium 50 mg DAILY PO 11/24/24 10:00 11/26/24 09:05 50 MG Nifedipine 90 mg DAILY PO 11/24/24 10:00 11/26/24 09:04 90 MG Polyethylene Glycol 17 gm DAILYPRN PRN PO 11/24/24 18:15 Docusate Sodium 100 mg BID PO 11/24/24 22:00 11/26/24 09:03 100 MG Vancomycin HCl 250 ml @ 200 mls/hr Q12H IV 11/24/24 22:00 11/26/24 10:33 200 MLS/HR Gabapentin 100 mg TID PO 11/25/24 22:00 11/26/24 14:36 100 MG Examination Constitutional: Patient is alert and oriented to time, place and person and does not appear to be in any acute distress Gen - no pallor, no icterus, no cyanosis, no clubbing, no LAD, no edema . Skin - Patients skin is warm and dry.. 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 no crackles , no wheezing, no stridor. cardiovascular - regular S1,S2 heard, no added sounds, no murmurs heard. peripheral pulses normal radial 2+, left pedal 2+. capillary refill normal <2 secs. GI - soft, nontender abdomen . no hepatospleenomegaly. Bowel sounds normoactive Neurological - Patient is A/O X 3 . Bilateral upper extremity strength 5/5, bilateral lower extremity strength 5/5, no facial droop, normal speech, no tremor, decreased sensation in the bilateral tip of the toes laboratory and microbiology Laboratory Tests 11/26/24 09:12 11/26/24 06:54 Test 11/26/24 06:54 Range/Units Serum Glucose 271 #H 74-106 mg/dL Microbiology Date/Time Source Procedure Growth Status 11/25/24 11:01 Other Other Gram Stain Pending Resulted 11/25/24 11:01 Other Other Anaerobic Culture - Preliminary Resulted 11/25/24 11:01 Other Other Aerobic Culture - Preliminary Resulted 11/22/24 13:11 Blood Blood Culture - Preliminary NO GROWTH AFTER 72 HOURS OF INCUBATION. Resulted Problem List/Assessment/Plan Problem List/Assessment/Plan Right heel ulcer Right foot and ankle cellulitis Right foot and ankle multiple blisters, burn injury - foot x-ray shows soft tissue edema and swelling - right lower extremity CT without contrast showed cellulitis, no CT findings suggestive of acute osteomyelitis - MRI right foot showed no evidence of osteomyelitis, no obvious fluid collection - podiatry consulted - status post right heel I&D to bone and I&D multiple abscesses - cultures Streptococcus B. - on IV antibiotics cefepime - physical therapy evaluation to be done today Chronic alcoholism Microcytic hypochromic anemia - patient counseled to stop drinking alcohol over 15 minutes Hypertensive heart disease with questionable heart failure - on nifedipine 90 mg and losartan 50 mg - echocardiogram showed LVEF 65%, normal RV function, normal atria, no severe valvular abnormalities noted DVT prophylaxis: Enoxaparin PUD prophylaxis: Famotidine Goals of care discussed with the patient for over 27 minutes. Full code Plan discussed with Dr. Tejada Plan discussed with: Patient, Other (RN) Date of Service: November 26, 2024 Billing Provider: BOBBY TEJADA MD Common Visit Codes: [id number] INP/OBS CARE(HIGH) TONIO OWUSU RESIDENT November 26, 2024 15:10 BOBBY TEJADA MD November 27, 2024 08:35
[2024-11-27 01:00] VITALS: BP 124/70; PULSE 76; RESP 18; TEMP 97.5; O2SAT 100
[2024-11-27 05:00] VITALS: BP 134/79; PULSE 77; RESP 18; TEMP 98; O2SAT 98
[2024-11-27 08:00] LABS: Anion Gap 8 (5-15); Basophils # (auto) 0 10 ^3/uL (0-0.2); Basophils % (auto) 0.7 % (0.0-2.0); Calcium 9.2 mg/dL (8.7-10.4); Carbon Dioxide 26 mmol/L (20-31); Chloride 99 mmol/L (98-107); Eosinophils # (auto) 0.1 10 ^3/uL (0-0.8); Eosinophils % (auto) 1.5 % (0.0-7.0); Hemoglobin 11.6 g/dL (13.5-17.5); Lymphocytes # (auto) 1.2 10 ^3/uL (0.4-5.4); Mean Corpuscular Hemoglobin 35.4 pg (28.0-32.0); Mean Corpuscular Hgb Conc. 35.2 g/dL (32.0-36.0); Mean Corpuscular Volume 100.6 fL (80.0-100.0); Monocytes # (auto) 0.6 10 ^3/uL (0-1.3); Neutrophils # (auto) 4.9 10 ^3/uL (1.6-8.6); Neutrophils % (auto) 70.8 % (37.0-80.0); Platelet Count (auto) 244 10^3/uL (140-450); Potassium 4.4 mmol/L (3.5-5.1); Red Blood Cells 3.28 10^6/uL (4.5-5.90); Red Cell Distribution Width 12.7 % (11.8-14.3); White Blood Cell 6.9 10^3/uL (4.4-10.8)
[2024-11-27 08:05] LABS: Sodium 133 mmol/L (136-145)
[2024-11-27 08:06] LABS: BUN/Creatinine Ratio 29.1 (10.0-20.0)
[2024-11-27 08:08] LABS: Blood Urea Nitrogen 23 mg/dL (9-23); Glucose 198 mg/dL (74-106)
[2024-11-27 09:00] VITALS: BP 141/75; PULSE 73; RESP 18; TEMP 98; O2SAT 99
--- NOTE | 2024-11-27 13:35 | DVHPN2 ---
Subjective The patient is seen and examined at bedside. No complaint today. No fever or chills. Reviewed: Care Plan, H&P, Labs, Medications, Previous Orders, Radiology Changes from previous H/P or p: No Changes Eyes: No Pain, No Vision change, No Conjunctivae inflammation, No Eyelid inflammation; Other (Right eye prosthesis); No Redness ENT: No Ear pain, No Ear discharge, No Nose pain, No Nose discharge, No Nose congestion, No Mouth pain, No Mouth swelling, No Throat pain, No Throat swelling, No Other Cardiovascular: No Chest Pain, No Palpitations, No Orthopnea, No Paroxysmal Noc. Dyspnea, No Edema, No Lt Headedness, No Other Respiratory: No Cough, No Dry, No Shortness of breath, No SOB with excertion, No Wheezing, No Hemoptysis, No Pleuritic Pain, No Sputum, No Other Gastrointestinal: No Nausea, No Vomiting, No Abdominal Pain, No Diarrhea, No Constipation, No Melena, No Hematochezia, No Other Genitourinary: No Dysuria, No Frequency, No Incontinence, No Hematuria, No Retention, No Other Musculoskeletal: other (Lower extremity swelling); No neck pain, No shoulder pain, No arm pain, No back pain, No hand pain, No leg pain; foot pain Skin: No Rash; Lesions; No Jaundice, No Bruising; Other (Blisters) Objective Vitals Vital Signs Date Time Temp Pulse Resp B/P (MAP) Pulse Ox O2 Delivery O2 Flow Rate FiO2 11/27/24 09:42 141/75 11/27/24 09:00 98.0 73 18 99 98.0 11/27/24 08:10 Room Air* 0 21 Intake/Output Intake and Output 11/27/24 07:00 Intake Total 1190 ml Output Total 3000 ml Balance -1810 ml Intake Oral 1090 ml IV Total 100 ml Output Urine Total 3000 ml General Appearance: Alert, Cooperative, No acute distress HEENT: Atraumatic, PERRLA, EOMI, Mucous membr. moist/pink Neck: Supple Lungs: Clear to auscultation, Normal air movement Cardiovascular: Regular rate, Normal S1, Normal S2, No murmurs, Gallops, Rubs Abdomen: Normal bowel sounds, Soft Neuro: Cranial nerves 3-12 NL Psych/Mental Status: Mental status NL Medications Current Medications Medications Dose Ordered Sig/Rei Route Start Time Stop Time Status Last Admin Dose Admin Cefepime HCl 50 ml @ 12.5 mls/hr Q8HR IV 11/22/24 22:00 11/27/24 06:10 12.5 MLS/HR Acetaminophen/ Hydrocodone Bitart 1 tab Q4HP PRN PO 11/22/24 15:45 11/27/24 06:10 1 TAB Ondansetron HCl 4 mg Q4HP PRN IV 11/22/24 15:45 11/22/24 19:14 4 MG Enoxaparin Sodium 40 mg DAILY SC 11/23/24 10:00 11/27/24 09:43 40 MG Acetaminophen 650 mg Q6HP PRN PO 11/22/24 15:45 Morphine Sulfate 2 mg Q4HPRN PRN IV 11/22/24 15:45 11/24/24 08:56 2 MG Famotidine 20 mg Q12HR PO 11/23/24 22:00 11/27/24 09:42 20 MG Losartan Potassium 50 mg DAILY PO 11/24/24 10:00 11/27/24 09:42 50 MG Nifedipine 90 mg DAILY PO 11/24/24 10:00 11/27/24 09:42 90 MG Polyethylene Glycol 17 gm DAILYPRN PRN PO 11/24/24 18:15 Docusate Sodium 100 mg BID PO 11/24/24 22:00 11/27/24 09:40 100 MG Gabapentin 100 mg TID PO 11/25/24 22:00 11/27/24 06:10 100 MG Laboratory Results Laboratory Tests 11/27/24 06:35 Chemistry Test 11/27/24 06:35 Calcium Level 9.2 mg/dL (8.7-10.4) Urinalysis Test 11/22/24 13:50 Urine Color Yellow (Yellow) Urine Clarity Clear (Clear) Urine pH 6.5 (5.0-9.0) Urine Specific [place] 1.018 (1.001-1.035) Urine Protein Trace (Negative) H Urine Ketones Negative (Negative) Urine Blood Negative /uL (Negative) Urine Nitrite Negative (Negative) Urine Bilirubin Negative (Negative) Urine Urobilinogen 2 mg/dL (Negative) H Urine Leukocyte Esterase Negative /uL (Negative) Urine RBC 2 /hpf (0 - 3) Urine Microscopic WBC /HPF (0-3) Urine Squamous Epithelial Cells None seen /hpf (<5) Urine Bacteria None seen /hpf (None Seen) Urine Glucose Normal mg/dL (Normal) Microbiology Microbiology Date/Time Source Procedure Growth Status 11/25/24 11:01 Other Other Gram Stain - Final Resulted 11/25/24 11:01 Other Other Anaerobic Culture - Preliminary Resulted 11/25/24 11:01 Other Other Aerobic Culture - Preliminary Resulted 11/22/24 13:11 Blood Blood Culture - Final NO GROWTH AFTER 5 DAYS OF INCUBATION. Complete Labs and/or images reviewed: Labs reviewed by me Assessment/Plan Assessment/Plan Right heel ulcer Right foot and ankle cellulitis Right foot and ankle multiple blisters, burn injury - foot x-ray shows soft tissue edema and swelling - right lower extremity CT without contrast showed cellulitis, no CT findings suggestive of acute osteomyelitis - MRI right foot showed no evidence of osteomyelitis, no obvious fluid collection - podiatry consulted - status post right heel I&D to bone and I&D multiple abscesses - cultures Streptococcus B. - on IV antibiotics cefepime - physical therapy evaluation Chronic alcoholism Microcytic hypochromic anemia - patient counseled to stop drinking alcohol over 15 minutes Hypertensive heart disease with questionable heart failure - on nifedipine 90 mg and losartan 50 mg - echocardiogram showed LVEF 65%, normal RV function, normal atria, no severe valvular abnormalities noted DVT prophylaxis: Enoxaparin PUD prophylaxis: Famotidine This medical document was created using an electronic medical record system with [employer] direct computerized dictation system. Although this document has been carefully reviewed, there may still be some phonetic and typographical errors. These areas are purely typographical due to imperfections of the software programs, and do not reflect any compromise in the patient's medical care. Plan discussed with: Patient Date of Service: November 27, 2024 Billing Provider: BOBBY RIVERS MD Common Visit Codes: [id number] INP/OBS CARE(HIGH) BOBBY RIVERS MD November 27, 2024 13:35
[2024-11-27 17:00] VITALS: BP 128/66; PULSE 82; RESP 18; TEMP 98.3; O2SAT 99
[2024-11-27 20:00] VITALS: PULSE 76; RESP 18; O2SAT 99
[2024-11-27 21:00] VITALS: BP 111/49; PULSE 76; RESP 18; TEMP 99.8; O2SAT 99
[2024-11-28] VITALS (7 sets, daily range): BP systolic 103–142; BP diastolic 52–76; PULSE 70–89; RESP 18–20; TEMP 98.3–99.9; O2SAT 96–100
[2024-11-28 07:26] LABS: Potassium 4.9 mmol/L (3.5-5.1)
[2024-11-28 07:27] LABS: Anion Gap 7 (5-15); Calcium 9.5 mg/dL (8.7-10.4); Carbon Dioxide 29 mmol/L (20-31)
[2024-11-28 07:32] LABS: BUN/Creatinine Ratio 19.1 (10.0-20.0); Blood Urea Nitrogen 17 mg/dL (9-23)
[2024-11-28 07:40] LABS: Chloride 96 mmol/L (98-107); Glucose 152 mg/dL (74-106); Sodium 132 mmol/L (136-145)
[2024-11-28 07:49] LABS: Basophils # (auto) 0.1 10 ^3/uL (0-0.2); Basophils % (auto) 0.7 % (0.0-2.0); Eosinophils # (auto) 0.1 10 ^3/uL (0-0.8); Eosinophils % (auto) 1.3 % (0.0-7.0); Hematocrit 33.7 % (41.0-53.0); Hemoglobin 11.9 g/dL (13.5-17.5); Lymphocytes # (auto) 1.3 10 ^3/uL (0.4-5.4); Lymphocytes % (auto) 18.3 % (10.0-50.0); Mean Corpuscular Hemoglobin 35.6 pg (28.0-32.0); Mean Corpuscular Hgb Conc. 35.3 g/dL (32.0-36.0); Mean Corpuscular Volume 100.7 fL (80.0-100.0); Monocytes # (auto) 0.9 10 ^3/uL (0-1.3); Monocytes % (auto) 12.5 % (0.0-12.0); Neutrophils # (auto) 4.8 10 ^3/uL (1.6-8.6); Neutrophils % (auto) 67.2 % (37.0-80.0); Nucleated Red Blood Cells % 0.1 %; Platelet Count (auto) 270 10^3/uL (140-450); Red Blood Cells 3.35 10^6/uL (4.5-5.90); Red Cell Distribution Width 12.7 % (11.8-14.3); White Blood Cell 7.2 10^3/uL (4.4-10.8)
--- NOTE | 2024-11-28 16:29 | MEDREC ---
[facility] Intervention Section I [facility] Intervention: Review courses of therapy (PLEASE CONSIDER ADDING ANAEROBIC COVERAGE ) GHADA MARY PHARMACIST November 28, 2024 16:29
--- NOTE | 2024-11-28 18:38 | DVHPNRES ---
Progress Note Date Seen: November 28, 2024 Resident Creating Document: JHUdayJMARGARETTE Langley RESIDENT Medical Necessity Reason Pt with a Central, PICC or Fol: No Subjective Review of Systems Patient seen and examined with the bedside Postop dressing changed today Patient is ambulating with physical therapy with the help of a walker in postoperative shoe Today the patient was to be discharged but he reported that he did not have any transport and no place to go and he refused to go on a cab Objective vital signs Vital Sign Date Time Temp Pulse Resp B/P (MAP) Pulse Ox O2 Delivery O2 Flow Rate FiO2 11/28/24 16:33 99.2 89 18 142/72 (95) 96 99.2 11/28/24 08:05 Room Air* 0 21 Total Intake and Output 11/27/24 11/27/24 11/28/24 15:00 23:00 07:00 Intake Total 900 ml 750 ml Output Total 2200 ml Balance 900 ml -1450 ml medications Current Medications Medications Dose Ordered Sig/Rei Route Start Time Stop Time Status Last Admin Dose Admin Cefepime HCl 50 ml @ 12.5 mls/hr Q8HR IV 11/22/24 22:00 11/28/24 13:31 12.5 MLS/HR Acetaminophen/ Hydrocodone Bitart 1 tab Q4HP PRN PO 11/22/24 15:45 11/27/24 06:10 1 TAB Ondansetron HCl 4 mg Q4HP PRN IV 11/22/24 15:45 11/22/24 19:14 4 MG Enoxaparin Sodium 40 mg DAILY SC 11/23/24 10:00 11/28/24 09:24 40 MG Acetaminophen 650 mg Q6HP PRN PO 11/22/24 15:45 Morphine Sulfate 2 mg Q4HPRN PRN IV 11/22/24 15:45 11/27/24 22:40 2 MG Famotidine 20 mg Q12HR PO 11/23/24 22:00 11/28/24 09:23 20 MG Losartan Potassium 50 mg DAILY PO 11/24/24 10:00 11/28/24 09:24 50 MG Nifedipine 90 mg DAILY PO 11/24/24 10:00 11/28/24 09:23 90 MG Polyethylene Glycol 17 gm DAILYPRN PRN PO 11/24/24 18:15 Docusate Sodium 100 mg BID PO 11/24/24 22:00 11/28/24 09:23 100 MG Gabapentin 100 mg TID PO 11/25/24 22:00 11/28/24 13:30 100 MG Examination Constitutional: Patient is alert and oriented to time, place and person and does not appear to be in any acute distress Gen - no pallor, no icterus, no cyanosis, no clubbing, no LAD, no edema . Skin - Patients skin is warm and dry.. 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 no crackles , no wheezing, no stridor. cardiovascular - regular S1,S2 heard, no added sounds, no murmurs heard. peripheral pulses normal radial 2+, left pedal 2+. capillary refill normal <2 secs. GI - soft, nontender abdomen . no hepatospleenomegaly. Bowel sounds normoactive Neurological - Patient is A/O X 3 . Bilateral upper extremity strength 5/5, bilateral lower extremity strength 5/5, no facial droop, normal speech, no tremor, decreased sensation in the bilateral tip of the toes laboratory and microbiology Laboratory Tests 11/28/24 05:47 Test 11/28/24 05:47 Range/Units Serum Glucose 152 H 74-106 mg/dL Microbiology Date/Time Source Procedure Growth Status 11/25/24 11:01 Other Other Gram Stain - Final Resulted 11/25/24 11:01 Other Other Anaerobic Culture - Preliminary Resulted 11/25/24 11:01 Other Other Aerobic Culture - Preliminary Resulted 11/22/24 13:11 Blood Blood Culture - Final NO GROWTH AFTER 5 DAYS OF INCUBATION. Complete Problem List/Assessment/Plan Problem List/Assessment/Plan Right heel ulcer Right foot and ankle cellulitis Right foot and ankle multiple blisters, burn injury - foot x-ray shows soft tissue edema and swelling - right lower extremity CT without contrast showed cellulitis, no CT findings suggestive of acute osteomyelitis - MRI right foot showed no evidence of osteomyelitis, no obvious fluid collection - podiatry consulted - status post right heel I&D to bone and I&D multiple abscesses - cultures pending - on IV antibiotics cefepime and vancomycin - physical therapy evaluation to be done today - cultures from the foot wound grew Streptococcus group B and Bacteroides eggerthii, antibiotic changed to cefazolin Chronic alcoholism Microcytic hypochromic anemia ? Vitamin B12 deficiency - vitamin B12 levels pending - patient counseled to stop drinking alcohol over 15 minutes Hypertensive heart disease with questionable heart failure - on nifedipine 90 mg and losartan 50 mg - echocardiogram showed LVEF 65%, normal RV function, normal atria, no severe valvular abnormalities noted DVT prophylaxis: Enoxaparin PUD prophylaxis: Famotidine Goals of care discussed with the patient for over 23 minutes. Full code Plan discussed with Dr. Tejada Plan discussed with: Patient Dietary Evaluation Review Recommendations by RD: Dietary education by RD, Protein Supplementation Comments: 1) Initiate Marquise @ 1 pk qd 2) Initiate MVI @ 1 tb qd 3) Encourage optimal PO intake 4) Refer to outpatient RD for weight management 5) Follow-up with cardiology and podiatry 6) Follow-up with social contact worker r/t ETOH abuse 7) Continue to monitor I&O, labs, and skin integrity Expected Outcomes/Goals: 1) appetite and labs to improve 2) wounds to improve 3) f/u in 3-5 days Date of Service: November 28, 2024 Billing Provider: BOBBY TEJADA MD Common Visit Codes: [id number] INP/OBS CARE(HIGH) MARGARETTE AGUILAR RESIDENT November 28, 2024 18:38 BOBBY TEJADA MD November 29, 2024 07:29
[2024-11-28] MEDS: ceFAZolin 1GM/50ML 50 ML IV SCH (21:52)
[2024-11-29 01:00] VITALS: BP 122/71; PULSE 84; RESP 20; TEMP 99.4; O2SAT 99
[2024-11-29 05:00] VITALS: BP 124/72; PULSE 76; RESP 20; TEMP 98.2; O2SAT 100
[2024-11-29 06:17] LABS: Basophils # (auto) 0 10 ^3/uL (0-0.2); Eosinophils # (auto) 0.1 10 ^3/uL (0-0.8); Mean Corpuscular Hemoglobin 35.5 pg (28.0-32.0); Mean Corpuscular Hgb Conc. 35.7 g/dL (32.0-36.0); Monocytes # (auto) 0.9 10 ^3/uL (0-1.3); Nucleated Red Blood Cells % 0.1 %
[2024-11-29 06:23] LABS: Basophils % (auto) 0.7 % (0.0-2.0); Eosinophils % (auto) 1.1 % (0.0-7.0); Hematocrit 34.1 % (41.0-53.0); Hemoglobin 12.2 g/dL (13.5-17.5); Lymphocytes # (auto) 1.2 10 ^3/uL (0.4-5.4); Lymphocytes % (auto) 17.2 % (10.0-50.0); Mean Corpuscular Volume 99.6 fL (80.0-100.0); Monocytes % (auto) 12.1 % (0.0-12.0); Neutrophils # (auto) 4.9 10 ^3/uL (1.6-8.6); Neutrophils % (auto) 68.9 % (37.0-80.0); Platelet Count (auto) 256 10^3/uL (140-450); Red Blood Cells 3.42 10^6/uL (4.5-5.90); Red Cell Distribution Width 12.8 % (11.8-14.3); White Blood Cell 7.1 10^3/uL (4.4-10.8)
[2024-11-29 06:32] LABS: Potassium 4.1 mmol/L (3.5-5.1)
[2024-11-29 06:33] LABS: Anion Gap 4 (5-15); Calcium 8.8 mg/dL (8.7-10.4); Carbon Dioxide 28 mmol/L (20-31); Chloride 97 mmol/L (98-107); Sodium 129 mmol/L (136-145)
[2024-11-29 06:38] LABS: BUN/Creatinine Ratio 19.8 (10.0-20.0); Blood Urea Nitrogen 17 mg/dL (9-23); Glucose 193 mg/dL (74-106)
[2024-11-29 08:50] VITALS: BP 134/77; PULSE 76; RESP 20; TEMP 98.5; O2SAT 98
[2024-11-29] MEDS: SODIUM CHLORIDE 0.9% 500 ML IV ONE (10:15)
[2024-11-29] MEDS ORDERED: NIFE1TAB31 PO (11:52)
[2024-11-29] MEDS ORDERED: AUG875T PO (11:52)
[2024-11-29] MEDS ORDERED: GAB100C PO (11:52)
[2024-11-29] MEDS ORDERED: LOSA-534 PO (11:52)
[2024-11-29] MEDS ORDERED: POLY335015 PO (11:52)
[2024-11-29 12:30] VITALS: BP 125/77; PULSE 73; RESP 20; TEMP 98.8; O2SAT 98
[2024-11-29] MEDS ORDERED: HYDR-4902 PO (12:37)
[2024-11-29 16:39] VITALS: BP 118/70; PULSE 73; RESP 20; TEMP 98.8; O2SAT 97
[2024-11-29 16:47] VITALS: BP 118/66; PULSE 78; RESP 20; TEMP 98.8; O2SAT 98
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
== END 2024-11-29 18:49 | disposition home or self-care (01) | DRG 344 ==
LOC: ER 12:14 → OVERFLOW 16:32 → WEST WING 23:41
PROVIDERS: ADMIT Internal Medicine; ATTEND Internal Medicine
PROC: 0Y9K0ZZ Drainage of Right Ankle Region, Open Approach (ICD-10-PCS; 2024-11-23)
PROC: 0Y9M0ZZ Drainage of Right Foot, Open Approach (ICD-10-PCS; principal; 2024-11-23 12:03)
PROC: 0Y9K0ZZ Drainage of Right Ankle Region, Open Approach (ICD-10-PCS; 2024-11-25)
DX: M86.171 Other acute osteomyelitis, right ankle and foot (principal); L03.115 Cellulitis of right lower limb; I11.9 Hypertensive heart disease without heart failure; L97.419 Non-pressure chronic ulcer of right heel and midfoot with unspecified severity; R71.0 Precipitous drop in hematocrit; F10.229 Alcohol dependence with intoxication, unspecified; D72.819 Decreased white blood cell count, unspecified; F17.210 Nicotine dependence, cigarettes, uncomplicated; S90.821A Blister (nonthermal), right foot, initial encounter; S90.822A Blister (nonthermal), left foot, initial encounter; L02.611 Cutaneous abscess of right foot; Z97.0 Presence of artificial eye; I25.2 Old myocardial infarction; Z79.899 Other long term (current) drug therapy
CPT/HCPCS: 36415; 71045; 73590; 73630; 73700; 73718; 80048; 80053; 80202; 81001; 82565; 82607; 82746; 82962; 83036; 83605; 85025; 87040; 87070; 87075; 87076; 87205; 93306; 96361; 96365; 96375; 97163; G0378; J0692; J1100; J2003; J2250; J2405; J2704; J3490

== ENCOUNTER 2024-12-03 12:01 | Inpatient (IN) | payer MEDICAID ==
[~2024-12-03] VITALS: Ht 177.8 cm; Wt 104.3 kg
[~2024-12-03 12:01] MED LIST: AUG875T PO; GAB100C PO; HYDR-4902 PO; LOSA-534 PO; NIFE1TAB31 PO; POLY335015 PO
--- NOTE | 2024-12-03 14:29 | DVH ---
CLINICAL INDICATION: r/o osteomyelitis TECHNIQUE: XY R FOOT 2 VIEW XRAY Comparison: XY R FOOT 3 VIEW XRAY on DOS: 11/22/24 FINDINGS/IMPRESSION: : There is no evidence of acute fracture or dislocation. Small volume subcutaneous emphysema overlying the inferior aspect of the calcaneus. Diffuse subcutane ous soft-tissue edema and swelling. No definite radiographic findings of acute osteomyelitis.
[2024-12-03 14:39] LABS: Basophils # (auto) 0.1 10 ^3/uL (0-0.2); Basophils % (auto) 1.3 % (0.0-2.0); Eosinophils # (auto) 0.2 10 ^3/uL (0-0.8); Eosinophils % (auto) 2.1 % (0.0-7.0); Hematocrit 34.6 % (41.0-53.0); Hemoglobin 12.1 g/dL (13.5-17.5); Lymphocytes # (auto) 0.9 10 ^3/uL (0.4-5.4); Lymphocytes % (auto) 10.8 % (10.0-50.0); Mean Corpuscular Hemoglobin 34.6 pg (28.0-32.0); Mean Corpuscular Hgb Conc. 34.8 g/dL (32.0-36.0); Mean Corpuscular Volume 99.3 fL (80.0-100.0); Monocytes # (auto) 0.8 10 ^3/uL (0-1.3); Monocytes % (auto) 9.3 % (0.0-12.0); Neutrophils # (auto) 6.5 10 ^3/uL (1.6-8.6); Neutrophils % (auto) 76.5 % (37.0-80.0); Platelet Count (auto) 357 10^3/uL (140-450); Red Blood Cells 3.49 10^6/uL (4.5-5.90); Red Cell Distribution Width 12.4 % (11.8-14.3); White Blood Cell 8.5 10^3/uL (4.4-10.8)
[2024-12-03 14:48] LABS: Chloride 101 mmol/L (98-107); Potassium 5.1 mmol/L (3.5-5.1)
[2024-12-03 14:49] LABS: Anion Gap 3 (5-15); Carbon Dioxide 27 mmol/L (20-31)
[2024-12-03 14:50] LABS: Calcium 9.1 mg/dL (8.7-10.4)
[2024-12-03 14:52] LABS: Sodium 131 mmol/L (136-145)
[2024-12-03 14:54] LABS: BUN/Creatinine Ratio 14.8 (10.0-20.0); Blood Urea Nitrogen 20 mg/dL (9-23)
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
[2024-12-03 15:00] LABS: Glucose 188 mg/dL (74-106)
[2024-12-03] MEDS ORDERED: DOCUSATE SOD 100 MG CAP PO PRN (21:30)
[2024-12-03] MEDS ORDERED: ONDANSETRON HCL 4 MG/2 ML VIAL IV PRN (21:30)
[2024-12-03] MEDS ORDERED: ACETAMINOPHEN 325 MG TAB PO PRN (21:30)
[2024-12-03] MEDS: cefTRIAXone 1GM/50ML D5W 50 ML IV ONE (22:57)
[2024-12-03] MEDS: ASCORBIC ACID 500 MG TAB PO SCH (22:57)
[2024-12-03] MEDS: HYDROcodone-ACET 5/325MG TAB PO PRN (22:57)
[2024-12-03] MEDS: SODIUM CHLORIDE 0.9% 1,000 ML IV SCH (22:57)
[2024-12-03 23:01] VITALS: RESP 21; O2SAT 98
--- NOTE | 2024-12-03 23:03 | DVHHP2 ---
History of Present Illness Reason for Visit: Cellulitis of right foot History of Present Illness The patient is a 54-year-old male with past medical history of [place] presented to [facility] ED for evaluation of right lower extremity ulcer. Patient was recently admitted to this hospital for multiple blisters on his bilateral lower extremities. Patient currently has redness growing above with the boot with inflammation. Patient was seen and evaluated in the ED, laboratory data shows WBC 8.5, hemoglobin 12.1, hematocrit 34.6, platelets 357, sodium 131, potassium 5.1, BUN 20, creatinine 1.35, glucose 188, calcium 9.1. Right foot x- ray revealing small volume subcutaneous emphysema overlying the inferior aspect of the calcaneus, diffused subcutaneous soft tissue edema and swelling. Patient was started on IV antibiotic regimen Rocephin, please see medication orders section in the computer. On my assessment, patient denied chest pain, no headache, no dizziness, no shortness of breaths, no diaphoresis, no nausea, no vomiting, no fever, no chills. Patient was admitted for further evaluation and medical management. Past Medical History Myocardial infarction Past Surgical History Right eye surgery Family History Reviewed, noncontributory to the management of this case. Past Social History The patient lives at home, denies smoking, alcohol or illicit drugs abuse. Review of Systems Constitutional: Yes: Weakness; No: Fever, Chills, Sweats, Malaise, Other Eyes: Other (Right eye prosthesis); No: Pain, Vision change, Conjunctivae inflammation, Eyelid inflammation, Redness ENT: No: Ear pain, Ear discharge, Nose pain, Nose discharge, Nose congestion, Mouth pain, Mouth swelling, Throat pain, Throat swelling, Other Respiratory: No: Cough, Dry, Shortness of breath, SOB with excertion, Wheezing, Hemoptysis, Pleuritic Pain, Sputum, Wheezing, Other Cardiovascular: No: Chest Pain, Palpitations, Orthopnea, Paroxysmal Noc. Dyspnea, Edema, Lt Headedness, Other Gastrointestinal: No: Nausea, Vomiting, Abdominal Pain, Diarrhea, Constipation, Melena, Hematochezia, Other Genitourinary: No Dysuria, No Frequency, No Incontinence, No Hematuria, No Retention, No Other Musculoskeletal: other (Right foot pain with redness and inflammation); No: neck pain, shoulder pain, arm pain, back pain, hand pain, leg pain, foot pain Skin: Other (Right foot cellulitis); No: Rash, Lesions, Jaundice, Bruising Neurological: No: Weakness, Numbness, Incoordination, Change in speech, Confusion, Seizures, Other Allergies: Coded Allergies: NO KNOWN ALLERGIES (Unverified , 11/22/24) Medications Current Medications Medications Dose Ordered Sig/Rei Route Start Time Stop Time Status Last Admin Dose Admin Ceftriaxone Sodium 50 ml @ 100 mls/hr DAILY@09 IV 12/04/24 09:00 Sodium Chloride 1,000 ml @ 60 mls/hr [id number] IV 12/03/24 21:30 Acetaminophen/ Hydrocodone Bitart 1 tab Q4HP PRN PO 12/03/24 21:30 12/03/24 22:57 1 TAB Ondansetron HCl 4 mg Q4HP PRN IV 12/03/24 21:30 Docusate Sodium 100 mg BIDPRN PRN PO 12/03/24 21:30 Zinc Sulfate 220 mg DAILY PO 12/04/24 10:00 Ascorbic Acid 500 mg BID PO 12/03/24 22:00 12/03/24 22:57 500 MG Acetaminophen 650 mg Q6HP PRN PO 12/03/24 21:30 Hydralazine HCl 10 mg Q6HP PRN IV 12/03/24 21:30 Exam Vital Signs Vital Signs Date Time Temp Pulse Resp B/P (MAP) Pulse Ox O2 Delivery O2 Flow Rate FiO2 12/03/24 22:33 98.2 81 17 140/75 (96) 94 98.2 12/03/24 16:05 Room Air General Appearance: Alert, Oriented X3, Cooperative, No acute distress HEENT: Atraumatic, PERRLA, EOMI, Mucous membr. moist/pink Respiratory: Clear to auscultation, Normal air movement Cardiovascular: Regular rate, Normal S1, Normal S2, No murmurs Abdominal: Normal bowel sounds, Soft, No tenderness, No hepatospenomegaly, No masses Extremities: No clubbing, No cyanosis, No edema, Normal pulses, No tenderness/swelling Skin: No rashes, No breakdown, No significant lesion Neuro: Normal speech, Normal tone, Sensation intact, Cranial nerves 3-12 NL, Reflexes 2+, Other (Generalized weakness) Psych/Mental Status: Mental status NL, Mood NL Labs/Xrays Labs Test 12/03/24 14:14 12/03/24 12:33 Range/Units White Blood Count 8.5 4.4-10.8 10^3/uL Red Blood Count 3.49 L 4.5-5.90 10^6/uL Hemoglobin 12.1 L 13.5-17.5 g/dL Hematocrit 34.6 L 41.0-53.0 % Mean Corpuscular Volume 99.3 80.0-100.0 fL Mean Corpuscular Hemoglobin 34.6 H 28.0-32.0 pg Mean Corpuscular Hemoglobin Concent 34.8 32.0-36.0 g/dL Red Cell Distribution Width 12.4 11.8-14.3 % Platelet Count 357 140-450 10^3/uL Mean Platelet Volume 7.3 6.9-10.8 fL Neutrophils (%) (Auto) 76.5 37.0-80.0 % Lymphocytes (%) (Auto) 10.8 10.0-50.0 % Monocytes (%) (Auto) 9.3 0.0-12.0 % Eosinophils (%) (Auto) 2.1 0.0-7.0 % Basophils (%) (Auto) 1.3 0.0-2.0 % Neutrophils # (Auto) 6.5 1.6-8.6 10 ^3/uL Lymphocytes # (Auto) 0.9 0.4-5.4 10 ^3/uL Monocytes # (Auto) 0.8 0-1.3 10 ^3/uL Eosinophils # (Auto) 0.2 0-0.8 10 ^3/uL Basophils # (Auto) 0.1 0-0.2 10 ^3/uL Nucleated Red Blood Cells 0.0 % Sodium Level 131 L 136-145 mmol/L Potassium Level 5.1 3.5-5.1 mmol/L Chloride Level 101 98-107 mmol/L Carbon Dioxide Level 27 20-31 mmol/L Anion Gap 3 L 5-15 Blood Urea Nitrogen 20 9-23 mg/dL Creatinine 1.35 H 0.700-1.30 mg/dL Glomerular Filtration Rate Calc 62 >90 mL/min BUN/Creatinine Ratio 14.8 10.0-20.0 Serum Glucose 188 H 74-106 mg/dL Calcium Level 9.1 8.7-10.4 mg/dL POC Glucose 207 H 70-106 mg/dl PATIENT: FLORINA NICKERSON ACCT: [id number] UNIT: [id number] : 1970 LOC: ER ROOM / BED: / AGE / SEX: 54 / M ADM STATUS: REG ER SERVICE 1349 ORDERING PHYSICIAN: DAVID MILES MD PROCEDURE(s): RFOT2 - R FOOT 2 VIEW XRAY REASON: r/o osteomyelitis ORDER NUMBER(s): [id number], ACCESSION NUMBER(s): [id number] CLINICAL INDICATION: r/o osteomyelitis TECHNIQUE: XY R FOOT 2 VIEW XRAY Comparison: XY R FOOT 3 VIEW XRAY on DOS: 11/22/24 FINDINGS/IMPRESSION: There is no evidence of acute fracture or dislocation. Small volume subcutaneous emphysema overlying the inferior aspect of the calcaneus. Diffuse subcutaneous soft-tissue edema and swelling. No definite radiographic findings of acute osteomyelitis. Assessment/Plan Assessment/Plan Cellulitis of right foot Generalized weakness Plan 1. Admit to med surge unit 2. Breathing treatment 3. Pain control management 4. IV antibiotic management 5. Management of fluids and electrolytes 6. Consultation for hospitalist/wound care 7. Diagnostic test right foot x-ray 8. DVT prophylaxis-on Lovenox 9. Repeat labs CBC, CMP in a.m. 10. Home medication reviewed and reconciled 11. Continue with current medical management 12. Treatment plan discussed with patient and RN. Patient verbalized understanding. Plan discussed with: Patient, Other (RN) My Orders Orders - VICKY FOWLER DNP Procedure Category Date Status Time Ceftriaxone 1gm/50ml PHA 12/04/24 In Process D5w (Rocephin) 09:00 Allergies EDDIE 12/03/24 In Process 21:25 Code Status CODE 12/03/24 Transmitted 21:25 2 Gm Sodium Diet DIET 12/04/24 Transmitted Breakfast Sodium Chloride 0.9% PHA 12/03/24 In Process 21:30 Oxygen Per Hour RT 12/03/24 Transmitted 21:25 Hydrocodone-Acet PHA 12/03/24 In Process 5/325mg Tab ([place] 21:30 Ondansetron Hcl PHA 12/03/24 In Process (Zofran) 21:30 Docusate Sodium PHA 12/03/24 In Process Capsule (Colace 21:30 Zinc Sulfate PHA 12/04/24 In Process 10:00 Ascorbic Acid Tablet PHA 12/03/24 In Process (Vitamin C Tablet) 22:00 Complete Blood Count LAB 12/04/24 Verified 04:00 Comprehensive LAB 12/04/24 Verified Metabolic Panel 04:00 Condition: Serious EDDIE 12/03/24 In Process 21:25 Acetaminophen Tablet [facility] 12/03/24 In Process (Tylenol Tablet) 21:30 Bedrest With Bathroom EDDIE 12/03/24 In Process Privileg 21:25 Sequential EDDIE 12/03/24 In Process Compression Device Hydralazine Injection [facility] 12/03/24 In Process (Apresoline Inject 21:30 Problem List: (1) Cellulitis of right foot (2) Generalized weakness Date of Service: December 03, 2024 Billing Provider: VICKY FOWLER DNP Common Visit Codes: [id number] INP/OBS CARE (HIGH) VICKY FOWLER DNP December 03, 2024 23:03
[2024-12-03] MEDS ORDERED: NITROGLYCERIN 0.4 MG SL TAB SL PRN (23:15)
[2024-12-03] MEDS ORDERED: MORPHINE SULFATE INJ 2 MG/ml SYRG IV PRN (23:15)
[2024-12-04] VITALS (9 sets, daily range): BP systolic 136–171; BP diastolic 75–97; PULSE 74–88; RESP 17–20; TEMP 98.1–98.7; O2SAT 95–100
[2024-12-04 06:11] LABS: Basophils # (auto) 0.1 10 ^3/uL (0-0.2); Basophils % (auto) 0.6 % (0.0-2.0); Eosinophils # (auto) 0.2 10 ^3/uL (0-0.8); Eosinophils % (auto) 1.9 % (0.0-7.0); Hematocrit 32.8 % (41.0-53.0); Hemoglobin 11.7 g/dL (13.5-17.5); Lymphocytes % (auto) 11.5 % (10.0-50.0); Mean Corpuscular Hemoglobin 34.9 pg (28.0-32.0); Mean Corpuscular Hgb Conc. 35.6 g/dL (32.0-36.0); Mean Corpuscular Volume 97.8 fL (80.0-100.0); Monocytes # (auto) 0.7 10 ^3/uL (0-1.3); Neutrophils # (auto) 6.6 10 ^3/uL (1.6-8.6); Platelet Count (auto) 323 10^3/uL (140-450); Red Blood Cells 3.36 10^6/uL (4.5-5.90); Red Cell Distribution Width 12.9 % (11.8-14.3); White Blood Cell 8.4 10^3/uL (4.4-10.8)
[2024-12-04 06:27] LABS: Alanine Aminotransferase 23 U/L (7-40); Albumin 3.6 g/dL (3.2-4.8); Alkaline Phosphatase 96 U/L (46-116); Anion Gap 5 (5-15); Aspartate Aminotransferase 14 U/L (13-40); BUN/Creatinine Ratio 21.2 (10.0-20.0); Bilirubin, Total 0.6 mg/dL (0.2-1.0); Blood Urea Nitrogen 18 mg/dL (9-23); Calcium 8.9 mg/dL (8.7-10.4); Carbon Dioxide 25 mmol/L (20-31); Chloride 103 mmol/L (98-107); Potassium 4.1 mmol/L (3.5-5.1); Total Protein 6.7 g/dL (5.7-8.2)
[2024-12-04 06:29] LABS: Glucose 163 mg/dL (74-106); Sodium 133 mmol/L (136-145)
[2024-12-04] MEDS: cefTRIAXone 1GM/50ML D5W 50 ML IV SCH (10:02)
[2024-12-04] MEDS: ZINC SULFATE 220mg CAP or TAB PO SCH (10:03)
--- NOTE | 2024-12-04 18:34 | DVHPN2 ---
Subjective In bed resting Reviewed: H&P, Labs Changes from previous H/P or p: No Changes Eyes: No Pain, No Vision change, No Conjunctivae inflammation, No Eyelid inflammation; Other (Right eye prosthesis); No Redness ENT: No Ear pain, No Ear discharge, No Nose pain, No Nose discharge, No Nose congestion, No Mouth pain, No Mouth swelling, No Throat pain, No Throat swelling, No Other Cardiovascular: No Chest Pain, No Palpitations, No Orthopnea, No Paroxysmal Noc. Dyspnea, No Edema, No Lt Headedness, No Other Respiratory: No Cough, No Dry, No Shortness of breath, No SOB with excertion, No Wheezing, No Hemoptysis, No Pleuritic Pain, No Sputum, No Other Gastrointestinal: No Nausea, No Vomiting, No Abdominal Pain, No Diarrhea, No Constipation, No Melena, No Hematochezia, No Other Genitourinary: No Dysuria, No Frequency, No Incontinence, No Hematuria, No Retention, No Other Musculoskeletal: other (Right foot pain with redness and inflammation); No neck pain, No shoulder pain, No arm pain, No back pain, No hand pain, No leg pain, No foot pain Skin: No Rash, No Lesions, No Jaundice, No Bruising; Other (Right foot cellulitis) Objective Vitals Vital Signs Date Time Temp Pulse Resp B/P (MAP) Pulse Ox O2 Delivery O2 Flow Rate FiO2 12/04/24 16:46 98.4 75 20 141/75 (97) 95 98.4 12/04/24 08:11 Room Air* 0 21 Intake/Output Intake and Output 12/04/24 07:00 Intake Total 0 ml Balance 0 ml Intake Oral 0 ml # Voids 1 General Appearance: Alert, Oriented X3 Lungs: Clear to auscultation Cardiovascular: Regular rate, Normal S1, Normal S2 Medications Current Medications Medications Dose Ordered Sig/Rei Route Start Time Stop Time Status Last Admin Dose Admin Ceftriaxone Sodium 50 ml @ 100 mls/hr DAILY@09 IV 12/04/24 09:00 12/04/24 10:02 100 MLS/HR Sodium Chloride 1,000 ml @ 60 mls/hr [id number] IV 12/03/24 21:30 Acetaminophen/ Hydrocodone Bitart 1 tab Q4HP PRN PO 12/03/24 21:30 12/04/24 10:03 1 TAB Ondansetron HCl 4 mg Q4HP PRN IV 12/03/24 21:30 Docusate Sodium 100 mg BIDPRN PRN PO 12/03/24 21:30 Zinc Sulfate 220 mg DAILY PO 12/04/24 10:00 12/04/24 10:03 220 MG Ascorbic Acid 500 mg BID PO 12/03/24 22:00 12/04/24 10:03 500 MG Acetaminophen 650 mg Q6HP PRN PO 12/03/24 21:30 Hydralazine HCl 10 mg Q6HP PRN IV 12/03/24 21:30 Nitroglycerin 0.4 mg Q5MINP PRN SL 12/03/24 23:15 Morphine Sulfate 2 mg Q30M PRN IV 12/03/24 23:15 Laboratory Results Laboratory Tests 12/04/24 05:34 Chemistry Test 12/04/24 05:34 Albumin 3.6 g/dL (3.2-4.8) Calcium Level 8.9 mg/dL (8.7-10.4) Total Protein 6.7 g/dL (5.7-8.2) LFT Test 12/04/24 05:34 Alanine Aminotransferase (ALT) 23 U/L (7-40) Alkaline Phosphatase 96 U/L (46-116) Aspartate Amino Transferase (AST) 14 U/L (13-40) Total Bilirubin 0.6 mg/dL (0.2-1.0) Microbiology Microbiology Date/Time Source Procedure Growth Status 12/04/24 01:25 Nose MRSA Screen - Final Complete Assessment/Plan Assessment/Plan Cellulitis of right foot Generalized weakness Acute kidney injury due to VMD IVF Continue IV abx wound care Plan discussed with: Patient My Orders Orders - SHELLY PDARON MD Procedure Category Date Status Time Apply: EDDIE 12/04/24 In Process 11:03 Date of Service: Dec 04, 2024 Billing Provider: SHELLY PADRON MD Common Visit Codes: [id number] INP/OBS CARE(HIGH) SHELLY PADRON MD Dec 04, 2024 18:34
[2024-12-04] MEDS: hydrALAZINE HCL 20 MG/ML VL IV PRN (23:10)
[2024-12-05] VITALS (10 sets, daily range): BP systolic 113–162; BP diastolic 64–91; PULSE 71–80; RESP 17–19; TEMP 97–99; O2SAT 95–100
[2024-12-05 11:59] LABS: Hepatitis B Surface Antigen Negative (Negative); Hepatitis C Antibody Negative (Negative)
--- NOTE | 2024-12-05 15:20 | DVHINCON2 ---
Date Seen: Dec 05, 2024 Reason for Consultation Right foot wounds History of Present Illness The patient is a 54-year-old male with past medical history of [place] presented to [facility] ED for evaluation of right lower extremity ulcer. Patient was recently admitted to this hospital for multiple blisters on his bilateral lower extremities. Patient currently has redness growing above with the boot with inflammation. Patient was seen and evaluated in the ED, laboratory data shows WBC 8.5, hemoglobin 12.1, hematocrit 34.6, platelets 357, sodium 131, potassium 5.1, BUN 20, creatinine 1.35, glucose 188, calcium 9.1. Right foot x- ray revealing small volume subcutaneous emphysema overlying the inferior aspect of the calcaneus, diffused subcutaneous soft tissue edema and swelling. Patient was started on IV antibiotic regimen Rocephin, please see medication orders section in the computer. On my assessment, patient denied chest pain, no headache, no dizziness, no shortness of breaths, no diaphoresis, no nausea, no vomiting, no fever, no chills. Patient was admitted for further evaluation and medical management. Past Medical History See H&P Past Surgical History See H&P Family History: Diabetes mellitus GRANDMA UNCLE Allergies: Coded Allergies: NO KNOWN ALLERGIES (Unverified , 11/22/24) Home Meds Active Scripts Hydrocodone-Acetaminophen (Hydrocodone Bitartrate/AC 5-325 mg) 1 Tab Tab, 1 TAB PO Q4HP PRN, #30 TAB Prov:BOBBY RIVERS MD 11/29/24 Amoxicillin & Pot Clavulanate (AUGMENTIN TABLET) 875 Mg Tb, 875 MG PO BID for 7 Days, #14 TAB 0 Refills Prov:MARGARETTE AGUILAR 11/29/24 Polyethylene Glycol 3350 (Miralax) 17 Gm Pow, 17 GM PO DAILY PRN for 20 Days, #20 POW 0 Refills Prov:MARGARETTE AGUILAR 11/29/24 Nifedipine (Nifedipine Er) 30 Mg Tab, 90 MG PO DAILY for 28 Days, #84 TAB Prov:MARGARETTE AGUILAR 11/29/24 Losartan Potassium (Losartan Potassium) 50 Mg Tab, 50 MG PO DAILY for 28 Days, #28 TAB Prov:MARGARETTE AGUILAR 11/29/24 Gabapentin (Gabapentin) 100 Mg Cap, 100 MG PO TID for 28 Days, #84 CAP Prov:MARGARETTE AGUILAR RESIDENT 11/29/24 Vital Signs Vital Signs Date Time Temp Pulse Resp B/P (MAP) Pulse Ox O2 Delivery O2 Flow Rate FiO2 12/05/24 12:30 98.2 72 18 113/70 (84) 98 98.2 12/05/24 08:00 Room Air* 0 21 Physical Exam Dermatological: Skin is dry with mild erythema and some maceration around the wound site No gross deformities noted Mild non-pitting edema present bilaterally Multiple ulcerations in the degloving of the right foot and leg Vascular: Dorsalis pedis and posterior tibial pulses are 1+ bilaterally Capillary refill is under 2 seconds Skin temperature is warm bilaterally Neurologic: Protective sensation is absent on the plantar forefoot bilaterally Monofilament testing reveals decreased sensation in multiple plantar sites Musculoskeletal: Range of motion at the ankle and MTP joints is within normal limits. Strength is 5/5 in all tested muscle groups. Gait is antalgic due to offloading of the affected limb. Labs/Diagnostic Data Labs Test 12/04/24 05:34 12/03/24 12:33 Range/Units White Blood Count 8.4 4.4-10.8 10^3/uL Red Blood Count 3.36 L 4.5-5.90 10^6/uL Hemoglobin 11.7 L 13.5-17.5 g/dL Hematocrit 32.8 L 41.0-53.0 % Mean Corpuscular Volume 97.8 80.0-100.0 fL Mean Corpuscular Hemoglobin 34.9 H 28.0-32.0 pg Mean Corpuscular Hemoglobin Concent 35.6 32.0-36.0 g/dL Red Cell Distribution Width 12.9 11.8-14.3 % Platelet Count 323 140-450 10^3/uL Mean Platelet Volume 7.1 6.9-10.8 fL Neutrophils (%) (Auto) 78.0 37.0-80.0 % Lymphocytes (%) (Auto) 11.5 10.0-50.0 % Monocytes (%) (Auto) 8.0 0.0-12.0 % Eosinophils (%) (Auto) 1.9 0.0-7.0 % Basophils (%) (Auto) 0.6 0.0-2.0 % Neutrophils # (Auto) 6.6 1.6-8.6 10 ^3/uL Lymphocytes # (Auto) 1.0 0.4-5.4 10 ^3/uL Monocytes # (Auto) 0.7 0-1.3 10 ^3/uL Eosinophils # (Auto) 0.2 0-0.8 10 ^3/uL Basophils # (Auto) 0.1 0-0.2 10 ^3/uL Nucleated Red Blood Cells 0.0 % Sodium Level 133 L 136-145 mmol/L Potassium Level 4.1 3.5-5.1 mmol/L Chloride Level 103 98-107 mmol/L Carbon Dioxide Level 25 20-31 mmol/L Anion Gap 5 5-15 Blood Urea Nitrogen 18 9-23 mg/dL Creatinine 0.85 0.700-1.30 mg/dL Glomerular Filtration Rate Calc 103 >90 mL/min BUN/Creatinine Ratio 21.2 H 10.0-20.0 Serum Glucose 163 H 74-106 mg/dL Calcium Level 8.9 8.7-10.4 mg/dL Total Bilirubin 0.6 0.2-1.0 mg/dL Aspartate Amino Transferase (AST) 14 13-40 U/L Alanine Aminotransferase (ALT) 23 7-40 U/L Alkaline Phosphatase 96 46-116 U/L Total Protein 6.7 5.7-8.2 g/dL Albumin 3.6 3.2-4.8 g/dL Hepatitis B Surface Antigen Negative Negative Hepatitis C Antibody Negative Negative POC Glucose 207 H 70-106 mg/dl Microbiology Date/Time Source Procedure Growth Status 12/04/24 01:25 Nose MRSA Screen - Final Complete Problems(with codes): (1) Cellulitis of right lower extremity (2) Alcohol intoxication (3) Alcohol abuse (4) Hyperglycemia (5) Leukopenia (6) Chest pain (7) Eloped from emergency department (8) Post-op pain (9) Blister of foot, left (10) Blister of foot, right (11) Cellulitis (12) Generalized weakness (13) Cellulitis of right foot Plan/Recommendation ASSESSMENT: Patient is a 54 year year old seen on the floor for a worsening ulcer PLAN: - The patients chart was reviewed, clinical findings were discussed with the patient, the etiologies of the conditions were discussed in detail, and a treatment plan was agreed to at this time, with both oral and written instructions provided. - reviewed advanced imaging - discussed that the wounds are superficial and appear to be healing appropriately - discussed that patient should have the dressings changed every other day - dress with Betadine gauze Kerlix Surjit - should follow up with me this week - needs home health care to change dressings if not being changed - no surgical intervention recommended at this point All questions were answered and concerns addressed to the patient's satisfaction. The patient was given the phone number to the clinic and was told how to make contact with the clinic should any concerns or questions arise. Patient understands that if any questions or concerns arise prior to the next appointment, we should be contacted immediately. FOLLOW-UP: Continue to follow while inpatient Plan discussed with: Patient Date of Service: Dec 05, 2024 Billing Provider: RADHA MANNING DPM Common Visit Codes: CONSULT ONLY Consultation Codes: [id number] CONSULT <80MIN RADHA MANNING DPM Dec 05, 2024 15:20
--- NOTE | 2024-12-05 18:36 | DVHPN2 ---
Subjective Right foot wound Reviewed: H&P, Labs Changes from previous H/P or p: Changes Eyes: No Pain, No Vision change, No Conjunctivae inflammation, No Eyelid inflammation; Other (Right eye prosthesis); No Redness ENT: No Ear pain, No Ear discharge, No Nose pain, No Nose discharge, No Nose congestion, No Mouth pain, No Mouth swelling, No Throat pain, No Throat swelling, No Other Cardiovascular: No Chest Pain, No Palpitations, No Orthopnea, No Paroxysmal Noc. Dyspnea, No Edema, No Lt Headedness, No Other Respiratory: No Cough, No Dry, No Shortness of breath, No SOB with excertion, No Wheezing, No Hemoptysis, No Pleuritic Pain, No Sputum, No Other Gastrointestinal: No Nausea, No Vomiting, No Abdominal Pain, No Diarrhea, No Constipation, No Melena, No Hematochezia, No Other Genitourinary: No Dysuria, No Frequency, No Incontinence, No Hematuria, No Retention, No Other Musculoskeletal: other (Right foot pain with redness and inflammation); No neck pain, No shoulder pain, No arm pain, No back pain, No hand pain, No leg pain, No foot pain Skin: No Rash, No Lesions, No Jaundice, No Bruising; Other (Right foot cellulitis) Objective Vitals Vital Signs Date Time Temp Pulse Resp B/P (MAP) Pulse Ox O2 Delivery O2 Flow Rate FiO2 12/05/24 16:47 98.7 74 18 147/86 (106) 97 98.7 12/05/24 08:00 Room Air* 0 21 Intake/Output Intake and Output 12/05/24 07:00 Intake Total 2330 ml Output Total 1702 ml Balance 628 ml Intake Oral 2330 ml Output Urine Total 1700 ml Stool Total 2 ml # Voids 3 General Appearance: Alert, Oriented X3 Lungs: Clear to auscultation Cardiovascular: Regular rate, Normal S1, Normal S2 Abdomen: Normal bowel sounds, Soft, No tenderness Extremities: No edema Medications Current Medications Medications Dose Ordered Sig/Rei Route Start Time Stop Time Status Last Admin Dose Admin Ceftriaxone Sodium 50 ml @ 100 mls/hr DAILY@09 IV 12/04/24 09:00 12/05/24 09:58 100 MLS/HR Sodium Chloride 1,000 ml @ 60 mls/hr [id number] IV 12/03/24 21:30 12/05/24 06:47 60 MLS/HR Acetaminophen/ Hydrocodone Bitart 1 tab Q4HP PRN PO 12/03/24 21:30 12/05/24 09:59 1 TAB Ondansetron HCl 4 mg Q4HP PRN IV 12/03/24 21:30 Docusate Sodium 100 mg BIDPRN PRN PO 12/03/24 21:30 Zinc Sulfate 220 mg DAILY PO 12/04/24 10:00 12/05/24 09:59 220 MG Ascorbic Acid 500 mg BID PO 12/03/24 22:00 12/05/24 09:59 500 MG Acetaminophen 650 mg Q6HP PRN PO 12/03/24 21:30 Hydralazine HCl 10 mg Q6HP PRN IV 12/03/24 21:30 12/05/24 05:50 10 MG Nitroglycerin 0.4 mg Q5MINP PRN SL 12/03/24 23:15 Morphine Sulfate 2 mg Q30M PRN IV 12/03/24 23:15 Laboratory Results Laboratory Tests 12/04/24 05:34 Microbiology Microbiology Date/Time Source Procedure Growth Status 12/04/24 01:25 Nose MRSA Screen - Final Complete Assessment/Plan Assessment/Plan Cellulitis right foot Bilateral feet wounds GAETANO due to vasomotor nephropathy Alcoholism HTN Hypertensive heart disease Hyponatremia PLAN: IV antibiotics, Rocephin Continue IV fluids: NS Wound care Podiatry consult Vit C Zinc Pain control [place] Full code Advanced directives discussed x 18 minutes Plan discussed with: Patient My Orders Orders - MOON GUTIERREZ MD Procedure Category Date Status Time *Podiatry Consult CONS 12/05/24 Transmitted Kelly(Dvmg) 14:31 Date of Service: Dec 05, 2024 Billing Provider: MOON GUTIERREZ MD Common Visit Codes: [id number] INP/OBS CARE(HIGH) Secondary Visit Codes: [id number] CARE PLAN 30 MINUTES MOON GUTIERREZ MD Dec 05, 2024 18:36
[2024-12-06] VITALS (7 sets, daily range): BP systolic 117–138; BP diastolic 70–86; PULSE 67–82; RESP 17–20; TEMP 97.7–98.7; O2SAT 95–99
[2024-12-06 05:44] LABS: Anion Gap 7 (5-15); Calcium 8.9 mg/dL (8.7-10.4); Carbon Dioxide 28 mmol/L (20-31); Potassium 4.3 mmol/L (3.5-5.1)
[2024-12-06 05:45] LABS: Chloride 96 mmol/L (98-107); Sodium 131 mmol/L (136-145)
[2024-12-06 05:50] LABS: BUN/Creatinine Ratio 12.9 (10.0-20.0); Blood Urea Nitrogen 11 mg/dL (9-23)
[2024-12-06 05:51] LABS: Glucose 153 mg/dL (74-106); Magnesium 1.6 mg/dL (1.6-2.6)
--- NOTE | 2024-12-06 10:33 | DVHPN2 ---
Subjective Right foot wound doing well no new complaints Reviewed: H&P, Labs Changes from previous H/P or p: Changes Eyes: No Pain, No Vision change, No Conjunctivae inflammation, No Eyelid inflammation; Other (Right eye prosthesis); No Redness ENT: No Ear pain, No Ear discharge, No Nose pain, No Nose discharge, No Nose congestion, No Mouth pain, No Mouth swelling, No Throat pain, No Throat swelling, No Other Cardiovascular: No Chest Pain, No Palpitations, No Orthopnea, No Paroxysmal Noc. Dyspnea, No Edema, No Lt Headedness, No Other Respiratory: No Cough, No Dry, No Shortness of breath, No SOB with excertion, No Wheezing, No Hemoptysis, No Pleuritic Pain, No Sputum, No Other Gastrointestinal: No Nausea, No Vomiting, No Abdominal Pain, No Diarrhea, No Constipation, No Melena, No Hematochezia, No Other Genitourinary: No Dysuria, No Frequency, No Incontinence, No Hematuria, No Retention, No Other Musculoskeletal: other (Right foot pain with redness and inflammation); No neck pain, No shoulder pain, No arm pain, No back pain, No hand pain, No leg pain, No foot pain Skin: No Rash, No Lesions, No Jaundice, No Bruising; Other (Right foot cellulitis) Objective Vitals Vital Signs Date Time Temp Pulse Resp B/P (MAP) Pulse Ox O2 Delivery O2 Flow Rate FiO2 12/06/24 08:50 97.8 71 19 134/86 (102) 99 97.8 12/05/24 20:00 Room Air* 0 21 Intake/Output Intake and Output 12/06/24 07:00 Intake Total 1650 ml Output Total 2100 ml Balance -450 ml Intake Oral 1650 ml Output Urine Total 2100 ml # Bowel Movements 2 General Appearance: Alert, Oriented X3 Lungs: Clear to auscultation Cardiovascular: Regular rate, Normal S1, Normal S2 Abdomen: Normal bowel sounds, Soft, No tenderness Extremities: No edema Medications Current Medications Medications Dose Ordered Sig/Rei Route Start Time Stop Time Status Last Admin Dose Admin Ceftriaxone Sodium 50 ml @ 100 mls/hr DAILY@09 IV 12/04/24 09:00 12/06/24 09:09 100 MLS/HR Sodium Chloride 1,000 ml @ 60 mls/hr [id number] IV 12/03/24 21:30 12/05/24 23:30 60 MLS/HR Acetaminophen/ Hydrocodone Bitart 1 tab Q4HP PRN PO 12/03/24 21:30 12/06/24 09:09 1 TAB Ondansetron HCl 4 mg Q4HP PRN IV 12/03/24 21:30 Docusate Sodium 100 mg BIDPRN PRN PO 12/03/24 21:30 Zinc Sulfate 220 mg DAILY PO 12/04/24 10:00 12/06/24 09:09 220 MG Ascorbic Acid 500 mg BID PO 12/03/24 22:00 12/06/24 09:09 500 MG Acetaminophen 650 mg Q6HP PRN PO 12/03/24 21:30 Hydralazine HCl 10 mg Q6HP PRN IV 12/03/24 21:30 12/05/24 05:50 10 MG Nitroglycerin 0.4 mg Q5MINP PRN SL 12/03/24 23:15 Morphine Sulfate 2 mg Q30M PRN IV 12/03/24 23:15 Laboratory Results Laboratory Tests 12/04/24 05:34 12/06/24 04:52 Chemistry Test 12/06/24 04:52 Calcium Level 8.9 mg/dL (8.7-10.4) Magnesium Level 1.6 mg/dL (1.6-2.6) Microbiology Microbiology Date/Time Source Procedure Growth Status 12/04/24 01:25 Nose MRSA Screen - Final Complete Assessment/Plan Assessment/Plan Cellulitis right foot Bilateral feet wounds GAETANO due to vasomotor nephropathy Alcoholism HTN Hypertensive heart disease Hyponatremia PLAN: IV antibiotics, Rocephin Continue IV fluids: NS Wound care Podiatry consult Vit C Zinc Pain control [place] Full code Advanced directives discussed x 18 minutes 12/06/2024: Continue IV antibiotics Continue the current management with the wound care Plan is to send the patient home on oral antibiotics in 1-2 days Plan discussed with: Patient My Orders Orders - MOON GUTIERREZ MD Procedure Category Date Status Time *Podiatry Consult CONS 12/05/24 Transmitted [facility]) 14:31 Date of Service: Dec 06, 2024 Billing Provider: MOON GUTIERREZ MD Common Visit Codes: [id number] INP/OBS CARE(HIGH) MOON GUTIERREZ MD Dec 06, 2024 10:33
[2024-12-06] MEDS: MAGNESIUM OXIDE 400 MG TAB PO ONE (16:24)
[2024-12-06] MEDS: MAGNESIUM OXIDE 400 MG TAB PO SCH (20:43)
[2024-12-07] VITALS (8 sets, daily range): BP systolic 112–162; BP diastolic 63–88; PULSE 60–89; RESP 16–20; TEMP 97.8–98.7; O2SAT 97–100
--- NOTE | 2024-12-07 19:50 | DVHPN2 ---
Subjective Right foot wound doing well no new complaints Reviewed: H&P, Labs Changes from previous H/P or p: Changes Eyes: No Pain, No Vision change, No Conjunctivae inflammation, No Eyelid inflammation; Other (Right eye prosthesis); No Redness ENT: No Ear pain, No Ear discharge, No Nose pain, No Nose discharge, No Nose congestion, No Mouth pain, No Mouth swelling, No Throat pain, No Throat swelling, No Other Cardiovascular: No Chest Pain, No Palpitations, No Orthopnea, No Paroxysmal Noc. Dyspnea, No Edema, No Lt Headedness, No Other Respiratory: No Cough, No Dry, No Shortness of breath, No SOB with excertion, No Wheezing, No Hemoptysis, No Pleuritic Pain, No Sputum, No Other Gastrointestinal: No Nausea, No Vomiting, No Abdominal Pain, No Diarrhea, No Constipation, No Melena, No Hematochezia, No Other Genitourinary: No Dysuria, No Frequency, No Incontinence, No Hematuria, No Retention, No Other Musculoskeletal: other (Right foot pain with redness and inflammation); No neck pain, No shoulder pain, No arm pain, No back pain, No hand pain, No leg pain, No foot pain Skin: No Rash, No Lesions, No Jaundice, No Bruising; Other (Right foot cellulitis) Objective Vitals Vital Signs Date Time Temp Pulse Resp B/P (MAP) Pulse Ox O2 Delivery O2 Flow Rate FiO2 12/07/24 17:00 97.8 74 18 117/86 (96) 98 97.8 12/07/24 07:30 Room Air* 0 21 Intake/Output Intake and Output 12/07/24 07:00 Intake Total 450 ml Output Total 1200 ml Balance -750 ml Intake Oral 400 ml IV Total 50 ml Output Urine Total 1200 ml # Bowel Movements 2 General Appearance: Alert, Oriented X3 Lungs: Clear to auscultation Cardiovascular: Regular rate, Normal S1, Normal S2 Abdomen: Normal bowel sounds, Soft, No tenderness Extremities: No edema Medications Current Medications Medications Dose Ordered Sig/Rei Route Start Time Stop Time Status Last Admin Dose Admin Ceftriaxone Sodium 50 ml @ 100 mls/hr DAILY@09 IV 12/04/24 09:00 12/07/24 08:49 100 MLS/HR Acetaminophen/ Hydrocodone Bitart 1 tab Q4HP PRN PO 12/03/24 21:30 12/07/24 08:49 1 TAB Ondansetron HCl 4 mg Q4HP PRN IV 12/03/24 21:30 Docusate Sodium 100 mg BIDPRN PRN PO 12/03/24 21:30 Zinc Sulfate 220 mg DAILY PO 12/04/24 10:00 12/07/24 08:49 220 MG Ascorbic Acid 500 mg BID PO 12/03/24 22:00 12/07/24 08:50 500 MG Acetaminophen 650 mg Q6HP PRN PO 12/03/24 21:30 Hydralazine HCl 10 mg Q6HP PRN IV 12/03/24 21:30 12/07/24 02:45 10 MG Nitroglycerin 0.4 mg Q5MINP PRN SL 12/03/24 23:15 Morphine Sulfate 2 mg Q30M PRN IV 12/03/24 23:15 Magnesium Oxide 400 mg BID PO 12/06/24 22:00 12/07/24 08:49 400 MG Laboratory Results Laboratory Tests 12/04/24 05:34 12/06/24 04:52 Microbiology Microbiology Date/Time Source Procedure Growth Status 12/04/24 01:25 Nose MRSA Screen - Final Complete Assessment/Plan Assessment/Plan Cellulitis right foot Bilateral feet wounds GAETANO due to vasomotor nephropathy Alcoholism HTN Hypertensive heart disease Hyponatremia PLAN: IV antibiotics, Rocephin Continue IV fluids: NS Wound care Podiatry consult Vit C Zinc Pain control [place] Full code Advanced directives discussed x 18 minutes 12/06/2024: Continue IV antibiotics Continue the current management with the wound care Plan is to send the patient home on oral antibiotics in 1-2 days 12/07/24: COntinue IV antibiotics DC planning Plan discussed with: Patient Date of Service: Dec 07, 2024 Billing Provider: MOON GUTIERREZ MD Common Visit Codes: [id number] INP/OBS CARE(HIGH) MOON GUTIERREZ MD Dec 07, 2024 19:49
[2024-12-08 01:00] VITALS: BP 156/87; PULSE 63; RESP 18; TEMP 97.6; O2SAT 98
[2024-12-08 05:00] VITALS: BP 138/86; PULSE 77; RESP 16; TEMP 97.8; O2SAT 97
[2024-12-08 09:00] VITALS: BP 153/81; PULSE 73; RESP 20; TEMP 98; O2SAT 100
--- NOTE | 2024-12-08 10:44 | DVHPN2 ---
Subjective Right foot wound doing well no new complaints Reviewed: H&P, Labs Changes from previous H/P or p: Changes Eyes: No Pain, No Vision change, No Conjunctivae inflammation, No Eyelid inflammation; Other (Right eye prosthesis); No Redness ENT: No Ear pain, No Ear discharge, No Nose pain, No Nose discharge, No Nose congestion, No Mouth pain, No Mouth swelling, No Throat pain, No Throat swelling, No Other Cardiovascular: No Chest Pain, No Palpitations, No Orthopnea, No Paroxysmal Noc. Dyspnea, No Edema, No Lt Headedness, No Other Respiratory: No Cough, No Dry, No Shortness of breath, No SOB with excertion, No Wheezing, No Hemoptysis, No Pleuritic Pain, No Sputum, No Other Gastrointestinal: No Nausea, No Vomiting, No Abdominal Pain, No Diarrhea, No Constipation, No Melena, No Hematochezia, No Other Genitourinary: No Dysuria, No Frequency, No Incontinence, No Hematuria, No Retention, No Other Musculoskeletal: other (Right foot pain with redness and inflammation); No neck pain, No shoulder pain, No arm pain, No back pain, No hand pain, No leg pain, No foot pain Skin: No Rash, No Lesions, No Jaundice, No Bruising; Other (Right foot cellulitis) Objective Vitals Vital Signs Date Time Temp Pulse Resp B/P (MAP) Pulse Ox O2 Delivery O2 Flow Rate FiO2 12/08/24 09:00 98.0 73 20 153/81 (105) 100 98.0 12/08/24 08:00 Room Air* 0 21 Intake/Output Intake and Output 12/08/24 07:00 Intake Total 1800 ml Output Total 1075 ml Balance 725 ml Intake Oral 1750 ml IV Total 50 ml Output Urine Total 1075 ml General Appearance: Alert, Oriented X3 Lungs: Clear to auscultation Cardiovascular: Regular rate, Normal S1, Normal S2 Abdomen: Normal bowel sounds, Soft, No tenderness Extremities: No edema Medications Current Medications Medications Dose Ordered Sig/Rei Route Start Time Stop Time Status Last Admin Dose Admin Ceftriaxone Sodium 50 ml @ 100 mls/hr DAILY@09 IV 12/04/24 09:00 12/08/24 09:06 100 MLS/HR Acetaminophen/ Hydrocodone Bitart 1 tab Q4HP PRN PO 12/03/24 21:30 12/07/24 21:33 1 TAB Ondansetron HCl 4 mg Q4HP PRN IV 12/03/24 21:30 Docusate Sodium 100 mg BIDPRN PRN PO 12/03/24 21:30 Zinc Sulfate 220 mg DAILY PO 12/04/24 10:00 12/08/24 09:06 220 MG Ascorbic Acid 500 mg BID PO 12/03/24 22:00 12/08/24 09:06 500 MG Acetaminophen 650 mg Q6HP PRN PO 12/03/24 21:30 Hydralazine HCl 10 mg Q6HP PRN IV 12/03/24 21:30 12/07/24 02:45 10 MG Nitroglycerin 0.4 mg Q5MINP PRN SL 12/03/24 23:15 Morphine Sulfate 2 mg Q30M PRN IV 12/03/24 23:15 Magnesium Oxide 400 mg BID PO 12/06/24 22:00 12/08/24 09:06 400 MG Laboratory Results Laboratory Tests 12/04/24 05:34 12/06/24 04:52 Microbiology Microbiology Date/Time Source Procedure Growth Status 12/04/24 01:25 Nose MRSA Screen - Final Complete Assessment/Plan Assessment/Plan Cellulitis right foot Bilateral feet wounds GAETANO due to vasomotor nephropathy Alcoholism HTN Hypertensive heart disease Hyponatremia PLAN: IV antibiotics, Rocephin Continue IV fluids: NS Wound care Podiatry consult Vit C Zinc Pain control [place] Full code Advanced directives discussed x 18 minutes 12/06/2024: Continue IV antibiotics Continue the current management with the wound care Plan is to send the patient home on oral antibiotics in 1-2 days 12/07/24: COntinue IV antibiotics DC planning 12/08/2024: Continue daily dressing changes Continue IV antibiotics Rocephin Monitor closely DC planning in 1-2 days Plan discussed with: Patient Date of Service: Dec 08, 2024 Billing Provider: MOON GUTIERREZ MD Common Visit Codes: [id number] INP/OBS CARE(MOD) MOON GUTIERREZ MD Dec 08, 2024 10:44
[2024-12-08 13:00] VITALS: BP 142/88; PULSE 79; RESP 18; TEMP 98.8; O2SAT 96
[2024-12-08 16:37] VITALS: BP 132/87; PULSE 84; RESP 20; TEMP 98.1; O2SAT 98
[2024-12-08 21:00] VITALS: BP 121/75; PULSE 75; RESP 16; TEMP 97.9; O2SAT 97
[2024-12-09 01:00] VITALS: BP 144/79; PULSE 69; RESP 18; TEMP 97.9; O2SAT 98
[2024-12-09 05:00] VITALS: BP 128/83; PULSE 75; RESP 18; TEMP 97.1; O2SAT 100
[2024-12-09 06:11] LABS: Basophils # (auto) 0.1 10 ^3/uL (0-0.2); Basophils % (auto) 1.2 % (0.0-2.0); Eosinophils # (auto) 0.2 10 ^3/uL (0-0.8); Hemoglobin 11.7 g/dL (13.5-17.5); Lymphocytes # (auto) 1.5 10 ^3/uL (0.4-5.4); Monocytes # (auto) 0.6 10 ^3/uL (0-1.3); Neutrophils # (auto) 4.1 10 ^3/uL (1.6-8.6)
[2024-12-09 06:14] LABS: Eosinophils % (auto) 3.6 % (0.0-7.0); Hematocrit 32.7 % (41.0-53.0); Lymphocytes % (auto) 23.1 % (10.0-50.0); Mean Corpuscular Hemoglobin 34.7 pg (28.0-32.0); Mean Corpuscular Hgb Conc. 35.9 g/dL (32.0-36.0); Mean Corpuscular Volume 96.6 fL (80.0-100.0); Monocytes % (auto) 8.7 % (0.0-12.0); Neutrophils % (auto) 63.4 % (37.0-80.0); Platelet Count (auto) 342 10^3/uL (140-450); Red Blood Cells 3.39 10^6/uL (4.5-5.90); Red Cell Distribution Width 12.8 % (11.8-14.3); White Blood Cell 6.5 10^3/uL (4.4-10.8)
[2024-12-09 06:42] LABS: Anion Gap 7 (5-15); Carbon Dioxide 29 mmol/L (20-31); Chloride 98 mmol/L (98-107); Potassium 4.5 mmol/L (3.5-5.1)
[2024-12-09 06:43] LABS: Calcium 9.3 mg/dL (8.7-10.4)
[2024-12-09 06:48] LABS: BUN/Creatinine Ratio 18.6 (10.0-20.0); Blood Urea Nitrogen 16 mg/dL (9-23); Glucose 219 mg/dL (74-106); Magnesium 1.6 mg/dL (1.6-2.6); Sodium 134 mmol/L (136-145)
[2024-12-09 08:30] VITALS: BP 138/87; PULSE 77; RESP 16; TEMP 97.8; O2SAT 99
[2024-12-09 12:34] VITALS: BP 132/80; PULSE 75; RESP 18; TEMP 98.4; O2SAT 100
--- NOTE | 2024-12-09 15:05 | DVHPN2 ---
Subjective Right foot wound doing well no new complaints Reviewed: H&P, Labs Changes from previous H/P or p: Changes Eyes: No Pain, No Vision change, No Conjunctivae inflammation, No Eyelid inflammation; Other (Right eye prosthesis); No Redness ENT: No Ear pain, No Ear discharge, No Nose pain, No Nose discharge, No Nose congestion, No Mouth pain, No Mouth swelling, No Throat pain, No Throat swelling, No Other Cardiovascular: No Chest Pain, No Palpitations, No Orthopnea, No Paroxysmal Noc. Dyspnea, No Edema, No Lt Headedness, No Other Respiratory: No Cough, No Dry, No Shortness of breath, No SOB with excertion, No Wheezing, No Hemoptysis, No Pleuritic Pain, No Sputum, No Other Gastrointestinal: No Nausea, No Vomiting, No Abdominal Pain, No Diarrhea, No Constipation, No Melena, No Hematochezia, No Other Genitourinary: No Dysuria, No Frequency, No Incontinence, No Hematuria, No Retention, No Other Musculoskeletal: other (Right foot pain with redness and inflammation); No neck pain, No shoulder pain, No arm pain, No back pain, No hand pain, No leg pain, No foot pain Skin: No Rash, No Lesions, No Jaundice, No Bruising; Other (Right foot cellulitis) Objective Vitals Vital Signs Date Time Temp Pulse Resp B/P (MAP) Pulse Ox O2 Delivery O2 Flow Rate FiO2 12/09/24 12:34 98.4 75 18 132/80 (97) 100 98.4 12/09/24 08:00 Room Air* 0 21 Intake/Output Intake and Output 12/09/24 07:00 Intake Total 2300 ml Output Total 2125 ml Balance 175 ml Intake Oral 2250 ml IV Total 50 ml Output Urine Total 2125 ml General Appearance: Alert, Oriented X3 Lungs: Clear to auscultation Cardiovascular: Regular rate, Normal S1, Normal S2 Abdomen: Normal bowel sounds, Soft, No tenderness Extremities: No edema Medications Current Medications Medications Dose Ordered Sig/Rei Route Start Time Stop Time Status Last Admin Dose Admin Ceftriaxone Sodium 50 ml @ 100 mls/hr DAILY@09 IV 12/04/24 09:00 12/09/24 08:36 100 MLS/HR Acetaminophen/ Hydrocodone Bitart 1 tab Q4HP PRN PO 12/03/24 21:30 12/09/24 08:30 1 TAB Ondansetron HCl 4 mg Q4HP PRN IV 12/03/24 21:30 Docusate Sodium 100 mg BIDPRN PRN PO 12/03/24 21:30 Zinc Sulfate 220 mg DAILY PO 12/04/24 10:00 12/09/24 08:36 220 MG Ascorbic Acid 500 mg BID PO 12/03/24 22:00 12/09/24 08:36 500 MG Acetaminophen 650 mg Q6HP PRN PO 12/03/24 21:30 Hydralazine HCl 10 mg Q6HP PRN IV 12/03/24 21:30 12/07/24 02:45 10 MG Nitroglycerin 0.4 mg Q5MINP PRN SL 12/03/24 23:15 Morphine Sulfate 2 mg Q30M PRN IV 12/03/24 23:15 Magnesium Oxide 400 mg BID PO 12/06/24 22:00 12/09/24 08:36 400 MG Laboratory Results Laboratory Tests 12/09/24 05:24 Chemistry Test 12/09/24 05:24 Calcium Level 9.3 mg/dL (8.7-10.4) Magnesium Level 1.6 mg/dL (1.6-2.6) Microbiology Microbiology Date/Time Source Procedure Growth Status 12/04/24 01:25 Nose MRSA Screen - Final Complete Assessment/Plan Assessment/Plan Cellulitis right foot Bilateral feet wounds GAETANO due to vasomotor nephropathy Alcoholism HTN Hypertensive heart disease Hyponatremia PLAN: IV antibiotics, Rocephin Continue IV fluids: NS Wound care Podiatry consult Vit C Zinc Pain control [place] Full code Advanced directives discussed x 18 minutes 12/06/2024: Continue IV antibiotics Continue the current management with the wound care Plan is to send the patient home on oral antibiotics in 1-2 days 12/07/24: COntinue IV antibiotics DC planning 12/08/2024: Continue daily dressing changes Continue IV antibiotics Rocephin Monitor closely DC planning in 1-2 days 12/09/2024: Hypomagnesemia: Replace Cellulitis of the right foot: Continue IV antibiotics Continue wound care Dressing changes daily Monitor closely Plan discussed with: Patient Date of Service: Dec 09, 2024 Billing Provider: MOON GUTIERREZ MD Common Visit Codes: [id number] INP/OBS CARE(HIGH) MOON GUTIERREZ MD Dec 09, 2024 15:05
[2024-12-09] MEDS: MAGNESIUM SULFATE 1GM/100ML 100 ML IV SCH (15:52)
[2024-12-09 16:30] VITALS: BP 139/89; PULSE 72; RESP 16; TEMP 98.5; O2SAT 99
[2024-12-09 21:00] VITALS: BP 117/69; PULSE 15; PULSE 98; RESP 15; RESP 98; TEMP 98.4; O2SAT 98
[2024-12-10 01:00] VITALS: BP 156/83; PULSE 75; RESP 16; TEMP 98.3; O2SAT 97
[2024-12-10 04:55] VITALS: BP 144/78; PULSE 71; RESP 17; TEMP 98.6; O2SAT 97
[2024-12-10 05:51] LABS: Anion Gap 3 (5-15); Carbon Dioxide 30 mmol/L (20-31); Chloride 100 mmol/L (98-107); Potassium 4.6 mmol/L (3.5-5.1)
[2024-12-10 05:53] LABS: Calcium 9.5 mg/dL (8.7-10.4)
[2024-12-10 05:57] LABS: BUN/Creatinine Ratio 16.9 (10.0-20.0); Blood Urea Nitrogen 14 mg/dL (9-23)
[2024-12-10 05:58] LABS: Glucose 192 mg/dL (74-106); Magnesium 1.7 mg/dL (1.6-2.6); Sodium 133 mmol/L (136-145)
[2024-12-10 08:30] VITALS: BP 126/81; PULSE 74; RESP 16; TEMP 97; O2SAT 98
[2024-12-10 12:30] VITALS: BP 158/98; PULSE 72; RESP 19; TEMP 98.7; O2SAT 99
--- NOTE | 2024-12-10 13:06 | DVHPN2 ---
Subjective Right foot wound doing well no new complaints Reviewed: H&P, Labs Changes from previous H/P or p: Changes Eyes: No Pain, No Vision change, No Conjunctivae inflammation, No Eyelid inflammation; Other (Right eye prosthesis); No Redness ENT: No Ear pain, No Ear discharge, No Nose pain, No Nose discharge, No Nose congestion, No Mouth pain, No Mouth swelling, No Throat pain, No Throat swelling, No Other Cardiovascular: No Chest Pain, No Palpitations, No Orthopnea, No Paroxysmal Noc. Dyspnea, No Edema, No Lt Headedness, No Other Respiratory: No Cough, No Dry, No Shortness of breath, No SOB with excertion, No Wheezing, No Hemoptysis, No Pleuritic Pain, No Sputum, No Other Gastrointestinal: No Nausea, No Vomiting, No Abdominal Pain, No Diarrhea, No Constipation, No Melena, No Hematochezia, No Other Genitourinary: No Dysuria, No Frequency, No Incontinence, No Hematuria, No Retention, No Other Musculoskeletal: other (Right foot pain with redness and inflammation); No neck pain, No shoulder pain, No arm pain, No back pain, No hand pain, No leg pain, No foot pain Skin: No Rash, No Lesions, No Jaundice, No Bruising; Other (Right foot cellulitis) Objective Vitals Vital Signs Date Time Temp Pulse Resp B/P (MAP) Pulse Ox O2 Delivery O2 Flow Rate FiO2 12/10/24 08:30 97.0 74 16 126/81 (96) 98 97.0 12/10/24 08:00 Room Air* 0 21 Intake/Output Intake and Output 12/10/24 07:00 Intake Total 990 ml Output Total 1300 ml Balance -310 ml Intake Oral 890 ml IV Total 100 ml Output Urine Total 1300 ml # Voids 4 # Bowel Movements 1 General Appearance: Alert, Oriented X3 Lungs: Clear to auscultation Cardiovascular: Regular rate, Normal S1, Normal S2 Abdomen: Normal bowel sounds, Soft, No tenderness Extremities: No edema Medications Current Medications Medications Dose Ordered Sig/Rei Route Start Time Stop Time Status Last Admin Dose Admin Ceftriaxone Sodium 50 ml @ 100 mls/hr DAILY@09 IV 12/04/24 09:00 12/10/24 09:08 100 MLS/HR Acetaminophen/ Hydrocodone Bitart 1 tab Q4HP PRN PO 12/03/24 21:30 12/10/24 02:15 1 TAB Ondansetron HCl 4 mg Q4HP PRN IV 12/03/24 21:30 Docusate Sodium 100 mg BIDPRN PRN PO 12/03/24 21:30 Zinc Sulfate 220 mg DAILY PO 12/04/24 10:00 12/10/24 09:08 220 MG Ascorbic Acid 500 mg BID PO 12/03/24 22:00 12/10/24 09:08 500 MG Acetaminophen 650 mg Q6HP PRN PO 12/03/24 21:30 Hydralazine HCl 10 mg Q6HP PRN IV 12/03/24 21:30 12/07/24 02:45 10 MG Nitroglycerin 0.4 mg Q5MINP PRN SL 12/03/24 23:15 Morphine Sulfate 2 mg Q30M PRN IV 12/03/24 23:15 Magnesium Oxide 400 mg BID PO 12/06/24 22:00 12/10/24 09:08 400 MG Laboratory Results Laboratory Tests 12/09/24 05:24 12/10/24 04:47 Chemistry Test 12/10/24 04:47 Calcium Level 9.5 mg/dL (8.7-10.4) Magnesium Level 1.7 mg/dL (1.6-2.6) Microbiology Microbiology Date/Time Source Procedure Growth Status 12/04/24 01:25 Nose MRSA Screen - Final Complete Assessment/Plan Assessment/Plan Cellulitis right foot Bilateral feet wounds GAETANO due to vasomotor nephropathy Alcoholism HTN Hypertensive heart disease Hyponatremia PLAN: IV antibiotics, Rocephin Continue IV fluids: NS Wound care Podiatry consult Vit C Zinc Pain control [place] Full code Advanced directives discussed x 18 minutes 12/06/2024: Continue IV antibiotics Continue the current management with the wound care Plan is to send the patient home on oral antibiotics in 1-2 days 12/07/24: COntinue IV antibiotics DC planning 12/08/2024: Continue daily dressing changes Continue IV antibiotics Rocephin Monitor closely DC planning in 1-2 days 12/09/2024: Hypomagnesemia: Replace Cellulitis of the right foot: Continue IV antibiotics Continue wound care Dressing changes daily Monitor closely 12/10/2024: Continue the current management Continue magnesium p.o. Continue IV Rocephin Plan discussed with: Patient Date of Service: Dec 10, 2024 Billing Provider: MOON GUTIERREZ MD Common Visit Codes: [id number] INP/OBS CARE(MOD) MOON GUTIERREZ MD Dec 10, 2024 13:06
[2024-12-10 16:46] VITALS: BP 140/85; PULSE 74; RESP 16; TEMP 97.8; O2SAT 96
[2024-12-10 21:00] VITALS: BP 146/79; PULSE 78; RESP 17; TEMP 98.5; O2SAT 98
[2024-12-11] VITALS (7 sets, daily range): BP systolic 116–158; BP diastolic 67–81; PULSE 70–78; RESP 17–18; TEMP 97.9–98.7; O2SAT 97–100
--- NOTE | 2024-12-11 13:05 | DVHPN2 ---
Subjective Right foot wound doing well no new complaints Reviewed: H&P, Labs Changes from previous H/P or p: Changes Eyes: No Pain, No Vision change, No Conjunctivae inflammation, No Eyelid inflammation; Other (Right eye prosthesis); No Redness ENT: No Ear pain, No Ear discharge, No Nose pain, No Nose discharge, No Nose congestion, No Mouth pain, No Mouth swelling, No Throat pain, No Throat swelling, No Other Cardiovascular: No Chest Pain, No Palpitations, No Orthopnea, No Paroxysmal Noc. Dyspnea, No Edema, No Lt Headedness, No Other Respiratory: No Cough, No Dry, No Shortness of breath, No SOB with excertion, No Wheezing, No Hemoptysis, No Pleuritic Pain, No Sputum, No Other Gastrointestinal: No Nausea, No Vomiting, No Abdominal Pain, No Diarrhea, No Constipation, No Melena, No Hematochezia, No Other Genitourinary: No Dysuria, No Frequency, No Incontinence, No Hematuria, No Retention, No Other Musculoskeletal: other (Right foot pain with redness and inflammation); No neck pain, No shoulder pain, No arm pain, No back pain, No hand pain, No leg pain, No foot pain Skin: No Rash, No Lesions, No Jaundice, No Bruising; Other (Right foot cellulitis) Objective Vitals Vital Signs Date Time Temp Pulse Resp B/P (MAP) Pulse Ox O2 Delivery O2 Flow Rate FiO2 12/11/24 08:48 97.9 78 18 116/67 (83) 100 97.9 12/11/24 07:30 Room Air* 0 21 Intake/Output Intake and Output 12/11/24 07:00 Intake Total 1090 ml Output Total 1200 ml Balance -110 ml Intake Oral 1040 ml IV Total 50 ml Output Urine Total 1200 ml # Voids 4 # Bowel Movements 3 General Appearance: Alert, Oriented X3 Lungs: Clear to auscultation Cardiovascular: Regular rate, Normal S1, Normal S2 Abdomen: Normal bowel sounds, Soft, No tenderness Extremities: No edema Medications Current Medications Medications Dose Ordered Sig/Rei Route Start Time Stop Time Status Last Admin Dose Admin Ceftriaxone Sodium 50 ml @ 100 mls/hr DAILY@09 IV 12/04/24 09:00 12/11/24 09:02 100 MLS/HR Acetaminophen/ Hydrocodone Bitart 1 tab Q4HP PRN PO 12/03/24 21:30 12/11/24 09:09 1 TAB Ondansetron HCl 4 mg Q4HP PRN IV 12/03/24 21:30 Docusate Sodium 100 mg BIDPRN PRN PO 12/03/24 21:30 Zinc Sulfate 220 mg DAILY PO 12/04/24 10:00 12/11/24 09:02 220 MG Ascorbic Acid 500 mg BID PO 12/03/24 22:00 12/11/24 09:02 500 MG Acetaminophen 650 mg Q6HP PRN PO 12/03/24 21:30 Hydralazine HCl 10 mg Q6HP PRN IV 12/03/24 21:30 12/07/24 02:45 10 MG Nitroglycerin 0.4 mg Q5MINP PRN SL 12/03/24 23:15 Morphine Sulfate 2 mg Q30M PRN IV 12/03/24 23:15 Magnesium Oxide 400 mg BID PO 12/06/24 22:00 12/11/24 09:02 400 MG Laboratory Results Laboratory Tests 12/09/24 05:24 12/10/24 04:47 Microbiology Microbiology Date/Time Source Procedure Growth Status 12/04/24 01:25 Nose MRSA Screen - Final Complete Assessment/Plan Assessment/Plan Cellulitis right foot Bilateral feet wounds GAETANO due to vasomotor nephropathy Alcoholism HTN Hypertensive heart disease Hyponatremia PLAN: IV antibiotics, Rocephin Continue IV fluids: NS Wound care Podiatry consult Vit C Zinc Pain control [place] Full code Advanced directives discussed x 18 minutes 12/06/2024: Continue IV antibiotics Continue the current management with the wound care Plan is to send the patient home on oral antibiotics in 1-2 days 12/07/24: COntinue IV antibiotics DC planning 12/08/2024: Continue daily dressing changes Continue IV antibiotics Rocephin Monitor closely DC planning in 1-2 days 12/09/2024: Hypomagnesemia: Replace Cellulitis of the right foot: Continue IV antibiotics Continue wound care Dressing changes daily Monitor closely 12/10/2024: Continue the current management Continue magnesium p.o. Continue IV Rocephin 12/11/2024: Continue daily wound dressings Continue IV Rocephin Discharge planning for tomorrow Since the patient does not qualify for wound care at home we will have to provide him with some supplies so he can do his dressing changes himself Plan discussed with: Patient My Orders Orders - MOON GUTIERREZ MD Procedure Category Date Status Time * Wound Consult CONS 12/11/24 Transmitted Date of Service: Dec 11, 2024 Billing Provider: MOON GUTIERREZ MD Common Visit Codes: [id number] INP/OBS CARE(MOD) MOON GUTIERREZ MD Dec 11, 2024 13:05
[2024-12-12 01:00] VITALS: BP 130/77; PULSE 71; RESP 17; TEMP 98.1; O2SAT 99
[2024-12-12 05:00] VITALS: BP 129/72; PULSE 78; RESP 18; TEMP 99; O2SAT 100
[2024-12-12 08:00] VITALS: PULSE 72; RESP 16; O2SAT 97
[2024-12-12 09:00] VITALS: BP 117/72; PULSE 76; RESP 18; TEMP 98.6; O2SAT 99
--- NOTE | 2024-12-12 10:56 | DVHDS2 ---
Discharge Summary Date of Admission December 03, 2024 at 23:01 Date of Discharge: Dec 12, 2024 Labs/Diagnostic Data: Laboratory Results Test 12/10/24 04:47 12/09/24 05:24 12/04/24 05:34 12/03/24 12:33 Sodium Level 133 mmol/L (136-145) Potassium Level 4.6 mmol/L (3.5-5.1) Chloride Level 100 mmol/L (98-107) Carbon Dioxide Level 30 mmol/L (20-31) Anion Gap 3 (5-15) Blood Urea Nitrogen 14 mg/dL (9-23) Creatinine 0.83 mg/dL (0.700-1.30) Glomerular Filtration Rate Calc 103 mL/min (>90) BUN/Creatinine Ratio 16.9 (10.0-20.0) Serum Glucose 192 mg/dL (74-106) Calcium Level 9.5 mg/dL (8.7-10.4) Magnesium Level 1.7 mg/dL (1.6-2.6) White Blood Count 6.5 10^3/uL (4.4-10.8) Red Blood Count 3.39 10^6/uL (4.5-5.90) Hemoglobin 11.7 g/dL (13.5-17.5) Hematocrit 32.7 % (41.0-53.0) Mean Corpuscular Volume 96.6 fL (80.0-100.0) Mean Corpuscular Hemoglobin 34.7 pg (28.0-32.0) Mean Corpuscular Hemoglobin Concent 35.9 g/dL (32.0-36.0) Red Cell Distribution Width 12.8 % (11.8-14.3) Platelet Count 342 10^3/uL (140-450) Mean Platelet Volume 7.1 fL (6.9-10.8) Neutrophils (%) (Auto) 63.4 % (37.0-80.0) Lymphocytes (%) (Auto) 23.1 % (10.0-50.0) Monocytes (%) (Auto) 8.7 % (0.0-12.0) Eosinophils (%) (Auto) 3.6 % (0.0-7.0) Basophils (%) (Auto) 1.2 % (0.0-2.0) Neutrophils # (Auto) 4.1 10 ^3/uL (1.6-8.6) Lymphocytes # (Auto) 1.5 10 ^3/uL (0.4-5.4) Monocytes # (Auto) 0.6 10 ^3/uL (0-1.3) Eosinophils # (Auto) 0.2 10 ^3/uL (0-0.8) Basophils # (Auto) 0.1 10 ^3/uL (0-0.2) Nucleated Red Blood Cells 0.0 % Total Bilirubin 0.6 mg/dL (0.2-1.0) Aspartate Amino Transferase (AST) 14 U/L (13-40) Alanine Aminotransferase (ALT) 23 U/L (7-40) Alkaline Phosphatase 96 U/L (46-116) Total Protein 6.7 g/dL (5.7-8.2) Albumin 3.6 g/dL (3.2-4.8) Hepatitis B Surface Antigen Negative (Negative) Hepatitis C Antibody Negative (Negative) POC Glucose 207 mg/dl (70-106) Other Laboratory Tests 12/10/24 04:47 12/09/24 05:24 Brief Hx & Hospital Course: Final diagnoses: Cellulitis right foot Bilateral feet wounds GAETANO due to vasomotor nephropathy Alcoholism HTN Hypertensive heart disease Hyponatremia 54-year-old male who was admitted for infection of his right foot He was continued on the wound care He was given IV antibiotics Apparently because he does not have insurance she could not get the home health and care that he needed last time and therefore he came back Podiatry saw the patient again and recommended to continue wound care Since the patient does not have insurance he can not have home health and therefore he will have to do the wound dressing himself We will bring the patient back to the discharge clinic in 1 week for follow up on his foot Stable for discharge Condition at Discharge: Stable Final Diagnosis/Problems List Cellulitis right foot Bilateral feet wounds GAETANO due to vasomotor nephropathy Alcoholism HTN Hypertensive heart disease Hyponatremia Discharge Disposition: Home SNF Discharge Will this Physician continue t: No Discharge Statement: "Patient was advised to return to the ER or call 911 if any headaches, dizziness, shortness of breath, chest pain, abdominal pain, bleeding, fevers, or worsening of medical condition. Patient was counseled about treatment plan, medications, possible side effects, patientverbalized understanding. All questions were answered to the best of my ability. This discharge took greater then 30 minutes in planning, reviewing documentation, counseling the patient, and discussing with other team members." ASSESSMENT ASSESSMENT Assessment Date of Service: Dec 12, 2024 Billing Provider: MOON GUTIERREZ MD Common Visit Codes: 77416-EFS/OBS DISCH DAY >30min MOON GUTIERREZ MD Dec 12, 2024 10:56
[2024-12-12 12:10] VITALS: BP 117/72; PULSE 76; RESP 19; TEMP 98.6; O2SAT 99
== END 2024-12-12 14:10 | disposition home or self-care (01) | DRG 383 ==
LOC: ER 12:04 → OVERFLOW 23:01 → WEST WING 12-04 01:14
PROVIDERS: ADMIT Internal Medicine Geriatric Medicine; ATTEND Internal Medicine Geriatric Medicine
DX: L03.115 Cellulitis of right lower limb (principal); N17.0 Acute kidney failure with tubular necrosis; I11.9 Hypertensive heart disease without heart failure; E87.1 Hypo-osmolality and hyponatremia; S91.302A Unspecified open wound, left foot, initial encounter; S91.301A Unspecified open wound, right foot, initial encounter; L97.919 Non-pressure chronic ulcer of unspecified part of right lower leg with unspecified severity; F10.20 Alcohol dependence, uncomplicated; F17.210 Nicotine dependence, cigarettes, uncomplicated; Z79.899 Other long term (current) drug therapy; I25.2 Old myocardial infarction; X58.XXXA Exposure to other specified factors, initial encounter; Y93.89 Activity, other specified; Y92.89 Other specified places as the place of occurrence of the external cause; Y99.8 Other external cause status; Z83.3 Family history of diabetes mellitus; Y90.9 Presence of alcohol in blood, level not specified; Z59.71 Insufficient health insurance coverage
CPT/HCPCS: 36415; 73620; 80048; 80053; 82962; 83735; 85025; 86803; 87081; 87340; 96365; G0378

== ENCOUNTER 2024-12-23 11:20 | Inpatient (IN) | payer MEDICAID ==
[~2024-12-23] VITALS: Ht 177.8 cm; Wt 99.6 kg
--- NOTE | 2024-12-23 12:01 | ED.PDOC ---
Musculoskeletal HPI Comments discharge diagnosis 12/12/24 Cellulitis right foot Bilateral feet wounds GAETANO due to vasomotor nephropathy Alcoholism HTN Hypertensive heart disease Hyponatremia HPI: 54 [id number] presents to the emergency department with a chief complaint of RT foot wound check. Patient was seen in this ED on 12/03/24 due to blister on RT foot, was admitted, given IV antibiotics and discharged on 12/12/24, instructed to perform self dressing change due to insurance issues, had to follow up with discharge clinic. Patient returned to ED today due to pain on RT heel, rates pain 10/10. No other symptoms or modifying factors present at this time. Initial Vitals BP: 120/69 HR: 88 RR: 17 O2 Sat: 95 % Temp: 98.2 F Past Medical history: ID Past Surgical history: RT eye surgery Medications: Denies Social History: Denies Allergies: NKDA HPI: Poor Historian. Past Medical History: Past Surgical History: REVIEW OF SYSTEMS: CONSTITUTIONAL: Denies acute: fever, diaphoresis, chills, generalized weakness. HEAD: Denies acute: headache, photophobia Eyes: Denies acute: Double vision, vision loss, eye pain, eye discharge. EARS: Denies acute: tinnitus, hearing loss, ear discharge, ear pain, THROAT: Denies acute: sore throat, swelling, difficulty swallowing , pain with swallowing, change in voice. NECK: Denies acute: neck pain, neck swelling, stiff neck. HEART: Denies acute : chest pain, palpitations, LUNGS: Denies acute: SOB, wheezing, cough, hemoptysis ABDOMEN: Denies acute: abdominal pain, Nausea, Vomiting, diarrhea, melena , hematemesis, hematochezia SKIN: Denies acute: itchiness. EXTREMITIES: Denies acute: calf pain, numbness, tingling, weakness, Denies acute: Low back pain. Neuro: Denies acute: focal neurological deficit, motor or sensory focal neurological deficit, tremors, seizure like activity, confusion, dizziness, change in mental status, loss of bowel or bladder function, cauda equina like symptoms. : Denies acute: dysuria, hematuria, flank pain, increase in urinary frequency. PSYCH: Denies acute: hallucination, suicidal ideation, homicidal ideation. PHYSICAL EXAM: General: -----mild---acute distress, awake and alert. Head: normocephalic, atraumatic. Neck: supple, trachea is midline, no swelling. Throat: Normal phonation. Eyes:, no erythema, no purulent discharge, no proptosis, no icterus. Heart: regular rate, regular rhythm, no significant murmur appreciated. Lungs: no apparent respiratory distress, Able to speak in full sentences. No wheezing, no rhonchi, no crackles. No stridors Clear to auscultation bilaterally. Abdomen: non tender to palpation, non distended, soft, no guarding, no rebound, + bowel sounds. Neuro: Awake, Alert, oriented to name, self, situation, follows commands GCS=15. Speech is normal. Skin: no petechia, no purpura, no cyanosis, non-pale, not jaundice. Lower extremities: --bilateral trace - Pitting edema Evaluation of the area of complaint: Right foot has wound dressing wrapping. The foot was completely unwrapped. It is smells and looks like patient has not been taking care of his foot and that has been wrapped for a long period of time. From above the heel extending into the forefoot there is skin exfoliation and erythema. This some generalized swelling. Patient has a chronic right heel deep foot ulcer. There is erythema throughout the right foot. Patient motor is present. Able to wiggle his toes. Pedal pulse is present. Makes eye contact. moves all four extremities. Face: no apparent facial droop. Ambulating in the ED with a crutch. ED COURSE: DISCLAIMER: This medical document was created using an electronic medical record system with voice recognition software and computerized dictation system. Although this document has been carefully reviewed, there might still be some phonetic and typographical errors. Occasional wrong-word or "sound-alike" substitutions may have occurred due to the inherent limitations of voice recognition software. These areas are purely typographical due to imperfections of the software programs and do not reflect any compromise in the patient's medical care. Please read the chart carefully and recognize, using context, where these substitutions have occurred. Time Seen by MD: 11:35 Reviewed Notes: Medications, Allergies Allergies: Coded Allergies: NO KNOWN ALLERGIES (Unverified , 11/22/24) Home Meds Active Scripts Hydrocodone-Acetaminophen (Hydrocodone Bitartrate/AC 5-325 mg) 1 Tab Tab, 1 TAB PO Q4HP PRN, #30 TAB Prov:BOBBY RIVERS MD 11/29/24 Amoxicillin & Pot Clavulanate (AUGMENTIN TABLET) 875 Mg Tb, 875 MG PO BID for 7 Days, #14 TAB 0 Refills Prov:MARGARETTE AGUILAR 11/29/24 Polyethylene Glycol 3350 (Miralax) 17 Gm Pow, 17 GM PO DAILY PRN for 20 Days, #20 POW 0 Refills Prov:MARGARETTE AGUILAR 11/29/24 Nifedipine (Nifedipine Er) 30 Mg Tab, 90 MG PO DAILY for 28 Days, #84 TAB Prov:MARGARETTE AGUILAR 11/29/24 Losartan Potassium (Losartan Potassium) 50 Mg Tab, 50 MG PO DAILY for 28 Days, #28 TAB Prov:MARGARETTE AGUILAR 11/29/24 Gabapentin (Gabapentin) 100 Mg Cap, 100 MG PO TID for 28 Days, #84 CAP Prov:MARGARETTE AGUILAR 11/29/24 Information Source: Patient Mode of Arrival: Ambulatory Location: Right Extremity Location: Foot Timing: Weeks Prehospital treatment: None Severity: Moderate Able to Move Extremity: Yes Bear Weight: Limited Pain: Moderate Circumstances: Preceding Wound Onset of Symptoms: After Trauma Symptoms: Pain, Erythema DVT Risk Factors: NONE Associated signs and symptoms: Swelling, Foot pain Past Medical History PAST MEDICAL HISTORY: ID Surgical History: Denies all surgeries Family History Family History: Reviewed,noncontributory to illness, Unknown Social History Smoker: Cigarettes Alcohol: Denies ETOH Use Drugs: Denies Drug Use Lives In: Home Was a procedure done? Was a procedure done?: No Differential Diagnosis EXT Differential Diagnosis: Cellulitis, Deep Vein Thrombosis, Compartment Syndrome, Septic, Neurovascular injury, Other (Leg swellingDdx include but not limited to DVT, ischemic limb, pitting edema, volume overload, CHF, cellulitis, hematoma, compartment syndrome, dependent edema, venous stasis.) X-Ray, Labs, Meds, VS Vital Signs Date Time Temp Pulse Resp B/P (MAP) Pulse Ox O2 Delivery O2 Flow Rate FiO2 12/23/24 14:17 97.7 86 20 105/64 (78) 96 97.7 12/23/24 11:38 98.2 88 18 120/69 (86) 95 98.2 Lab Test 12/23/24 12:00 Range/Units White Blood Count 7.7 4.4-10.8 10^3/uL Red Blood Count 3.40 L 4.5-5.90 10^6/uL Hemoglobin 11.5 L 13.5-17.5 g/dL Hematocrit 31.5 L 41.0-53.0 % Mean Corpuscular Volume 92.7 80.0-100.0 fL Mean Corpuscular Hemoglobin 34.0 H 28.0-32.0 pg Mean Corpuscular Hemoglobin Concent 36.7 H 32.0-36.0 g/dL Red Cell Distribution Width 13.3 11.8-14.3 % Platelet Count 371 140-450 10^3/uL Mean Platelet Volume 6.9 6.9-10.8 fL Neutrophils (%) (Auto) 70.6 37.0-80.0 % Lymphocytes (%) (Auto) 19.6 10.0-50.0 % Monocytes (%) (Auto) 7.8 0.0-12.0 % Eosinophils (%) (Auto) 1.4 0.0-7.0 % Basophils (%) (Auto) 0.6 0.0-2.0 % Neutrophils # (Auto) 5.5 1.6-8.6 10 ^3/uL Lymphocytes # (Auto) 1.5 0.4-5.4 10 ^3/uL Monocytes # (Auto) 0.6 0-1.3 10 ^3/uL Eosinophils # (Auto) 0.1 0-0.8 10 ^3/uL Basophils # (Auto) 0 0-0.2 10 ^3/uL Nucleated Red Blood Cells 0.1 % Erythrocyte Sedimentation Rate 104 H 0-20 mm/hr Sodium Level 129 L 136-145 mmol/L Potassium Level 3.7 3.5-5.1 mmol/L Chloride Level 97 L 98-107 mmol/L Carbon Dioxide Level 20 20-31 mmol/L Anion Gap 12 5-15 Blood Urea Nitrogen 7 L 9-23 mg/dL Creatinine 0.60 L 0.700-1.30 mg/dL Glomerular Filtration Rate Calc 114 >90 mL/min BUN/Creatinine Ratio 11.7 10.0-20.0 Serum Glucose 160 H 74-106 mg/dL Lactic Acid Level 1.7 0.4-2.0 mmol/L Calcium Level 8.5 L 8.7-10.4 mg/dL Total Bilirubin 0.4 0.2-1.0 mg/dL Aspartate Amino Transferase (AST) 17 <34 U/L Alanine Aminotransferase (ALT) 17 7-40 U/L Alkaline Phosphatase 100 46-116 U/L C-Reactive Protein High Sensitivity 5.73 H <1.0 mg/dL Total Protein 7.6 5.7-8.2 g/dL Albumin 4.1 3.2-4.8 g/dL [place] [address] Ph: [phone] DIAGNOSTIC IMAGING Diagnostic Imaging Report : [id number] Signed PATIENT: FLORINA NICKERSON ACCT: [id number] UNIT: [id number] : 1970 LOC: ER ROOM / BED: / AGE / SEX: 54 / M ADM STATUS: REG ER SERVICE 1142 ORDERING PHYSICIAN: CRYSTAL MURRAY DO PROCEDURE(s): RLDVT - RT Lower DVT REASON: FOOT INFECTION SWELLING ORDER NUMBER(s): [id number], ACCESSION NUMBER(s): [id number] Right lower extremity venous duplex Clinical History: FOOT INFECTION SWELLING Comparison: None Findings and technique: Duplex doppler evaluation of the deep venous system of the right lower extremity from the common femoral vein to the popliteal vein including color doppler and spectral/pulsed waveform analysis was performed. The common femoral vein demonstrates appropriate compressibility and waveform variability. There is compressibility/patency of the great saphenous vein at the proximal thigh. The femoral vein demonstrates appropriate compressibility and waveform variability. The deep femoral vein demonstrates appropriate compressibility and waveform variability. The popliteal vein demonstrates appropriate compressibility and waveform variability. There is normal compressibility at the tibioperoneal trunk. Impression: 1. No right femoropopliteal venous thrombosis. 2. If clinical concern/symptoms persist or worsen, short-interval follow-up study is suggested. ATED BY: CODY VIZCARRA MD DICTATED DATE/TIME: 12/23/24 1312 SIGNED BY: CODY VIZCARRA MD SIGNED DATE/TIME: 12/23/241311 CC: [place] [id number] Ph: [phone] DIAGNOSTIC IMAGING Diagnostic Imaging Report : [id number] Signed PATIENT: FLORINA NICKERSON ACCT: [id number] UNIT: [id number] : 1970 LOC: ER ROOM / BED: / AGE / SEX: 54 / M ADM STATUS: REG ER SERVICE 1132 ORDERING PHYSICIAN: CRYSTAL MURRAY DO PROCEDURE(s): RFOOT - R FOOT 3 VIEW XRAY REASON: foot wound ORDER NUMBER(s): [id number], ACCESSION NUMBER(s): [id number] XY R FOOT 3 VIEW XRAY, INDICATION: foot wound TECHNICAL DATA: Frontal, oblique and lateral views were obtained of the right foot. COMPARISON: XY R FOOT 2 VIEW XRAY on DOS: 12/03/24, XY R FOOT 3 VIEW XRAY on DOS: 11/22/24 FINDINGS: No fracture is identified. Joint spaces are maintained. Alignment is anatomic. The hallux sesamoids appear normal. Soft tissue defect at the heel. IMPRESSION: Soft tissue defect at the heel. No acute fracture or dislocation of the right foot. ATED BY: TITUS ECHEVERRIA MD DICTATED DATE/TIME: 12/23/241253 SIGNED BY: TITUS ECHEVERRIA MD SIGNED DATE/TIME: 12/23/241253 CC: [place] [address] Ph: [phone] DIAGNOSTIC IMAGING Diagnostic Imaging Report : [id number] Signed PATIENT: FLORINA NICKERSON ACCT: [id number] UNIT: [id number] : 1970 LOC: ER ROOM / BED: / AGE / SEX: 54 / M ADM STATUS: REG ER SERVICE 1142 ORDERING PHYSICIAN: CRYSTAL MURRAY DO PROCEDURE(s): RTLEXW - RT LOWER EXTREMITY W CON REASON: FOOT INFECTION ORDER NUMBER(s): [id number], ACCESSION NUMBER(s): [id number] EXAM: CT RT LOWER EXTREMITY W CON HISTORY: FOOT INFECTION COMPARISON: Right lower extremity CT scan dated 11/23/2024; right foot radiographs dated 12/23/2024 and 12/03/2024. TECHNIQUE: Noncontrast axial CT images of the right foot and ankle were performed. Sagittal and coronal reformatted images were obtained. This CT exam was performed using one or more of the following dose reduction techniques: Automated exposure control, adjustment of the mA and/or kv according to patient size, or the use of iterative reconstruction techniques. Radiation Dose Information: CT Dose: CTDI volume is 7.75 mGy. Dose-length product is 213.85 mGy*cm FINDINGS/IMPRESSION: 1. No acute fracture of the right foot. 2. Plantar hindfoot ulceration with gas tracking through the soft tissues as deep as the cortex of the calcaneus, with new erosions of the plantar aspect of the calcaneal tuberosity, greater medially, consistent with osteomyelitis. 3. Cystic appearance of the calcaneus deep to the calcaneal sulcus is stable. Additionally, there is lucency of the body of the calcaneus likely communicating with the aforementioned cyst. These findings are likely benign and not related to infectious or other pathologic process. 4. Mild thickening of the achilles tendon suggestive of tendinosis. 5. Mild hallux valgus and chronic subcortical erosions of the 1st metatarsal head. 6. 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 7. Diffuse subcutaneous edema may be due to cellulitis, venous stasis, or other etiology. ATED BY: XIN FREITAS MD DICTATED DATE/TIME: 12/23/24 1350 SIGNED BY: XIN FREITAS MD SIGNED DATE/TIME: 12/23/24 4740 CC: [place] [address] Ph: [phone] DIAGNOSTIC IMAGING Diagnostic Imaging Report : [id number] Signed PATIENT: FLORINA NICKERSON ACCT: [id number] UNIT: [id number] : 1970 LOC: ER ROOM / BED: / AGE / SEX: 54 / M ADM STATUS: REG ER SERVICE 1142 ORDERING PHYSICIAN: CRYSTAL MURRAY DO PROCEDURE(s): RTLEXW - RT LOWER EXTREMITY W CON REASON: FOOT INFECTION ORDER NUMBER(s): [id number], ACCESSION NUMBER(s): [id number] EXAM: CT RT LOWER EXTREMITY W CON HISTORY: FOOT INFECTION COMPARISON: Right lower extremity CT scan dated 11/23/2024; right foot radiographs dated 12/23/2024 and 12/03/2024. TECHNIQUE: Noncontrast axial CT images of the right foot and ankle were performed. Sagittal and coronal reformatted images were obtained. This CT exam was performed using one or more of the following dose reduction techniques: Automated exposure control, adjustment of the mA and/or kv according to patient size, or the use of iterative reconstruction techniques. Radiation Dose Information: CT Dose: CTDI volume is 7.75 mGy. Dose-length product is 213.85 mGy*cm FINDINGS/IMPRESSION: 1. No acute fracture of the right foot. 2. Plantar hindfoot ulceration with gas tracking through the soft tissues as deep as the cortex of the calcaneus, with new erosions of the plantar aspect of the calcaneal tuberosity, greater medially, consistent with osteomyelitis. 3. Cystic appearance of the calcaneus deep to the calcaneal sulcus is stable. Additionally, there is lucency of the body of the calcaneus likely communicating with the aforementioned cyst. These findings are likely benign and not related to infectious or other pathologic process. 4. Mild thickening of the achilles tendon suggestive of tendinosis. 5. Mild hallux valgus and chronic subcortical erosions of the 1st metatarsal head. 6. 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 7. Diffuse subcutaneous edema may be due to cellulitis, venous stasis, or other etiology. ATED BY: XIN FREITAS MD DICTATED DATE/TIME: 12/23/24 1358 SIGNED BY: XIN FREITAS MD SIGNED DATE/TIME: 12/23/24 1358 CC: Time of 1ST Reevaluation: 12:05 Reevaluation 1ST: Unchanged Patient Education/Counseling: Diagnosis, Treatment Family Education/Counseling: No Family Present Comments Patient presented with the above HPI.--foot cellulitis----workup was initiated. patient was found with the above mentioned diagnosis. the following medications were ordered: please refer to order lists of meds and tests obtained by myself Dr. Murray. Patient ED course and VS have been stabilized. Patient has been reassessed in th e ED and remained in a stable condition. Pertinent incidental findings were discussed with the patient and/or family. Patient/family voices understanding and is agreeable with plan. Patient has been observed in the ED adequate length of time to insure improvement/stability. Escalation of care considered: Consideration of escalation to observation or admission Sepsis protocol was initiated with weight based fluid resuscitation. Patient was ADMITTED to the medicine team for further evaluation and treatment of their presentation. Patient was DISCHARGED home in a stable condition. All the reports of any imaging studies that were ordered by myself were reviewed by myself. Departure 1 Departure Time of Disposition: 12:10 Impression: Primary Impression: Cellulitis of right foot Additional Impressions: Wound of foot Osteomyelitis Disposition: ADMITTED INPATIENT Admit to: Tele Condition: Guarded Discharged With: Self Critical Care Note Critical Care Time?: Yes (45 min-critical care time only) Heart Score Heart Score: Heart Score Response (Comments) Value History N/A 0 EKG N/A 0 Age N/A 0 Risk Factors N/A 0 Troponin N/A 0 Total 0 I personally scribed for CRYSTAL MURRAY DO ([email or web address]) on 12/23/24 at 12:01. Electronically submitted by Sharon Arredondo ([email or web address]). I personally scribed for CRYSTAL MURRAY DO ([email or web address]) on 12/23/24 at 13:31. Electronically submitted by Sharon Arredondo ([email or web address]). I personally scribed for CRYSTAL MURRAY DO ([email or web address]) on 12/23/24 at 14:40. Electronically submitted by Sharon Arredondo ([email or web address]). CRYSTAL MURRAY DO Dec 23, 2024 12:01
[2024-12-23 12:35] LABS: Basophils # (auto) 0 10 ^3/uL (0-0.2); Basophils % (auto) 0.6 % (0.0-2.0); Eosinophils # (auto) 0.1 10 ^3/uL (0-0.8); Eosinophils % (auto) 1.4 % (0.0-7.0); Hematocrit 31.5 % (41.0-53.0); Hemoglobin 11.5 g/dL (13.5-17.5); Lymphocytes # (auto) 1.5 10 ^3/uL (0.4-5.4); Lymphocytes % (auto) 19.6 % (10.0-50.0); Mean Corpuscular Volume 92.7 fL (80.0-100.0); Monocytes # (auto) 0.6 10 ^3/uL (0-1.3); Monocytes % (auto) 7.8 % (0.0-12.0); Neutrophils # (auto) 5.5 10 ^3/uL (1.6-8.6); Neutrophils % (auto) 70.6 % (37.0-80.0); Nucleated Red Blood Cells % 0.1 %; Platelet Count (auto) 371 10^3/uL (140-450); Red Cell Distribution Width 13.3 % (11.8-14.3); White Blood Cell 7.7 10^3/uL (4.4-10.8)
[2024-12-23 12:36] LABS: Mean Corpuscular Hgb Conc. 36.7 g/dL (32.0-36.0)
[2024-12-23 12:42] LABS: Alanine Aminotransferase 17 U/L (7-40); Albumin 4.1 g/dL (3.2-4.8); Alkaline Phosphatase 100 U/L (46-116); Anion Gap 12 (5-15); Aspartate Aminotransferase 17 U/L (<34); BUN/Creatinine Ratio 11.7 (10.0-20.0); Bilirubin, Total 0.4 mg/dL (0.2-1.0); Potassium 3.7 mmol/L (3.5-5.1); Total Protein 7.6 g/dL (5.7-8.2)
[2024-12-23 12:43] LABS: Blood Urea Nitrogen 7 mg/dL (9-23); Calcium 8.5 mg/dL (8.7-10.4); Carbon Dioxide 20 mmol/L (20-31); Chloride 97 mmol/L (98-107); Glucose 160 mg/dL (74-106); Sodium 129 mmol/L (136-145)
--- NOTE | 2024-12-23 12:57 | DVH ---
XY R FOOT 3 VIEW XRAY, INDICATION: foot wound TECHNICAL DATA: Frontal, oblique and lateral views were obtained of the right foot. COMPARISON: XY R FOOT 2 VIEW XRAY on DOS: 12/03/24, XY R FOOT 3 VIEW XRAY on DOS: 11/22/24 FINDINGS: No fracture is identified. Joint spaces are maintained. Alignment is anatomic. The hallux sesamoids a ppear normal. Soft tissue defect at the heel. IMPRESSION: Soft tissue defect at the heel. No acute fracture or dislocation of the right foot.
[2024-12-23 13:04] LABS: CRP High Sensitivity 5.73 mg/dL (<1.0)
--- NOTE | 2024-12-23 13:14 | DVH ---
Right lower extremity venous duplex Clinical History: FOOT INFECTION SWELLING Comparison: None Findings and technique: Duplex doppler evaluation of the deep venous system of the right lower extremity from the common femo ral vein to the popliteal vein including color doppler and spectral/pulsed waveform analysis was perf ormed. The common femoral vein demonstrates appropriate compressibility and waveform variability. There is compressibility/patency of the great saphenous vein at the proximal thigh. The femoral vein demonstrates appropriate compressibility and waveform variability. The deep femoral vein demonstrates appropriate compressibility and waveform variability. The popliteal vein demonstrates appropriate compressibility and waveform variability. There is normal compressibility at the tibioperoneal trunk. Impression: 1. No right femoropopliteal venous thrombosis. 2. If clinical concern/symptoms persist or worsen, short-interval follow-up study is suggested.
[2024-12-23 13:21] LABS: Erythrocyte Sedimentation Rate 104 mm/hr (0-20)
--- NOTE | 2024-12-23 14:01 | DVH ---
EXAM: CT RT LOWER EXTREMITY W CON HISTORY: FOOT INFECTION COMPARISON: Right lower extremity CT scan dated 11/23/2024; right foot radiographs dated 12/23/2024 a nd 12/03/2024. TECHNIQUE: Noncontrast axial CT images of the right foot and ankle were performed. Sagittal and coron al reformatted images were obtained. This CT exam was performed using one or more of the following do se reduction techniques: Automated exposure control, adjustment of the mA and/or kv according to brodie ent size, or the use of iterative reconstruction techniques. Radiation Dose Information: CT Dose: CTD I volume is 7.75 mGy. Dose-length product is 213.85 mGy*cm FINDINGS/IMPRESSION: 1. No acute fracture of the right foot. 2. Plantar hindfoot ulceration with gas tracking through the soft tissues as deep as the cortex of th e calcaneus, with new erosions of the plantar aspect of the calcaneal tuberosity, greater medially, c onsistent with osteomyelitis. 3. Cystic appearance of the calcaneus deep to the calcaneal sulcus is stable. Additionally, there is lucency of the body of the calcaneus likely communicating with the aforementioned cyst. These findi ngs are likely benign and not related to infectious or other pathologic process. 4. Mild thickening of the achilles tendon suggestive of tendinosis. 5. Mild hallux valgus and chronic subcortical erosions of the 1st metatarsal head. 6. 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 7. Diffuse subcutaneous edema may be due to cellulitis, venous stasis, or other etiology.
[2024-12-23] MEDS: IOHEXOL 300 MG/ML 100ML BOTTLE IJ ONE (14:42)
[2024-12-23] MEDS: VANCOMYCIN 1GM/200ML PM 250 ML IV ONE (14:48)
[2024-12-23] MEDS: SODIUM CHLORIDE 0.9% 1,000 ML IV ONE ×2 (14:52→16:55)
[2024-12-23] MEDS: PIPERACILLIN-TAZOB 3.375GM 100 ML IV ONE (16:18)
[2024-12-23] MEDS ORDERED: ONDANSETRON HCL 4 MG/2 ML VIAL IV PRN (21:00)
[2024-12-23] MEDS ORDERED: VANCOMYCIN PER PHARMACY 0 MG IV SCH (21:00)
[2024-12-23] MEDS ORDERED: MORPHINE SULFATE INJ 2 MG/ml SYRG IV PRN ×2 (21:00→22:45)
[2024-12-23] MEDS ORDERED: DOCUSATE SOD 100 MG CAP PO PRN (21:00)
[2024-12-23 21:10] LABS: Urine Bacteria None Seen /hpf (None Seen)
[2024-12-23 21:18] LABS: Urine Blood Negative /uL (Negative); Urine Clarity Clear (Clear); Urine Color Colorless (Yellow); Urine Protein, UAD Negative (Negative); Urine Squamous Epithelial Cell None Seen /hpf (<5); Urine Urobilinogen Normal (Negative)
[2024-12-23 21:20] LABS: Urine WBC < 1 /HPF (0-3)
[2024-12-23] MEDS: HYDROcodone-ACET 5/325MG TAB PO ONE (21:24)
[2024-12-23] MEDS: SODIUM CHLORIDE 0.9% 1,000 ML IV SCH (21:36)
[2024-12-23] MEDS: VANCOMYCIN 1GM/200ML PM 250 ML IV SCH (22:24)
--- NOTE | 2024-12-23 22:43 | DVHHP2 ---
History of Present Illness Reason for Visit: Osteomyelitis, right foot History of Present Illness The patient is a 54-year-old male with past medical history of [place] who presented to [facility] ED with complaint of right foot wound. Patient was seen in this ED on 12/03/24 due to blister on right foot, was admitted, given IV antibiotics and discharged on 12/12/24, instructed to perform self dressing change due to insurance issues, had to follow up with discharge clinic. Patient returned to ED today due to RT heel pain, rating pain 10/10 numeric scale, getting worse that prompted this visit. Patient was seen and evaluated in the ED, laboratory data shows WBC 7.7, platelets 371, ESR 104, C-reactive protein 5.73, sodium 129, potassium 3.7, BUN 7, creatinine 0.60, glucose 160, hemoglobin A1c 6.8, calcium 8.5, blood pressure 141/84, heart rate 84, temperature 98.7 F, O2 saturation 95% on room air. Right lower extremity CT revealing plantar hindfoot ulceration with gas tracking through the soft tissue as deep as the cortex of the calcaneus, with new erosions of the plantar aspect of the calcaneal tuberosity, greater medially, consistent with osteomyelitis. foot Patient was started on IV antibiotic regimen Zosyn, please see medication orders section in the computer. On my assessment, patient denied chest pain, no headache, no dizziness, no shortness of breath, no diaphoresis, no nausea, no vomiting, no fever, no chills. Patient was admitted for further evaluation and medical management. Past Medical History [place] Past Surgical History RT eye surgery Family History Reviewed, noncontributory to the management of this case. Past Social History The patient lives at home, denies smoking, alcohol or illicit drugs abuse. Review of Systems Constitutional: Yes: Weakness; No: Fever, Chills, Sweats, Malaise, Other Eyes: Other (Right eye prosthesis); No: Pain, Vision change, Conjunctivae inflammation, Eyelid inflammation, Redness ENT: No: Ear pain, Ear discharge, Nose pain, Nose discharge, Nose congestion, Mouth pain, Mouth swelling, Throat pain, Throat swelling, Other Respiratory: No: Cough, Dry, Shortness of breath, SOB with excertion, Wheezing, Hemoptysis, Pleuritic Pain, Sputum, Wheezing, Other Cardiovascular: No: Chest Pain, Palpitations, Orthopnea, Paroxysmal Noc. Dyspnea, Edema, Lt Headedness, Other Gastrointestinal: No: Nausea, Vomiting, Abdominal Pain, Diarrhea, Constipation, Melena, Hematochezia, Other Genitourinary: No Dysuria, No Frequency, No Incontinence, No Hematuria, No Retention, No Other Musculoskeletal: other (Right heel pain), leg pain (Right); No: neck pain, shoulder pain, arm pain, back pain, hand pain, foot pain Skin: Lesions (Right foot), Other (Right foot wound); No: Rash, Jaundice, Bruising Neurological: No: Weakness, Numbness, Incoordination, Change in speech, Confusion, Seizures, Other Allergies: Coded Allergies: NO KNOWN ALLERGIES (Unverified , 11/22/24) Medications Current Medications Medications Dose Ordered Sig/Rei Route Start Time Stop Time Status Last Admin Dose Admin Vancomycin HCl 0 ml @ 0 mls/hr UD IV 12/23/24 21:00 UNV Piperacillin Sod/ Tazobactam Sod 100 ml @ 25 mls/hr Q8HR IV 12/23/24 22:00 Hydralazine HCl 10 mg Q6HP PRN IV 12/23/24 21:00 Losartan Potassium 50 mg DAILY PO 12/24/24 10:00 Sodium Chloride 1,000 ml @ 120 mls/hr Q8H20M IV 12/23/24 21:00 12/23/24 21:36 120 MLS/HR Acetaminophen/ Hydrocodone Bitart 1 tab Q4HP PRN PO 12/23/24 21:00 Ondansetron HCl 4 mg Q4HP PRN IV 12/23/24 21:00 Docusate Sodium 100 mg BIDPRN PRN PO 12/23/24 21:00 Acetaminophen 650 mg Q6HP PRN PO 12/23/24 21:00 Morphine Sulfate 2 mg Q4HPRN PRN IV 12/23/24 21:00 Vancomycin HCl 250 ml @ 250 mls/hr Q1H IV 12/23/24 21:30 12/23/24 23:29 12/23/24 22:24 250 MLS/HR Vancomycin HCl 250 ml @ 200 mls/hr Q12H IV 12/24/24 06:00 Exam Vital Signs Vital Signs Date Time Temp Pulse Resp B/P (MAP) Pulse Ox O2 Delivery O2 Flow Rate FiO2 12/23/24 17:30 84 18 141/84 (103) 95 12/23/24 15:45 Room Air* 0 21 12/23/24 14:55 98.7 98.7 General Appearance: Alert, Oriented X3, Cooperative, No acute distress HEENT: Atraumatic, PERRLA (Left eye), EOMI, Mucous membr. moist/pink Respiratory: Clear to auscultation, Normal air movement Cardiovascular: Regular rate, Normal S1, Normal S2, No murmurs Abdominal: Normal bowel sounds, Soft, No tenderness, No hepatospenomegaly, No masses Extremities: No clubbing, No cyanosis, No edema, Normal pulses, Other (Right foot tenderness/swelling) Skin: No rashes, No breakdown, No significant lesion Neuro: Normal speech, Normal tone, Sensation intact, Cranial nerves 3-12 NL, Reflexes 2+, Other (Unsteady gait) Psych/Mental Status: Mental status NL, Mood NL Labs/Xrays Labs Test 12/23/24 21:00 12/23/24 12:00 Range/Units Urine Color Colorless Yellow Urine Clarity Clear Clear Urine pH 5.0 5.0-9.0 Urine Specific [place] 1.010 1.001-1.035 Urine Protein Negative Negative Urine Ketones Negative Negative Urine Blood Negative Negative /uL Urine Nitrite Negative Negative Urine Bilirubin Negative Negative Urine Urobilinogen Normal Negative mg/dL Urine Leukocyte Esterase Negative Negative /uL Urine RBC <1 0 - 3 /hpf Urine Microscopic WBC < 1 0-3 /HPF Urine Squamous Epithelial Cells None seen <5 /hpf Urine Bacteria None seen None Seen /hpf Urine Glucose Normal Normal mg/dL White Blood Count 7.7 4.4-10.8 10^3/uL Red Blood Count 3.40 L 4.5-5.90 10^6/uL Hemoglobin 11.5 L 13.5-17.5 g/dL Hematocrit 31.5 L 41.0-53.0 % Mean Corpuscular Volume 92.7 80.0-100.0 fL Mean Corpuscular Hemoglobin 34.0 H 28.0-32.0 pg Mean Corpuscular Hemoglobin Concent 36.7 H 32.0-36.0 g/dL Red Cell Distribution Width 13.3 11.8-14.3 % Platelet Count 371 140-450 10^3/uL Mean Platelet Volume 6.9 6.9-10.8 fL Neutrophils (%) (Auto) 70.6 37.0-80.0 % Lymphocytes (%) (Auto) 19.6 10.0-50.0 % Monocytes (%) (Auto) 7.8 0.0-12.0 % Eosinophils (%) (Auto) 1.4 0.0-7.0 % Basophils (%) (Auto) 0.6 0.0-2.0 % Neutrophils # (Auto) 5.5 1.6-8.6 10 ^3/uL Lymphocytes # (Auto) 1.5 0.4-5.4 10 ^3/uL Monocytes # (Auto) 0.6 0-1.3 10 ^3/uL Eosinophils # (Auto) 0.1 0-0.8 10 ^3/uL Basophils # (Auto) 0 0-0.2 10 ^3/uL Nucleated Red Blood Cells 0.1 % Erythrocyte Sedimentation Rate 104 H 0-20 mm/hr Sodium Level 129 L 136-145 mmol/L Potassium Level 3.7 3.5-5.1 mmol/L Chloride Level 97 L 98-107 mmol/L Carbon Dioxide Level 20 20-31 mmol/L Anion Gap 12 5-15 Blood Urea Nitrogen 7 L 9-23 mg/dL Creatinine 0.60 L 0.700-1.30 mg/dL Glomerular Filtration Rate Calc 114 >90 mL/min BUN/Creatinine Ratio 11.7 10.0-20.0 Serum Glucose 160 H 74-106 mg/dL Hemoglobin A1c 6.8 H <5.7 % A1C Lactic Acid Level 1.7 0.4-2.0 mmol/L Calcium Level 8.5 L 8.7-10.4 mg/dL Total Bilirubin 0.4 0.2-1.0 mg/dL Aspartate Amino Transferase (AST) 17 <34 U/L Alanine Aminotransferase (ALT) 17 7-40 U/L Alkaline Phosphatase 100 46-116 U/L C-Reactive Protein High Sensitivity 5.73 H <1.0 mg/dL Total Protein 7.6 5.7-8.2 g/dL Albumin 4.1 3.2-4.8 g/dL PATIENT: FLORINA NICKERSON ACCT: [id number] UNIT: [id number] : 1970 LOC: ER ROOM / BED: / AGE / SEX: 54 / M ADM STATUS: REG ER SERVICE 1142 ORDERING PHYSICIAN: CRYSTAL MURRAY DO PROCEDURE(s): RTLEXW - RT LOWER EXTREMITY W CON REASON: FOOT INFECTION ORDER NUMBER(s): [id number], ACCESSION NUMBER(s): [id number] EXAM: CT RT LOWER EXTREMITY W CON HISTORY: FOOT INFECTION COMPARISON: Right lower extremity CT scan dated 11/23/2024; right foot radiographs dated 12/23/2024 and 12/03/2024. TECHNIQUE: Noncontrast axial CT images of the right foot and ankle were performed. Sagittal and coronal reformatted images were obtained. This CT exam was performed using one or more of the following dose reduction techniques: Automated exposure control, adjustment of the mA and/or kv according to patient size, or the use of iterative reconstruction techniques. Radiation Dose Information: CT Dose: CTDI volume is 7.75 mGy. Dose-length product is 213.85 mGy*cm FINDINGS/IMPRESSION: 1. No acute fracture of the right foot. 2. Plantar hindfoot ulceration with gas tracking through the soft tissues as deep as the cortex of the calcaneus, with new erosions of the plantar aspect of the calcaneal tuberosity, greater medially, consistent with osteomyelitis. 3. Cystic appearance of the calcaneus deep to the calcaneal sulcus is stable. Additionally, there is lucency of the body of the calcaneus likely communicating with the aforementioned cyst. These findings are likely benign and not related to infectious or other pathologic process. 4. Mild thickening of the achilles tendon suggestive of tendinosis. 5. Mild hallux valgus and chronic subcortical erosions of the 1st metatarsal head. 6. 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 7. Diffuse subcutaneous edema may be due to cellulitis, venous stasis, or other etiology. ORDERING PHYSICIAN: CRYSTAL MURRAY DO PROCEDURE(s): RLDVT - RT Lower DVT REASON: FOOT INFECTION SWELLING ORDER NUMBER(s): [id number], ACCESSION NUMBER(s): [id number] Right lower extremity venous duplex Clinical History: FOOT INFECTION SWELLING Comparison: None Findings and technique: Duplex doppler evaluation of the deep venous system of the right lower extremity from the common femoral vein to the popliteal vein including color doppler and spectral/pulsed waveform analysis was performed. The common femoral vein demonstrates appropriate compressibility and waveform variability. There is compressibility/patency of the great saphenous vein at the proximal thigh. The femoral vein demonstrates appropriate compressibility and waveform variability. The deep femoral vein demonstrates appropriate compressibility and waveform variability. The popliteal vein demonstrates appropriate compressibility and waveform variability. There is normal compressibility at the tibioperoneal trunk. Impression: 1. No right femoropopliteal venous thrombosis. 2. If clinical concern/symptoms persist or worsen, short-interval follow-up study is suggested. ORDERING PHYSICIAN: CRYSTAL MURRAY DO PROCEDURE(s): RFOOT - R FOOT 3 VIEW XRAY REASON: foot wound ORDER NUMBER(s): [id number], ACCESSION NUMBER(s): [id number] XY R FOOT 3 VIEW XRAY, INDICATION: foot wound TECHNICAL DATA: Frontal, oblique and lateral views were obtained of the right foot. COMPARISON: XY R FOOT 2 VIEW XRAY on DOS: 12/03/24, XY R FOOT 3 VIEW XRAY on DOS: 11/22/24 FINDINGS: No fracture is identified. Joint spaces are maintained. Alignment is anatomic. The hallux sesamoids appear normal. Soft tissue defect at the heel. IMPRESSION: Soft tissue defect at the heel. No acute fracture or dislocation of the right foot. Assessment/Plan Assessment/Plan Osteomyelitis of right foot Cellulitis of right foot Wound of right foot Hyponatremia Generalized weakness Type 2 diabetes mellitus with hyperglycemia Systemic inflammatory response syndrome Plan 1. Admit to telemetry unit 2. Breathing treatment 3. Pain control management 4. IV antibiotic management 5. Management of fluids and electrolytes 6. Consultation for hospitalist/wound care 7. Diagnostic test right foot CT 8. DVT prophylaxis -on Lovenox 9. Repeat labs CBC, CMP in a.m. 10. Home medication reviewed and reconciled 11. Continue with current medical management 12. Treatment plan discussed with patient and RN. Patient verbalized understanding. Plan discussed with: Patient, Other (RN) My Orders Orders - VICKY FOWLER DNP Procedure Category Date Status Time Vancomycin Per PHA 12/23/24 Pending Pharmacy 21:00 Piperacillin-Tazob PHA 12/23/24 In Process 3.375gm (Zosyn 3.375g 22:00 Hydralazine Injection PHA 12/23/24 In Process (Apresoline Inject 21:00 Losartan Tablet PHA 12/24/24 In Process (Cozaar Tablet) 10:00 Allergies EDDIE 12/23/24 In Process 21:00 Code Status CODE 12/23/24 Transmitted 21:00 Sodium Chloride 0.9% PHA 12/23/24 In Process 21:00 Oxygen Per Hour RT 12/23/24 Transmitted 21:00 Hydrocodone-Acet PHA 12/23/24 In Process 5/325mg Tab ([place] 21:00 Ondansetron Hcl PHA 12/23/24 In Process (Zofran) 21:00 Docusate Sodium PHA 12/23/24 In Process Capsule (Colace 21:00 Complete Blood Count LAB 12/24/24 Verified 04:00 Comprehensive LAB 12/24/24 Verified Metabolic Panel 04:00 Cardiac DIET 12/24/24 Transmitted Diet-2gna,Lofat,Lochol Breakfast Condition: Serious EDDIE 12/23/24 In Process 21:00 Acetaminophen Tablet PHA 12/23/24 In Process (Tylenol Tablet) 21:00 Bedrest With Bathroom EDDIE 12/23/24 In Process Privileg 21:00 Morphine Sulfate PHA 12/23/24 In Process Injection 21:00 Sequential EDDIE 12/23/24 In Process Compression Device Vancomycin 1gm/200ml PHA 12/23/24 In Process Pm 21:30 Vancomycin PHA 12/24/24 In Process 1.25gm/250ml 06:00 Vancomycin,Trough LAB 12/25/24 Verified 05:00 Creatinine LAB 12/25/24 Verified 05:00 Vancomycin Per EDDIE 12/25/24 In Process Pharmacy Protoc 06:00 Problem List: (1) Osteomyelitis of right foot (2) Cellulitis of right foot (3) Wound of right foot (4) Hyponatremia (5) Generalized weakness (6) Type 2 diabetes mellitus with hyperglycemia (7) Systemic inflammatory response syndrome (SIRS) Date of Service: Dec 23, 2024 Billing Provider: VICKY FOWLER DNP Common Visit Codes: [id number] INP/OBS CARE (HIGH) VICKY FOWLER DNP Dec 23, 2024 22:43
[2024-12-23] MEDS ORDERED: NITROGLYCERIN 0.4 MG SL TAB SL PRN (22:45)
[2024-12-24] MEDS: PIPERACILLIN-TAZOB 3.375GM 100 ML IV SCH ×2 (01:00→09:44)
[2024-12-24] MEDS ORDERED: DEXTROSE (50%) 50ML SYRG IV PRN (01:15)
[2024-12-24] MEDS: VANCOMYCIN 1.25GM/250ML 250 ML IV SCH (06:12)
[2024-12-24] MEDS: InsuLIN REG 1unit/0.01ml Soln (100units/ml) SC SCH (07:00)
[2024-12-24 07:23] LABS: Basophils # (auto) 0.1 10 ^3/uL (0-0.2); Basophils % (auto) 0.9 % (0.0-2.0); Eosinophils # (auto) 0.2 10 ^3/uL (0-0.8); Eosinophils % (auto) 2.5 % (0.0-7.0); Hematocrit 31.9 % (41.0-53.0); Hemoglobin 11.4 g/dL (13.5-17.5); Lymphocytes # (auto) 0.9 10 ^3/uL (0.4-5.4); Lymphocytes % (auto) 12.8 % (10.0-50.0); Mean Corpuscular Hemoglobin 33.3 pg (28.0-32.0); Mean Corpuscular Hgb Conc. 35.6 g/dL (32.0-36.0); Mean Corpuscular Volume 93.6 fL (80.0-100.0); Monocytes # (auto) 0.5 10 ^3/uL (0-1.3); Monocytes % (auto) 7.6 % (0.0-12.0); Neutrophils # (auto) 5.2 10 ^3/uL (1.6-8.6); Neutrophils % (auto) 76.2 % (37.0-80.0); Platelet Count (auto) 327 10^3/uL (140-450); Red Blood Cells 3.41 10^6/uL (4.5-5.90); Red Cell Distribution Width 13.3 % (11.8-14.3); White Blood Cell 6.8 10^3/uL (4.4-10.8)
[2024-12-24] MEDS: ACCU-CHEK COMFORT CURVE STRIP VI SCH (07:27)
[2024-12-24 07:36] LABS: Alanine Aminotransferase 12 U/L (7-40); Albumin 3.6 g/dL (3.2-4.8); Alkaline Phosphatase 88 U/L (46-116); Anion Gap 7 (5-15); Aspartate Aminotransferase 13 U/L (<34); BUN/Creatinine Ratio 8.8 (10.0-20.0); Bilirubin, Total 0.5 mg/dL (0.2-1.0); Calcium 8.9 mg/dL (8.7-10.4); Carbon Dioxide 26 mmol/L (20-31); Chloride 106 mmol/L (98-107); Potassium 4.1 mmol/L (3.5-5.1); Sodium 139 mmol/L (136-145); Total Protein 6.9 g/dL (5.7-8.2)
[2024-12-24 07:50] LABS: Blood Urea Nitrogen 6 mg/dL (9-23); Glucose 158 mg/dL (74-106)
[2024-12-24 08:01] VITALS: PULSE 83; RESP 16; O2SAT 96
[2024-12-24] MEDS: LOSARTAN POTASSIUM 50 MG TAB PO SCH (10:29)
[2024-12-24] MEDS: ENOXAPARIN SOD 40 MG/0.4 ML SYRINGE SC SCH (10:30)
[2024-12-24] MEDS: hydrALAZINE HCL 20 MG/ML VL IV PRN (14:14)
[2024-12-24 15:08] VITALS: BP 162/86; PULSE 81; RESP 20; TEMP 98.2; O2SAT 100
[2024-12-24 15:31] VITALS: BP 156/91; PULSE 82; RESP 18; TEMP 98.2; O2SAT 100
[2024-12-24 17:00] VITALS: BP 156/91; PULSE 82; RESP 20; TEMP 98.5; O2SAT 100
[2024-12-24] MEDS: HYDROcodone-ACET 5/325MG TAB PO PRN (17:38)
--- NOTE | 2024-12-24 19:08 | DVHPN2 ---
Subjective I am assuming the care of the patient from today onwards. This is a follow up on 54-year-old male with a known history of hypertension, chronic alcoholism, recent history of bilateral foot blisters status post I and D of the right heel for osteomyelitis on11/25, then again admission was discharged on December 12 presented to the hospital with a right heel wound found to have suspected cellulitis/osteomyelitis of the right foot Reviewed: Care Plan Changes from previous H/P or p: No Changes Eyes: No Pain, No Vision change, No Conjunctivae inflammation, No Eyelid inflammation; Other (Right eye prosthesis); No Redness ENT: No Ear pain, No Ear discharge, No Nose pain, No Nose discharge, No Nose congestion, No Mouth pain, No Mouth swelling, No Throat pain, No Throat swelling, No Other Cardiovascular: No Chest Pain, No Palpitations, No Orthopnea, No Paroxysmal Noc. Dyspnea, No Edema, No Lt Headedness, No Other Respiratory: No Cough, No Dry, No Shortness of breath, No SOB with excertion, No Wheezing, No Hemoptysis, No Pleuritic Pain, No Sputum, No Other Gastrointestinal: No Nausea, No Vomiting, No Abdominal Pain, No Diarrhea, No Constipation, No Melena, No Hematochezia, No Other Genitourinary: No Dysuria, No Frequency, No Incontinence, No Hematuria, No Retention, No Other Musculoskeletal: other (Right heel pain); No neck pain, No shoulder pain, No arm pain, No back pain, No hand pain; leg pain (Right); No foot pain Skin: No Rash; Lesions (Right foot); No Jaundice, No Bruising; Other (Right foot wound) Objective Vitals Vital Signs Date Time Temp Pulse Resp B/P (MAP) Pulse Ox O2 Delivery O2 Flow Rate FiO2 12/24/24 17:00 98.5 82 20 156/91 (112) 100 98.5 12/24/24 15:31 Room Air* 0 21 Intake/Output Intake and Output 12/24/24 07:00 Intake Total 2170 ml Balance 2170 ml IV Total 2170 ml Exam HEENT pupils are reactive Neck is supple CV is S1-S2 regular rate and rhythm Respiratory are clear GI positive bowel sound Extremity no edema [employer] no motor deficit Medications Current Medications Medications Dose Ordered Sig/Rei Route Start Time Stop Time Status Last Admin Dose Admin Vancomycin HCl 0 ml @ 0 mls/hr UD IV 12/23/24 21:00 Hydralazine HCl 10 mg Q6HP PRN IV 12/23/24 21:00 12/24/24 14:14 10 MG Losartan Potassium 50 mg DAILY PO 12/24/24 10:00 12/24/24 10:29 50 MG Sodium Chloride 1,000 ml @ 120 mls/hr Q8H20M IV 12/23/24 21:00 12/24/24 14:08 120 MLS/HR Acetaminophen/ Hydrocodone Bitart 1 tab Q4HP PRN PO 12/23/24 21:00 12/24/24 17:38 1 TAB Ondansetron HCl 4 mg Q4HP PRN IV 12/23/24 21:00 Docusate Sodium 100 mg BIDPRN PRN PO 12/23/24 21:00 Acetaminophen 650 mg Q6HP PRN PO 12/23/24 21:00 Morphine Sulfate 2 mg Q4HPRN PRN IV 12/23/24 21:00 Vancomycin HCl 250 ml @ 200 mls/hr Q12H IV 12/24/24 06:00 12/24/24 18:13 200 MLS/HR Nitroglycerin 0.4 mg Q5MINP PRN SL 12/23/24 22:45 Morphine Sulfate 2 mg Q30M PRN IV 12/23/24 22:45 Enoxaparin Sodium 40 mg DAILY SC 12/24/24 10:00 12/24/24 10:30 40 MG Diagnostic Test (Pha) 1 strip ACHS 12/24/24 07:00 12/24/24 17:01 1 STRIP Insulin Human Regular ACHS SC 12/24/24 07:00 12/24/24 17:05 4 UNITS Dextrose 50 ml UD PRN IV 12/24/24 01:15 Piperacillin Sod/ Tazobactam Sod 100 ml @ 25 mls/hr Q8H IV 12/24/24 09:00 12/24/24 17:00 25 MLS/HR Laboratory Results Laboratory Tests 12/24/24 07:05 Chemistry Test 12/24/24 07:05 Albumin 3.6 g/dL (3.2-4.8) Calcium Level 8.9 mg/dL (8.7-10.4) Total Protein 6.9 g/dL (5.7-8.2) LFT Test 12/24/24 07:05 Alanine Aminotransferase (ALT) 12 U/L (7-40) Alkaline Phosphatase 88 U/L (46-116) Aspartate Amino Transferase (AST) 13 U/L (<34) Total Bilirubin 0.5 mg/dL (0.2-1.0) Urinalysis Test 12/23/24 21:00 Urine Color Colorless (Yellow) Urine Clarity Clear (Clear) Urine pH 5.0 (5.0-9.0) Urine Specific [place] 1.010 (1.001-1.035) Urine Protein Negative (Negative) Urine Ketones Negative (Negative) Urine Blood Negative /uL (Negative) Urine Nitrite Negative (Negative) Urine Bilirubin Negative (Negative) Urine Urobilinogen Normal mg/dL (Negative) Urine Leukocyte Esterase Negative /uL (Negative) Urine RBC <1 /hpf (0 - 3) Urine Microscopic WBC < 1 /HPF (0-3) Urine Squamous Epithelial Cells None seen /hpf (<5) Urine Bacteria None seen /hpf (None Seen) Urine Glucose Normal mg/dL (Normal) Microbiology Microbiology Date/Time Source Procedure Growth Status 12/23/24 12:00 Blood Blood Culture - Preliminary NO GROWTH AFTER 24 HOURS OF INCUBATION. Resulted Assessment/Plan Assessment/Plan 54-year-old male with a known history of hypertension, dyslipidemia, peripheral neuropathy initially presented to the hospital with a right foot wound found to have 1. Acute right heel osteomyelitis 2. Right foot cellulitis 3. Hypertension 4. Diabetes type 2 5. Chronic alcoholism -IV antibiotics, infectious disease consultation, Podiatry Services consultation. Plan discussed with: Patient My Orders Orders - MESERET LLOYD MD Procedure Category Date Status Time * Infectious [place]- CONS 12/24/24 Transmitted Benji Myers 14:34 Podiatry Consult CONS 12/24/24 Transmitted 16:19 Date of Service: Dec 24, 2024 Billing Provider: MESERET LLOYD MD Common Visit Codes: [id number] INP/OBS CARE(MOD) MESERET LLOYD MD Dec 24, 2024 19:08
[2024-12-24 20:00] VITALS: PULSE 85; PULSE 86; RESP 19; O2SAT 98
[2024-12-24 21:00] VITALS: BP 130/51; PULSE 86; RESP 19; TEMP 98.7; O2SAT 98
[2024-12-25] VITALS (8 sets, daily range): BP systolic 132–145; BP diastolic 69–92; PULSE 18–87; RESP 16–98; TEMP 97.2–98.4; O2SAT 97–99
--- NOTE | 2024-12-25 11:13 | DVH ---
MRI RIGHT HEEL WITHOUT CONTRAST HISTORY: r/o OM COMPARISON: MRI MRI R FOOT WO CONTRAST on DOS: 11/24/24 CONTRAST: none TECHNIQUE: Standard MR imaging of the right heel without contrast. FINDINGS: There is a large plantar heel soft tissue ulcer with sinus tract extending into the inferior calcaneu s and plantar fascia. There is patchy marrow amber scattered throughout the heel, most notable along t he inferior aspect of the calcaneus. There is patchy marrow edema throughout the bones within the mid foot and to lesser degree the anterior talus. The mid to distal plantar fascia is unremarkable. Mild tendinosis of the Achilles tendon. There is thickening of the plantar plate at the 1st metatarsophalangeal joint with associated degener ative cystic change. No additional areas of osteomyelitis identified. There is diffuse subcutaneous edema with edema throughout the intrinsic muscles of the foot. There are no focal fluid collections. IMPRESSION: 1. Large plantar heel ulcer with sinus tract and associated osteomyelitis of the calcaneus. No absce ss. 2. Diffuse subcutaneous and intrinsic muscle edema 3. Stress related changes- bone edema within the midfoot
[2024-12-25] MEDS: VANCOMYCIN 1.25GM/250ML 250 ML IV SCH (13:42)
--- NOTE | 2024-12-25 16:10 | DVHPN2 ---
Subjective This is a follow up on 54-year-old male with a known history of hypertension, chronic alcoholism, recent history of bilateral foot blisters status post I and D of the right heel for osteomyelitis on11/25, then again admission was discharged on December 12 presented to the hospital with a right heel wound found to have suspected cellulitis/osteomyelitis of the right foot. Reviewed: Care Plan Changes from previous H/P or p: No Changes Eyes: No Pain, No Vision change, No Conjunctivae inflammation, No Eyelid inflammation; Other (Right eye prosthesis); No Redness ENT: No Ear pain, No Ear discharge, No Nose pain, No Nose discharge, No Nose congestion, No Mouth pain, No Mouth swelling, No Throat pain, No Throat swelling, No Other Cardiovascular: No Chest Pain, No Palpitations, No Orthopnea, No Paroxysmal Noc. Dyspnea, No Edema, No Lt Headedness, No Other Respiratory: No Cough, No Dry, No Shortness of breath, No SOB with excertion, No Wheezing, No Hemoptysis, No Pleuritic Pain, No Sputum, No Other Gastrointestinal: No Nausea, No Vomiting, No Abdominal Pain, No Diarrhea, No Constipation, No Melena, No Hematochezia, No Other Genitourinary: No Dysuria, No Frequency, No Incontinence, No Hematuria, No Retention, No Other Musculoskeletal: other (Right heel pain); No neck pain, No shoulder pain, No arm pain, No back pain, No hand pain; leg pain (Right); No foot pain Skin: No Rash; Lesions (Right foot); No Jaundice, No Bruising; Other (Right foot wound) Objective Vitals Vital Signs Date Time Temp Pulse Resp B/P (MAP) Pulse Ox O2 Delivery O2 Flow Rate FiO2 12/25/24 13:00 97.2 74 18 133/83 (100) 99 97.2 12/25/24 08:00 Room Air* 0 21 Intake/Output Intake and Output 12/25/24 07:00 Intake Total 2910 ml Output Total 1000 ml Balance 1910 ml Intake Oral 1420 ml IV Total 1490 ml Output Urine Total 1000 ml # Voids 1 # Bowel Movements 2 Exam HEENT pupils are reactive Neck is supple CV is S1-S2 regular rate and rhythm Respiratory are clear GI positive bowel sound Extremity no edema PATIENT RELATIONS LIAISON no motor deficit Medications Current Medications Medications Dose Ordered Sig/Rei Route Start Time Stop Time Status Last Admin Dose Admin Vancomycin HCl 0 ml @ 0 mls/hr UD IV 12/23/24 21:00 Hydralazine HCl 10 mg Q6HP PRN IV 12/23/24 21:00 12/24/24 14:14 10 MG Losartan Potassium 50 mg DAILY PO 12/24/24 10:00 12/25/24 08:57 50 MG Sodium Chloride 1,000 ml @ 120 mls/hr Q8H20M IV 12/23/24 21:00 12/25/24 06:47 120 MLS/HR Acetaminophen/ Hydrocodone Bitart 1 tab Q4HP PRN PO 12/23/24 21:00 12/25/24 11:07 1 TAB Ondansetron HCl 4 mg Q4HP PRN IV 12/23/24 21:00 Docusate Sodium 100 mg BIDPRN PRN PO 12/23/24 21:00 Acetaminophen 650 mg Q6HP PRN PO 12/23/24 21:00 Morphine Sulfate 2 mg Q4HPRN PRN IV 12/23/24 21:00 Nitroglycerin 0.4 mg Q5MINP PRN SL 12/23/24 22:45 Morphine Sulfate 2 mg Q30M PRN IV 12/23/24 22:45 Enoxaparin Sodium 40 mg DAILY SC 12/24/24 10:00 12/25/24 09:00 40 MG Diagnostic Test (Pha) 1 strip ACHS 12/24/24 07:00 12/25/24 11:07 1 STRIP Insulin Human Regular ACHS SC 12/24/24 07:00 12/25/24 11:10 4 UNITS Dextrose 50 ml UD PRN IV 12/24/24 01:15 Piperacillin Sod/ Tazobactam Sod 100 ml @ 25 mls/hr Q8H IV 12/24/24 09:00 12/25/24 08:57 25 MLS/HR Vancomycin HCl 250 ml @ 200 mls/hr Q8H IV 12/25/24 14:00 12/25/24 13:42 200 MLS/HR Laboratory Results Laboratory Tests 12/24/24 07:05 12/25/24 05:08 Urinalysis Test 12/23/24 21:00 Urine Color Colorless (Yellow) Urine Clarity Clear (Clear) Urine pH 5.0 (5.0-9.0) Urine Specific [place] 1.010 (1.001-1.035) Urine Protein Negative (Negative) Urine Ketones Negative (Negative) Urine Blood Negative /uL (Negative) Urine Nitrite Negative (Negative) Urine Bilirubin Negative (Negative) Urine Urobilinogen Normal mg/dL (Negative) Urine Leukocyte Esterase Negative /uL (Negative) Urine RBC <1 /hpf (0 - 3) Urine Microscopic WBC < 1 /HPF (0-3) Urine Squamous Epithelial Cells None seen /hpf (<5) Urine Bacteria None seen /hpf (None Seen) Urine Glucose Normal mg/dL (Normal) Microbiology Microbiology Date/Time Source Procedure Growth Status 12/24/24 12:15 Foot Gram Stain - Final Resulted 12/24/24 12:15 Foot Wound Culture - Preliminary Resulted 12/23/24 12:00 Blood Blood Culture - Preliminary NO GROWTH AFTER 48 HOURS OF INCUBATION. Resulted Assessment/Plan Assessment/Plan 54-year-old male with a known history of hypertension, dyslipidemia, peripheral neuropathy initially presented to the hospital with a right foot wound found to have 1. Acute right heel osteomyelitis 2. Right foot cellulitis 3. Hypertension 4. Diabetes type 2 5. Chronic alcoholism -IV antibiotics, infectious disease consultation, Podiatry Services consultation. Plan discussed with: Patient My Orders Orders - MESERET LLOYD MD Procedure Category Date Status Time Podiatry Consult CONS 12/24/24 Transmitted 16:19 Date of Service: Dec 25, 2024 Billing Provider: MESERET LLOYD MD Common Visit Codes: [id number] INP/OBS CARE(MOD) MESERET LLOYD MD Dec 25, 2024 16:10
[2024-12-26] VITALS (9 sets, daily range): BP systolic 144–178; BP diastolic 82–99; PULSE 69–85; RESP 11–22; TEMP 97.3–98.5; O2SAT 97–99
--- NOTE | 2024-12-26 08:06 | DVH ---
EXAM: XR Chest, 1 View CLINICAL INDICATION: Pain TECHNIQUE: Frontal view of the chest. COMPARISON: No relevant prior studies available. FINDINGS: LUNGS AND PLEURAL SPACES: Unremarkable. No consolidation. No pneumothorax. HEART: Unremarkable. No cardiomegaly. MEDIASTINUM: Unremarkable. Normal mediastinal contour. BONES/JOINTS: Unremarkable. No acute fracture. IMPRESSION: No acute cardiopulmonary process.
--- NOTE | 2024-12-26 12:59 | DVHINCON2 ---
Date Seen: Dec 26, 2024 Reason for Consultation Right heel wound History of Present Illness The patient is a 54-year-old male with past medical history of [place] who presented to [facility] ED with complaint of right foot wound. Patient was seen in this ED on 12/03/24 due to blister on right foot, was admitted, given IV antibiotics and discharged on 12/12/24, instructed to perform self dressing change due to insurance issues, had to follow up with discharge clinic. Patient returned to ED today due to RT heel pain, rating pain 10/10 numeric scale, getting worse that prompted this visit. Patient was seen and evaluated in the ED, laboratory data shows WBC 7.7, platelets 371, ESR 104, C-reactive protein 5.73, sodium 129, potassium 3.7, BUN 7, creatinine 0.60, glucose 160, hemoglobin A1c 6.8, calcium 8.5, blood pressure 141/84, heart rate 84, temperature 98.7 F, O2 saturation 95% on room air. Right lower extremity CT revealing plantar hin dfoot ulceration with gas tracking through the soft tissue as deep as the cortex of the calcaneus, with new erosions of the plantar aspect of the calcaneal tuberosity, greater medially, consistent with osteomyelitis. foot Patient was started on IV antibiotic regimen Zosyn, please see medication orders section in the computer. On my assessment, patient denied chest pain, no headache, no dizziness, no shortness of breath, no diaphoresis, no nausea, no vomiting, no fever, no chills. Patient was admitted for further evaluation and medical management. Past Medical History See H&P Past Surgical History See H&P Family History: Diabetes mellitus GRANDMA UNCLE Allergies: Coded Allergies: NO KNOWN ALLERGIES (Unverified , 11/22/24) Home Meds Active Scripts Hydrocodone-Acetaminophen (Hydrocodone Bitartrate/AC 5-325 mg) 1 Tab Tab, 1 TAB PO Q4HP PRN, #30 TAB Prov:BOBBY RIVERS MD 11/29/24 Amoxicillin & Pot Clavulanate (AUGMENTIN TABLET) 875 Mg Tb, 875 MG PO BID for 7 Days, #14 TAB 0 Refills Prov:MARGARETTE AGUILAR 11/29/24 Polyethylene Glycol 3350 (Miralax) 17 Gm Pow, 17 GM PO DAILY PRN for 20 Days, #20 POW 0 Refills Prov:MARGARETTE AGUILAR 11/29/24 Nifedipine (Nifedipine Er) 30 Mg Tab, 90 MG PO DAILY for 28 Days, #84 TAB Prov:MARGARETTE AGUILAR [facility] 11/29/24 Losartan Potassium (Losartan Potassium) 50 Mg Tab, 50 MG PO DAILY for 28 Days, #28 TAB Prov:MARGARETTE AGUILAR [facility] 11/29/24 Gabapentin (Gabapentin) 100 Mg Cap, 100 MG PO TID for 28 Days, #84 CAP Prov:MARGARETTE AGUILAR [facility] 11/29/24 Current Medications Current Medications Medications (Trade) Dose Ordered Sig/Rei Route PRN Reason Start Time Stop Time Status Last Admin Vancomycin HCl 250 ml @ 200 mls/hr Q8H IV 12/25/24 14:00 12/26/24 05:22 Vital Signs Vital Signs Date Time Temp Pulse Resp B/P (MAP) Pulse Ox O2 Delivery O2 Flow Rate FiO2 12/26/24 12:36 97.5 69 20 151/94 (113) 97 97.5 12/25/24 20:00 Room Air* 0 21 Physical Exam Dermatological: Skin is dry with mild erythema and some maceration around the wound site No gross deformities noted Mild non-pitting edema present bilaterally Right plantar heel with significant necrosis Vascular: Dorsalis pedis and posterior tibial pulses are 1+ bilaterally Capillary refill is under 2 seconds Skin temperature is warm bilaterally Neurologic: Protective sensation is absent on the plantar forefoot bilaterally Monofilament testing reveals decreased sensation in multiple plantar sites Musculoskeletal: Range of motion at the ankle and MTP joints is within normal limits. Strength is 5/5 in all tested muscle groups. Gait is antalgic due to offloading of the affected limb. Labs/Diagnostic Data Labs Test 12/26/24 12:02 12/25/24 05:08 12/24/24 07:05 12/23/24 21:00 Range/Units POC Glucose 142 H 70-106 mg/dl Creatinine 0.63 L 0.700-1.30 mg/dL Glomerular Filtration Rate Calc 112 >90 mL/min Vancomycin Level Trough 9.5 5-10 ug/mL White Blood Count 6.8 4.4-10.8 10^3/uL Red Blood Count 3.41 L 4.5-5.90 10^6/uL Hemoglobin 11.4 L 13.5-17.5 g/dL Hematocrit 31.9 L 41.0-53.0 % Mean Corpuscular Volume 93.6 80.0-100.0 fL Mean Corpuscular Hemoglobin 33.3 H 28.0-32.0 pg Mean Corpuscular Hemoglobin Concent 35.6 32.0-36.0 g/dL Red Cell Distribution Width 13.3 11.8-14.3 % Platelet Count 327 140-450 10^3/uL Mean Platelet Volume 6.8 L 6.9-10.8 fL Neutrophils (%) (Auto) 76.2 37.0-80.0 % Lymphocytes (%) (Auto) 12.8 10.0-50.0 % Monocytes (%) (Auto) 7.6 0.0-12.0 % Eosinophils (%) (Auto) 2.5 0.0-7.0 % Basophils (%) (Auto) 0.9 0.0-2.0 % Neutrophils # (Auto) 5.2 1.6-8.6 10 ^3/uL Lymphocytes # (Auto) 0.9 0.4-5.4 10 ^3/uL Monocytes # (Auto) 0.5 0-1.3 10 ^3/uL Eosinophils # (Auto) 0.2 0-0.8 10 ^3/uL Basophils # (Auto) 0.1 0-0.2 10 ^3/uL Nucleated Red Blood Cells 0.0 % Sodium Level 139 # 136-145 mmol/L Potassium Level 4.1 3.5-5.1 mmol/L Chloride Level 106 98-107 mmol/L Carbon Dioxide Level 26 20-31 mmol/L Anion Gap 7 5-15 Blood Urea Nitrogen 6 L 9-23 mg/dL BUN/Creatinine Ratio 8.8 L 10.0-20.0 Serum Glucose 158 H 74-106 mg/dL Calcium Level 8.9 8.7-10.4 mg/dL Total Bilirubin 0.5 0.2-1.0 mg/dL Aspartate Amino Transferase (AST) 13 <34 U/L Alanine Aminotransferase (ALT) 12 7-40 U/L Alkaline Phosphatase 88 46-116 U/L Total Protein 6.9 5.7-8.2 g/dL Albumin 3.6 3.2-4.8 g/dL Urine Color Colorless Yellow Urine Clarity Clear Clear Urine pH 5.0 5.0-9.0 Urine Specific [place] 1.010 1.001-1.035 Urine Protein Negative Negative Urine Ketones Negative Negative Urine Blood Negative Negative /uL Urine Nitrite Negative Negative Urine Bilirubin Negative Negative Urine Urobilinogen Normal Negative mg/dL Urine Leukocyte Esterase Negative Negative /uL Urine RBC <1 0 - 3 /hpf Urine Microscopic WBC < 1 0-3 /HPF Urine Squamous Epithelial Cells None seen <5 /hpf Urine Bacteria None seen None Seen /hpf Urine Glucose Normal Normal mg/dL Test 12/23/24 12:00 Range/Units Erythrocyte Sedimentation Rate 104 H 0-20 mm/hr Hemoglobin A1c 6.8 H <5.7 % A1C Lactic Acid Level 1.7 0.4-2.0 mmol/L C-Reactive Protein High Sensitivity 5.73 H <1.0 mg/dL Microbiology Date/Time Source Procedure Growth Status 12/24/24 12:15 Foot Gram Stain - Final Resulted 12/24/24 12:15 Wound Culture - Preliminary Proteus mirabilis Resulted 12/23/24 12:00 Blood Blood Culture - Preliminary NO GROWTH AFTER 72 HOURS OF INCUBATION. Resulted Problems(with codes): (1) Cellulitis (2) Alcohol intoxication (3) Alcohol abuse (4) Hyperglycemia (5) Leukopenia (6) Chest pain (7) Post-op pain (8) Blister of foot, left (9) Blister of foot, right (10) Cellulitis of right lower extremity (11) Eloped from emergency department (12) Osteomyelitis (13) Cellulitis of right foot (14) Wound of foot (15) Generalized weakness (16) Osteomyelitis of right foot (17) Wound of right foot (18) Systemic inflammatory response syndrome (SIRS) (19) Type 2 diabetes mellitus with hyperglycemia (20) Hyponatremia Plan/Recommendation ASSESSMENT: Patient is a 54 year old seen on the floor for a worsening ulcer PLAN: - The patients chart was reviewed, clinical findings were discussed with the patient, the etiologies of the conditions were discussed in detail, and a treatment plan was agreed to at this time, with both oral and written instructions provided. - reviewed advanced imaging - discussed plan is to perform an incision and drainage - patient has been NPO since midnight - take him to the OR today - we will get cultures in the OR - can weightbear as tolerated in postoperative shoe All questions were answered and concerns addressed to the patient's satisfaction. The patient was given the phone number to the clinic and was told how to make contact with the clinic should any concerns or questions arise. Patient understands that if any questions or concerns arise prior to the next appointment, we should be contacted immediately. FOLLOW-UP: Continue to follow while inpatient Plan discussed with: Patient Date of Service: Dec 26, 2024 Billing Provider: RADHA MANNING DPM Common Visit Codes: CONSULT ONLY Consultation Codes: [id number] CONSULT <80MIN RADHA MANNING DPM Dec 26, 2024 12:59
[2024-12-26] MEDS ORDERED: fentaNYL CITRATE 100 MCG/2 ML VL ONE (13:03)
[2024-12-26] MEDS ORDERED: MIDAZOLAM HCL 2MG/2ML 2ml VIAL (1mg/ml) ONE (13:04)
[2024-12-26] MEDS ORDERED: PROPOFOL 10 MG/ML 20 ML IV ONE (13:25)
[2024-12-26] MEDS ORDERED: DexAMETHasone SOD PHOS 10MG/1ML VIAL INJ ONE (13:25)
--- NOTE | 2024-12-26 13:52 | DVHOP2 ---
Operative Report - 2 Report Details Date: 12/26/24 Preop Diagnosis: 1. Right heel osteomyelitis 2. Right heel abscess 3. Right heel cellulitis 4. Of the foot diabetic ulcer down to bone Postop Diagnosis: Same as preop Surgeon: Radha Manning MD Anesthesiologist: See anesthesia Anesthesia: Mac Consent: The patient was informed of the risks and benefits of the procedure. These include but are not limited to complications of anesthesia, postoperative infection, incomplete relief of symptoms, recurrence of symptoms, damage to blood vessels, nerves and tendons, deep venous thrombosis, pulmonary embolism and possible need for repeat surgery in the future. Complications: None Estimated Blood Loss: Minimal Fluids: See anesthesia Findings: Consistent with the diagnosis Indications for Surgery: Worsening right foot wound Name of Procedure Performed 1. Right heel I&D to bone (48185) 2. Right calcaneus bone biopsy () Procedure Details Procedure Details: PRE-PROCEDURE INFORMATION: In the pre-op holding area, the extremity to be operated on was clearly marked and the patient verified correct laterality of the marking. The patient was transferred to the OR table and placed in a supine position. A timeout was performed in which identification of the correct patient, procedure, location, and materials was done. The right foot and leg were prepped and draped in normal sterile fashion. DESCRIPTION OF PROCEDURE: Attention was directed to the right heel where area of fluctuance was noted. An incision was made over this area and was deepened through blunt dissection. The incision was deepened to the level of abscess and bone. Care was taken to the dissection to avoid any neurovascular and tendinous structures. The incision was deepened to the bone, and the abscess appeared to be purulent fluid consistent with pus. The cortices of the bone was then removed with rongeur an all necrotic tissue. After the abscess was drained, the area was irrigated with 3 L normal saline using cysto tubing. Deep cultures were then obtained from the wound. The area was then inspected and any areas of tracking, especially along the tendons were also drained. A bone biopsy was then taken of the right calcaneus which was deepened to the muscle belly and tendons. The bone was then sent to pathology to determine the extent of osteomyelitis. The wound was packed with Betadine-soaked gauze and we will need to be closed at a later date. POSTOPERATIVE INFORMATION: The patient tolerated the above noted procedure and anesthesia well and was transferred to the PACU with vital signs stable, and vascular status intact with capillary refill intact to all digits. Deep cultures were taken and bone biopsy was sent off again. Patient will need continue on the IV antibiotics. We will see how it looks over the next 24 hours to see if another procedures required Specimen: Right calcaneus Condition Good Disposition Still a Patient RADHA MANNING DPM Dec 26, 2024 13:52
--- NOTE | 2024-12-26 16:03 | DVHPN2 ---
Subjective This is a follow up on 54-year-old male with a known history of hypertension, chronic alcoholism, recent history of bilateral foot blisters status post I and D of the right heel for osteomyelitis on11/25, then again admission was discharged on December 12 presented to the hospital with a right heel wound found to have suspected cellulitis/osteomyelitis of the right foot. Patient is status post right foot I and D and calcaneum bone biopsy. Reviewed: Care Plan Changes from previous H/P or p: No Changes Eyes: No Pain, No Vision change, No Conjunctivae inflammation, No Eyelid inflammation; Other (Right eye prosthesis); No Redness ENT: No Ear pain, No Ear discharge, No Nose pain, No Nose discharge, No Nose congestion, No Mouth pain, No Mouth swelling, No Throat pain, No Throat swelling, No Other Cardiovascular: No Chest Pain, No Palpitations, No Orthopnea, No Paroxysmal Noc. Dyspnea, No Edema, No Lt Headedness, No Other Respiratory: No Cough, No Dry, No Shortness of breath, No SOB with excertion, No Wheezing, No Hemoptysis, No Pleuritic Pain, No Sputum, No Other Gastrointestinal: No Nausea, No Vomiting, No Abdominal Pain, No Diarrhea, No Constipation, No Melena, No Hematochezia, No Other Genitourinary: No Dysuria, No Frequency, No Incontinence, No Hematuria, No Retention, No Other Musculoskeletal: other (Right heel pain); No neck pain, No shoulder pain, No arm pain, No back pain, No hand pain; leg pain (Right); No foot pain Skin: No Rash; Lesions (Right foot); No Jaundice, No Bruising; Other (Right foot wound) Objective Vitals Vital Signs Date Time Temp Pulse Resp B/P (MAP) Pulse Ox O2 Delivery O2 Flow Rate FiO2 12/26/24 13:55 67 13 148/83 (104) 98 12/26/24 13:35 Room Air 99 12/26/24 13:35 97.5 97.5 12/26/24 08:00 0 Intake/Output Intake and Output 12/26/24 07:00 Intake Total 3258 ml Output Total 2175 ml Balance 1083 ml Intake Oral 1058 ml IV Total 2200 ml Output Urine Total 2175 ml # Voids 4 # Bowel Movements 1 Exam HEENT pupils are reactive Neck is supple CV is S1-S2 regular rate and rhythm Respiratory are clear GI positive bowel sound Extremity no edema [employer] no motor deficit Medications Current Medications Medications Dose Ordered Sig/Rei Route Start Time Stop Time Status Last Admin Dose Admin Vancomycin HCl 0 ml @ 0 mls/hr UD IV 12/23/24 21:00 Hydralazine HCl 10 mg Q6HP PRN IV 12/23/24 21:00 12/24/24 14:14 10 MG Losartan Potassium 50 mg DAILY PO 12/24/24 10:00 12/26/24 09:11 50 MG Sodium Chloride 1,000 ml @ 120 mls/hr Q8H20M IV 12/23/24 21:00 12/25/24 23:00 120 MLS/HR Acetaminophen/ Hydrocodone Bitart 1 tab Q4HP PRN PO 12/23/24 21:00 12/25/24 23:38 1 TAB Ondansetron HCl 4 mg Q4HP PRN IV 12/23/24 21:00 Docusate Sodium 100 mg BIDPRN PRN PO 12/23/24 21:00 Acetaminophen 650 mg Q6HP PRN PO 12/23/24 21:00 Morphine Sulfate 2 mg Q4HPRN PRN IV 12/23/24 21:00 Nitroglycerin 0.4 mg Q5MINP PRN SL 12/23/24 22:45 Morphine Sulfate 2 mg Q30M PRN IV 12/23/24 22:45 Enoxaparin Sodium 40 mg DAILY SC 12/24/24 10:00 12/25/24 09:00 40 MG Diagnostic Test (Pha) 1 strip ACHS 12/24/24 07:00 12/26/24 12:20 1 STRIP Insulin Human Regular ACHS SC 12/24/24 07:00 12/25/24 21:23 4 UNITS Dextrose 50 ml UD PRN IV 12/24/24 01:15 Piperacillin Sod/ Tazobactam Sod 100 ml @ 25 mls/hr Q8H IV 12/24/24 09:00 12/26/24 09:14 25 MLS/HR Vancomycin HCl 250 ml @ 200 mls/hr Q8H IV 12/25/24 14:00 12/26/24 05:22 200 MLS/HR Laboratory Results Laboratory Tests 12/24/24 07:05 12/26/24 13:44 Urinalysis Test 12/23/24 21:00 Urine Color Colorless (Yellow) Urine Clarity Clear (Clear) Urine pH 5.0 (5.0-9.0) Urine Specific [place] 1.010 (1.001-1.035) Urine Protein Negative (Negative) Urine Ketones Negative (Negative) Urine Blood Negative /uL (Negative) Urine Nitrite Negative (Negative) Urine Bilirubin Negative (Negative) Urine Urobilinogen Normal mg/dL (Negative) Urine Leukocyte Esterase Negative /uL (Negative) Urine RBC <1 /hpf (0 - 3) Urine Microscopic WBC < 1 /HPF (0-3) Urine Squamous Epithelial Cells None seen /hpf (<5) Urine Bacteria None seen /hpf (None Seen) Urine Glucose Normal mg/dL (Normal) Microbiology Microbiology Date/Time Source Procedure Growth Status 12/24/24 12:15 Foot Gram Stain - Final Resulted 12/24/24 12:15 Wound Culture - Preliminary Proteus mirabilis Resulted 12/23/24 12:00 Blood Blood Culture - Preliminary NO GROWTH AFTER 72 HOURS OF INCUBATION. Resulted Assessment/Plan Assessment/Plan 54-year-old male with a known history of hypertension, dyslipidemia, peripheral neuropathy initially presented to the hospital with a right foot wound found to have 1. Acute right heel osteomyelitis status post I and D and calcaneum bone biopsy 2. Right foot cellulitis status post I and D 3. Hypertension 4. Diabetes type 2 5. Chronic alcoholism -IV antibiotics, follow up wound Gram stain and culture -infectious disease consultation appreciated, -Podiatry Services consultation appreciated. Plan discussed with: Patient Date of Service: Dec 26, 2024 Billing Provider: MESERET LLOYD MD Common Visit Codes: [id number] INP/OBS CARE(MOD) MESERET LLOYD MD Dec 26, 2024 16:03
--- NOTE | 2024-12-26 16:11 | DVHCONRES ---
Date Seen: Dec 26, 2024 Resident Creating Document: MIN VELASCO RESIDENT Referring Physician Parviz Reason for Consultation Osteomyelitis of the left hindfoot History of Present Illness This is a 54-year-old male with past medical history of dyslipidemia and type 2 diabetes mellitus who presented to the ED with chief complaint of right foot wound. The patient stated that he was recently admitted to the hospital on 12/03/2024 due to blister in the right food and was given IV antibiotics and discharged home on 12/12/2024. Patient at that time was instructed to perform self dressing change due to insurance issues and had to follow up in the [facility]. Patient was discharged with oral antibiotics which he does not recall the name. Patient presented back to the ED on 12/23/2024 due to right foot heel pain rated as 10/10 on the pain scale that progressively got worse prompting this visit. Upon admission, initial labs showed a WBC of 7.7, ESR 104, C-reactive protein of 5.73, hemoglobin A1c of 6.8%. Initial right lower extremity CT reveal plantar hindfoot ulceration with gas tracking through the soft tissue as deep as the cortex of the calcaneus with new erosion of the plantar aspect of the calcaneal tuberosity, greater medially likely consistent with osteomyelitis. Patient was started on IV vancomycin and Zosyn. Infectious Disease was consulted for osteomyelitis of the right calcaneus bone. Blood cultures are negative. Left wound culture is currently growing Proteus mirabilis which is susceptible to Zosyn and other antibiotics. Today, patient was taken to the OR for incision and drainage of the right foot at the calcaneus level. We suggest to continue IV vancomycin and Zosyn until cultures taken in the OR come back. Past Medical History Type 2 diabetes mellitus, dyslipidemia (patient is noncompliant and do not want to accept his diagnosis and does not want to take any medication) Past Surgical History Right eye surgery Family History: Diabetes mellitus GRANDMA UNCLE Family History Noncontributory Social History Patient denies smoking, alcohol consumption or any illicit drug use. Allergies: Coded Allergies: NO KNOWN ALLERGIES (Unverified , 11/22/24) Home Meds Active Scripts Hydrocodone-Acetaminophen (Hydrocodone Bitartrate/AC 5-325 mg) 1 Tab Tab, 1 TAB PO Q4HP PRN, #30 TAB Prov:BOBBY RIVERS MD 11/29/24 Amoxicillin & Pot Clavulanate (AUGMENTIN TABLET) 875 Mg Tb, 875 MG PO BID for 7 Days, #14 TAB 0 Refills Prov:MARGARETTE AGUILAR 11/29/24 Polyethylene Glycol 3350 (Miralax) 17 Gm Pow, 17 GM PO DAILY PRN for 20 Days, #20 POW 0 Refills Prov:MARGARETTE AGUILAR 11/29/24 Nifedipine (Nifedipine Er) 30 Mg Tab, 90 MG PO DAILY for 28 Days, #84 TAB Prov:MARGARETTE AGUILAR 11/29/24 Losartan Potassium (Losartan Potassium) 50 Mg Tab, 50 MG PO DAILY for 28 Days, #28 TAB Prov:MARGARETTE AGUILAR 11/29/24 Gabapentin (Gabapentin) 100 Mg Cap, 100 MG PO TID for 28 Days, #84 CAP Prov:MARGARETTE AGUILAR 11/29/24 Review of Systems ROS Constitutional: Denies weight loss, fever and chills. HEENT: Denies changes in vision and hearing. Respiratory: Denies shortness of breath and cough Cardiovascular: Denies chest discomfort or palpitations GI: Denies abdominal pain, nausea, vomiting and diarrhea. : Denies dysuria and urinary frequency. Musculoskeletal: Reports right lower extremity pain at the level of the calcaneal bone. Skin: Denies rash and pruritus. Neurological: Denies dizziness, headache, vision or hearing problems Vital Signs Vital Signs Date Time Temp Pulse Resp B/P (MAP) Pulse Ox O2 Delivery O2 Flow Rate FiO2 12/26/24 13:55 67 13 148/83 (104) 98 12/26/24 13:35 Room Air 99 12/26/24 13:35 97.5 97.5 12/26/24 08:00 0 Physical Exam Physical Examination General: Patient alert and oriented in person, place and time. Patient fo llowing commands. HEENT: Normocephalic, atraumatic, moist mucous membranes. Patient had surgery in the right eye. Respiratory/pulmonary: Clear lungs bilaterally, no associated crackles or wheezes. Cardiovascular: Normal heart sounds S1 and S2 with no associated murmurs Abdomen: Abdomen nondistended, there is no pain to palpation in any of the abdominal quadrants, no palpable masses. Extremities: Right lower extremity at the level of the foot is wrapped with clean gauze with no evidence of sucking serosanguineous or purulent secretion at this time. Left foot is grossly unremarkable. Skin: No rashes or pruritus, there is no sacral edema present at this time. Neurological: Intact cranial nerves with no focal neurologic deficits Labs/Diagnostic Data Labs Test 12/26/24 13:44 12/26/24 12:02 12/24/24 07:05 12/23/24 21:00 Range/Units Creatinine 0.64 L 0.700-1.30 mg/dL Glomerular Filtration Rate Calc 112 >90 mL/min Vancomycin Level Trough 18.5 H 5-10 ug/mL POC Glucose 142 H 70-106 mg/dl White Blood Count 6.8 4.4-10.8 10^3/uL Red Blood Count 3.41 L 4.5-5.90 10^6/uL Hemoglobin 11.4 L 13.5-17.5 g/dL Hematocrit 31.9 L 41.0-53.0 % Mean Corpuscular Volume 93.6 80.0-100.0 fL Mean Corpuscular Hemoglobin 33.3 H 28.0-32.0 pg Mean Corpuscular Hemoglobin Concent 35.6 32.0-36.0 g/dL Red Cell Distribution Width 13.3 11.8-14.3 % Platelet Count 327 140-450 10^3/uL Mean Platelet Volume 6.8 L 6.9-10.8 fL Neutrophils (%) (Auto) 76.2 37.0-80.0 % Lymphocytes (%) (Auto) 12.8 10.0-50.0 % Monocytes (%) (Auto) 7.6 0.0-12.0 % Eosinophils (%) (Auto) 2.5 0.0-7.0 % Basophils (%) (Auto) 0.9 0.0-2.0 % Neutrophils # (Auto) 5.2 1.6-8.6 10 ^3/uL Lymphocytes # (Auto) 0.9 0.4-5.4 10 ^3/uL Monocytes # (Auto) 0.5 0-1.3 10 ^3/uL Eosinophils # (Auto) 0.2 0-0.8 10 ^3/uL Basophils # (Auto) 0.1 0-0.2 10 ^3/uL Nucleated Red Blood Cells 0.0 % Sodium Level 139 # 136-145 mmol/L Potassium Level 4.1 3.5-5.1 mmol/L Chloride Level 106 98-107 mmol/L Carbon Dioxide Level 26 20-31 mmol/L Anion Gap 7 5-15 Blood Urea Nitrogen 6 L 9-23 mg/dL BUN/Creatinine Ratio 8.8 L 10.0-20.0 Serum Glucose 158 H 74-106 mg/dL Calcium Level 8.9 8.7-10.4 mg/dL Total Bilirubin 0.5 0.2-1.0 mg/dL Aspartate Amino Transferase (AST) 13 <34 U/L Alanine Aminotransferase (ALT) 12 7-40 U/L Alkaline Phosphatase 88 46-116 U/L Total Protein 6.9 5.7-8.2 g/dL Albumin 3.6 3.2-4.8 g/dL Urine Color Colorless Yellow Urine Clarity Clear Clear Urine pH 5.0 5.0-9.0 Urine Specific [place] 1.010 1.001-1.035 Urine Protein Negative Negative Urine Ketones Negative Negative Urine Blood Negative Negative /uL Urine Nitrite Negative Negative Urine Bilirubin Negative Negative Urine Urobilinogen Normal Negative mg/dL Urine Leukocyte Esterase Negative Negative /uL Urine RBC <1 0 - 3 /hpf Urine Microscopic WBC < 1 0-3 /HPF Urine Squamous Epithelial Cells None seen <5 /hpf Urine Bacteria None seen None Seen /hpf Urine Glucose Normal Normal mg/dL Test 12/23/24 12:00 Range/Units Erythrocyte Sedimentation Rate 104 H 0-20 mm/hr Hemoglobin A1c 6.8 H <5.7 % A1C Lactic Acid Level 1.7 0.4-2.0 mmol/L C-Reactive Protein High Sensitivity 5.73 H <1.0 mg/dL Microbiology Date/Time Source Procedure Growth Status 12/24/24 12:15 Foot Gram Stain - Final Resulted 12/24/24 12:15 Wound Culture - Preliminary Proteus mirabilis Resulted 12/23/24 12:00 Blood Blood Culture - Preliminary NO GROWTH AFTER 72 HOURS OF INCUBATION. 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 -right foot MRI showed large plantar heel ulcer with sinus tract and associated osteomyelitis of the calcaneus bone with no abscess. There is diffuse subcutaneous and intrinsic muscle edema -patient was started on broad-spectrum IV antibiotics. IV vancomycin and Zosyn -maintenance inspector is on board, who took the patient to the OR today for incision and drainage, debridement and specimen sent to pathology for cultures -continue current IV antibiotics until cultures are back (IV vancomycin and IV zosyn) -wound consult -daily wound cleaning, wound dressing Goals of care discussed with the patient at bedside for >35min, FULL CODE Plan discussed with Plan discussed with: Patient MIN VELASCO RESIDENT Dec 26, 2024 16:11
[2024-12-26] MEDS: VANCOMYCIN 1GM/200ML PM 200 ML IV SCH (16:21)
[2024-12-26] MEDS: PIPERACILLIN-TAZO 4.5GM 100 ML IV SCH (17:38)
[2024-12-27] VITALS (8 sets, daily range): BP systolic 113–154; BP diastolic 54–83; PULSE 67–82; RESP 16–18; TEMP 97.6–98.7; O2SAT 96–99
[2024-12-27 09:19] LABS: Basophils # (auto) 0 10 ^3/uL (0-0.2); Basophils % (auto) 0.4 % (0.0-2.0); Eosinophils # (auto) 0 10 ^3/uL (0-0.8); Eosinophils % (auto) 0.1 % (0.0-7.0); Hematocrit 29.6 % (41.0-53.0); Hemoglobin 10.3 g/dL (13.5-17.5); Lymphocytes # (auto) 1.2 10 ^3/uL (0.4-5.4); Lymphocytes % (auto) 11.2 % (10.0-50.0); Mean Corpuscular Hgb Conc. 34.8 g/dL (32.0-36.0); Mean Corpuscular Volume 94.6 fL (80.0-100.0); Monocytes # (auto) 0.6 10 ^3/uL (0-1.3); Monocytes % (auto) 5.7 % (0.0-12.0); Neutrophils # (auto) 8.5 10 ^3/uL (1.6-8.6); Neutrophils % (auto) 82.6 % (37.0-80.0); Nucleated Red Blood Cells % 0.1 %; Platelet Count (auto) 328 10^3/uL (140-450); Red Blood Cells 3.13 10^6/uL (4.5-5.90); Red Cell Distribution Width 13.3 % (11.8-14.3); White Blood Cell 10.3 10^3/uL (4.4-10.8)
--- NOTE | 2024-12-27 11:13 | DVHPNRES ---
Progress Note Date Seen: Dec 27, 2024 Resident Creating Document: MIN VELASCO RESIDENT Has the PT tested + for MRSA If YES, has PT been informed?: No Medical Necessity Reason Pt with a Central, PICC or Fol: No Subjective Review of Systems Patient seen and examined at bedside. Patient reports less pain at the level of the right heel of the foot. Patient underwent incision and drainage yesterday and cultures were sent to pathology. We will continue vancomycin and Zosyn until wound cultures are back. The patient denies fever and vital signs has been on normal range. There were no major events overnight. We will wait for regional construction manager to determine if patient needs a 2nd incision and drainage. Meanwhile we will wait for wound cultures and continue current IV antibiotics. ROS Constitutional: Denies weight loss, fever and chills. HEENT: Denies changes in vision and hearing. Respiratory: Denies shortness of breath and cough Cardiovascular: Denies chest discomfort or palpitations GI: Denies abdominal pain, nausea, vomiting and diarrhea. : Denies dysuria and urinary frequency. Musculoskeletal: Denies myalgias and joint pain Skin: Denies rash and pruritus. Neurological: Denies dizziness, headache, vision or hearing problems Objective vital signs Vital Sign Date Time Temp Pulse Resp B/P (MAP) Pulse Ox O2 Delivery O2 Flow Rate FiO2 12/27/24 09:35 139/70 12/27/24 08:00 67 16 96 Room Air* 0 21 12/27/24 05:00 98.1 98.1 Total Intake and Output 12/26/24 12/26/24 12/27/24 15:00 23:00 07:00 Intake Total 100 ml 700 ml 650 ml Output Total 1650 ml 650 ml Balance 100 ml -950 ml 0 ml medications Current Medications Medications Dose Ordered Sig/Rei Route Start Time Stop Time Status Last Admin Dose Admin Vancomycin HCl 0 ml @ 0 mls/hr UD IV 12/23/24 21:00 Hydralazine HCl 10 mg Q6HP PRN IV 12/23/24 21:00 12/26/24 16:13 10 MG Losartan Potassium 50 mg DAILY PO 12/24/24 10:00 12/27/24 09:35 50 MG Sodium Chloride 1,000 ml @ 120 mls/hr Q8H20M IV 12/23/24 21:00 12/27/24 09:35 120 MLS/HR Acetaminophen/ Hydrocodone Bitart 1 tab Q4HP PRN PO 12/23/24 21:00 12/26/24 21:09 1 TAB Ondansetron HCl 4 mg Q4HP PRN IV 12/23/24 21:00 Docusate Sodium 100 mg BIDPRN PRN PO 12/23/24 21:00 Acetaminophen 650 mg Q6HP PRN PO 12/23/24 21:00 Morphine Sulfate 2 mg Q4HPRN PRN IV 12/23/24 21:00 Nitroglycerin 0.4 mg Q5MINP PRN SL 12/23/24 22:45 Morphine Sulfate 2 mg Q30M PRN IV 12/23/24 22:45 Enoxaparin Sodium 40 mg DAILY SC 12/24/24 10:00 12/27/24 09:35 40 MG Diagnostic Test (Pha) 1 strip ACHS 12/24/24 07:00 12/27/24 05:57 1 STRIP Insulin Human Regular ACHS SC 12/24/24 07:00 12/27/24 05:59 6 UNITS Dextrose 50 ml UD PRN IV 12/24/24 01:15 Vancomycin HCl 200 ml @ 200 mls/hr Q8HR@0000,0800,1600 IV 12/26/24 16:00 12/27/24 07:50 200 MLS/HR Piperacillin Sod/ Tazobactam Sod 100 ml @ 25 mls/hr Q8H IV 12/26/24 17:00 12/27/24 09:34 25 MLS/HR Examination Physical Examination General: Patient alert and oriented in person, place and time. Patient following commands. HEENT: Normocephalic, atraumatic, moist mucous membranes. Patient had surgery in the right eye. Respiratory/pulmonary: Clear lungs bilaterally, no associated crackles or wheezes. Cardiovascular: Normal heart sounds S1 and S2 with no associated murmurs Abdomen: Abdomen nondistended, there is no pain to palpation in any of the abdominal quadrants, no palpable masses. Extremities: Right lower extremity at the level of the foot is wrapped with clean gauze. Left foot is grossly unremarkable. Skin: No rashes or pruritus, there is no sacral edema present at this time. Neurological: Intact cranial nerves with no focal neurologic deficits laboratory and microbiology Laboratory Tests 12/27/24 09:02 12/26/24 13:44 12/24/24 07:05 Test 12/24/24 07:05 Range/Units Serum Glucose 158 H 74-106 mg/dL Microbiology Date/Time Source Procedure Growth Status 12/24/24 12:15 Foot Gram Stain - Final Resulted 12/24/24 12:15 Wound Culture - Preliminary Proteus mirabilis Resulted 12/23/24 12:00 Blood Blood Culture - Preliminary NO GROWTH AFTER 72 HOURS OF INCUBATION. 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 -right foot MRI showed large plantar heel ulcer with sinus tract and associated osteomyelitis of the calcaneus bone with no abscess. There is diffuse subcutaneous and intrinsic muscle edema -regional construction manager is on board, patient was taken to the OR yesterday for incision and drainage and cultures from the wound were sent to pathology. -continue current IV antibiotics until cultures are back (IV vancomycin and IV zosyn) -wound consult -daily wound cleaning, wound dressing. -await for debridement wound cultures Goals of care discussed with the patient at bedside for >35min, FULL CODE Plan discussed with Plan discussed with: Patient Dietary Evaluation Review Recommendations by RD: Dietary education by RD, Protein Supplementation Comments: 1) Add 60g CCHO restriction to cardiac diet 2) Initiate Marquise @ 1 pk bid 3) Initiate MVI @ 1 tb qd 4) Encourage patient to limit intake of added sugars including sugar-sweetened beverages, desserts, candy, etc. Aim to eat a consistent amount of CHO throughout the day and pair with protein to promote glycemic control. 5) Refer to outpatient RD/CD[facility] for diabetes education and weight management 6) Follow-up with cardiology 7) Continue to monitor I&O, labs, and skin integrity Expected Outcomes/Goals: 1) appetite and labs to improve 2) wound to improve 3) f/u in 3-5 days MIN VELASCO RESIDENT Dec 27, 2024 11:13
--- NOTE | 2024-12-27 15:03 | DVHPN2 ---
Subjective The patient is a 54-year-old male with past medical history of [place] who presented to [facility] ED with complaint of right foot wound. Patient was seen in this ED on 12/03/24 due to blister on right foot, was admitted, given IV antibiotics and discharged on 12/12/24, instructed to perform self dressing change due to insurance issues, had to follow up with discharge clinic. Patient returned to ED today due to RT heel pain, rating pain 10/10 numeric scale, getting worse that prompted this visit. Patient was seen and evaluated in the ED, laboratory data shows WBC 7.7, platelets 371, ESR 104, C-reactive protein 5.73, sodium 129, potassium 3.7, BUN 7, creatinine 0.60, glucose 160, hemoglobin A1c 6.8, calcium 8.5, blood pressure 141/84, heart rate 84, temperature 98.7 F, O2 saturation 95% on room air. Right lower extremity CT revealing plantar hindfoot ulceration with gas tracking through the soft tissue as deep as the cortex of the calcaneus, with new erosions of the plantar aspect of the calcaneal tuberosity, greater medially, consistent with osteomyelitis. foot Patient was started on IV antibiotic regimen Zosyn, please see medication orders section in the computer. On my assessment, patient denied chest pain, no headache, no dizziness, no shortness of breath, no diaphoresis, no nausea, no vomiting, no fever, no chills. Patient was admitted for further evaluation and medical management. Reviewed: Care Plan Changes from previous H/P or p: No Changes Eyes: No Pain, No Vision change, No Conjunctivae inflammation, No Eyelid inflammation; Other (Right eye prosthesis); No Redness ENT: No Ear pain, No Ear discharge, No Nose pain, No Nose discharge, No Nose congestion, No Mouth pain, No Mouth swelling, No Throat pain, No Throat swelling, No Other Cardiovascular: No Chest Pain, No Palpitations, No Orthopnea, No Paroxysmal Noc. Dyspnea, No Edema, No Lt Headedness, No Other Respiratory: No Cough, No Dry, No Shortness of breath, No SOB with excertion, No Wheezing, No Hemoptysis, No Pleuritic Pain, No Sputum, No Other Gastrointestinal: No Nausea, No Vomiting, No Abdominal Pain, No Diarrhea, No Constipation, No Melena, No Hematochezia, No Other Genitourinary: No Dysuria, No Frequency, No Incontinence, No Hematuria, No Retention, No Other Musculoskeletal: other (Right heel pain); No neck pain, No shoulder pain, No arm pain, No back pain, No hand pain; leg pain (Right); No foot pain Skin: No Rash; Lesions (Right foot); No Jaundice, No Bruising; Other (Right foot wound) Objective Vitals Vital Signs Date Time Temp Pulse Resp B/P (MAP) Pulse Ox O2 Delivery O2 Flow Rate FiO2 12/27/24 13:00 98.0 72 18 154/73 (100) 97 98.0 12/27/24 08:00 Room Air* 0 21 Intake/Output Intake and Output 12/27/24 07:00 Intake Total 1450 ml Output Total 2300 ml Balance -850 ml Intake Oral 750 ml IV Total 700 ml Output Urine Total 2300 ml # Voids 4 # Bowel Movements 1 Exam Dermatological: Skin is dry with mild erythema and some maceration around the wound site No gross deformities noted Mild non-pitting edema present bilaterally Right plantar heel with significant necrosis Vascular: Dorsalis pedis and posterior tibial pulses are 1+ bilaterally Capillary refill is under 2 seconds Skin temperature is warm bilaterally Neurologic: Protective sensation is absent on the plantar forefoot bilaterally Monofilament testing reveals decreased sensation in multiple plantar sites Musculoskeletal: Range of motion at the ankle and MTP joints is within normal limits. Strength is 5/5 in all tested muscle groups. Gait is antalgic due to offloading of the affected limb. Medications Current Medications Medications Dose Ordered Sig/Rei Route Start Time Stop Time Status Last Admin Dose Admin Vancomycin HCl 0 ml @ 0 mls/hr UD IV 12/23/24 21:00 Hydralazine HCl 10 mg Q6HP PRN IV 12/23/24 21:00 12/26/24 16:13 10 MG Losartan Potassium 50 mg DAILY PO 12/24/24 10:00 12/27/24 09:35 50 MG Sodium Chloride 1,000 ml @ 120 mls/hr Q8H20M IV 12/23/24 21:00 12/27/24 09:35 120 MLS/HR Acetaminophen/ Hydrocodone Bitart 1 tab Q4HP PRN PO 12/23/24 21:00 12/26/24 21:09 1 TAB Ondansetron HCl 4 mg Q4HP PRN IV 12/23/24 21:00 Docusate Sodium 100 mg BIDPRN PRN PO 12/23/24 21:00 Acetaminophen 650 mg Q6HP PRN PO 12/23/24 21:00 Morphine Sulfate 2 mg Q4HPRN PRN IV 12/23/24 21:00 Nitroglycerin 0.4 mg Q5MINP PRN SL 12/23/24 22:45 Morphine Sulfate 2 mg Q30M PRN IV 12/23/24 22:45 Enoxaparin Sodium 40 mg DAILY SC 12/24/24 10:00 12/27/24 09:35 40 MG Diagnostic Test (Pha) 1 strip ACHS 12/24/24 07:00 12/27/24 11:52 1 STRIP Insulin Human Regular ACHS SC 12/24/24 07:00 12/27/24 11:53 4 UNITS Dextrose 50 ml UD PRN IV 12/24/24 01:15 Vancomycin HCl 200 ml @ 200 mls/hr Q8HR@0000,0800,1600 IV 12/26/24 16:00 12/27/24 07:50 200 MLS/HR Piperacillin Sod/ Tazobactam Sod 100 ml @ 25 mls/hr Q8H IV 12/26/24 17:00 12/27/24 09:34 25 MLS/HR Laboratory Results Laboratory Tests 12/24/24 07:05 12/26/24 13:44 12/27/24 09:02 Urinalysis Test 12/23/24 21:00 Urine Color Colorless (Yellow) Urine Clarity Clear (Clear) Urine pH 5.0 (5.0-9.0) Urine Specific [place] 1.010 (1.001-1.035) Urine Protein Negative (Negative) Urine Ketones Negative (Negative) Urine Blood Negative /uL (Negative) Urine Nitrite Negative (Negative) Urine Bilirubin Negative (Negative) Urine Urobilinogen Normal mg/dL (Negative) Urine Leukocyte Esterase Negative /uL (Negative) Urine RBC <1 /hpf (0 - 3) Urine Microscopic WBC < 1 /HPF (0-3) Urine Squamous Epithelial Cells None seen /hpf (<5) Urine Bacteria None seen /hpf (None Seen) Urine Glucose Normal mg/dL (Normal) Microbiology Microbiology Date/Time Source Procedure Growth Status 12/26/24 13:20 Foot Right Gram Stain - Final Resulted 12/26/24 13:20 Foot Right Anaerobic Culture - Preliminary Resulted 12/26/24 13:20 Foot Right Aerobic Culture - Preliminary Resulted 12/23/24 12:00 Blood Blood Culture - Preliminary NO GROWTH AFTER 72 HOURS OF INCUBATION. Resulted Assessment/Plan Assessment/Plan ASSESSMENT: Patient is a 34 year old seen on the floor follow up s/p foot I&D PLAN: - The patients chart was reviewed, clinical findings were discussed with the patient, the etiologies of the conditions were discussed in detail, and a treatment plan was agreed to at this time, with both oral and written instructions provided. - reviewed advanced imaging - reviewed all of the labs and pathology - discussed plan is to perform a subsequent incision and drainage - patient will be NPO at midnight - take him to the OR tomorrow - it was determined that multiple I&Ds will be necessary to save the limb - evaluted patients both feet and there is excessive dryness and onychomycosis that patient would benefit from routine foot care as an outpatient - can weightbear as tolerated in postoperative shoe All questions were answered and concerns addressed to the patient's satisfaction. The patient was given the phone number to the clinic and was told how to make contact with the clinic should any concerns or questions arise. Patient understands that if any questions or concerns arise prior to the next appointment, we should be contacted immediately. FOLLOW-UP: Continue to follow while inpatient Plan discussed with: Patient My Orders Orders - RADHA MANNING DPM Procedure Category Date Status Time Consistent DIET 12/26/24 Transmitted Carb(Ccho)Diabetes Dinner Npo After Midnight EDDIE 12/27/24 Verified 15:02 Npo (Nothing By DIET 12/28/24 Verified Mouth) Diet Breakfast Problem List: (1) Osteomyelitis (2) Cellulitis of right foot (3) Wound of foot (4) Generalized weakness (5) Osteomyelitis of right foot (6) Wound of right foot (7) Systemic inflammatory response syndrome (SIRS) (8) Type 2 diabetes mellitus with hyperglycemia (9) Hyponatremia (10) Alcohol intoxication (11) Alcohol abuse (12) Cellulitis (13) Hyperglycemia (14) Leukopenia (15) Chest pain (16) Post-op pain (17) Blister of foot, left (18) Blister of foot, right (19) Cellulitis of right lower extremity (20) Eloped from emergency department Date of Service: Dec 27, 2024 Billing Provider: RADHA MANNING DPM Common Visit Codes: [id number] INP/OBS CARE(HIGH) RADHA MANNING DPM Dec 27, 2024 15:03
--- NOTE | 2024-12-27 17:38 | DVHPN2 ---
Subjective This is a follow up on 54-year-old male with a known history of hypertension, chronic alcoholism, recent history of bilateral foot blisters status post I and D of the right heel for osteomyelitis on11/25, then again admission was discharged on December 12 presented to the hospital with a right heel wound found to have suspected cellulitis/osteomyelitis of the right foot. Patient is status post right foot I and D and calcaneum bone biopsy. Reviewed: Care Plan Changes from previous H/P or p: No Changes Eyes: No Pain, No Vision change, No Conjunctivae inflammation, No Eyelid inflammation; Other (Right eye prosthesis); No Redness ENT: No Ear pain, No Ear discharge, No Nose pain, No Nose discharge, No Nose congestion, No Mouth pain, No Mouth swelling, No Throat pain, No Throat swelling, No Other Cardiovascular: No Chest Pain, No Palpitations, No Orthopnea, No Paroxysmal Noc. Dyspnea, No Edema, No Lt Headedness, No Other Respiratory: No Cough, No Dry, No Shortness of breath, No SOB with excertion, No Wheezing, No Hemoptysis, No Pleuritic Pain, No Sputum, No Other Gastrointestinal: No Nausea, No Vomiting, No Abdominal Pain, No Diarrhea, No Constipation, No Melena, No Hematochezia, No Other Genitourinary: No Dysuria, No Frequency, No Incontinence, No Hematuria, No Retention, No Other Musculoskeletal: other (Right heel pain); No neck pain, No shoulder pain, No arm pain, No back pain, No hand pain; leg pain (Right); No foot pain Skin: No Rash; Lesions (Right foot); No Jaundice, No Bruising; Other (Right foot wound) Objective Vitals Vital Signs Date Time Temp Pulse Resp B/P (MAP) Pulse Ox O2 Delivery O2 Flow Rate FiO2 12/27/24 16:34 97.8 67 18 135/72 (93) 96 97.8 12/27/24 08:00 Room Air* 0 21 Intake/Output Intake and Output 12/27/24 07:00 Intake Total 1450 ml Output Total 2300 ml Balance -850 ml Intake Oral 750 ml IV Total 700 ml Output Urine Total 2300 ml # Voids 4 # Bowel Movements 1 Exam HEENT pupils are reactive Neck is supple CV is S1-S2 regular rate and rhythm Respiratory are clear GI positive bowel sound Extremity no edema [employer] no motor deficit Medications Current Medications Medications Dose Ordered Sig/Rei Route Start Time Stop Time Status Last Admin Dose Admin Vancomycin HCl 0 ml @ 0 mls/hr UD IV 12/23/24 21:00 Hydralazine HCl 10 mg Q6HP PRN IV 12/23/24 21:00 12/26/24 16:13 10 MG Losartan Potassium 50 mg DAILY PO 12/24/24 10:00 12/27/24 09:35 50 MG Sodium Chloride 1,000 ml @ 120 mls/hr Q8H20M IV 12/23/24 21:00 12/27/24 09:35 120 MLS/HR Acetaminophen/ Hydrocodone Bitart 1 tab Q4HP PRN PO 12/23/24 21:00 12/27/24 16:33 1 TAB Ondansetron HCl 4 mg Q4HP PRN IV 12/23/24 21:00 Docusate Sodium 100 mg BIDPRN PRN PO 12/23/24 21:00 Acetaminophen 650 mg Q6HP PRN PO 12/23/24 21:00 Morphine Sulfate 2 mg Q4HPRN PRN IV 12/23/24 21:00 Nitroglycerin 0.4 mg Q5MINP PRN SL 12/23/24 22:45 Morphine Sulfate 2 mg Q30M PRN IV 12/23/24 22:45 Enoxaparin Sodium 40 mg DAILY SC 12/24/24 10:00 12/27/24 09:35 40 MG Diagnostic Test (Pha) 1 strip ACHS 12/24/24 07:00 12/27/24 17:18 1 STRIP Insulin Human Regular ACHS SC 12/24/24 07:00 12/27/24 17:18 4 UNITS Dextrose 50 ml UD PRN IV 12/24/24 01:15 Vancomycin HCl 200 ml @ 200 mls/hr Q8HR@0000,0800,1600 IV 12/26/24 16:00 12/27/24 16:25 200 MLS/HR Piperacillin Sod/ Tazobactam Sod 100 ml @ 25 mls/hr Q8H IV 12/26/24 17:00 12/27/24 17:18 25 MLS/HR Laboratory Results Laboratory Tests 12/24/24 07:05 12/27/24 09:02 12/27/24 15:06 Urinalysis Test 12/23/24 21:00 Urine Color Colorless (Yellow) Urine Clarity Clear (Clear) Urine pH 5.0 (5.0-9.0) Urine Specific [place] 1.010 (1.001-1.035) Urine Protein Negative (Negative) Urine Ketones Negative (Negative) Urine Blood Negative /uL (Negative) Urine Nitrite Negative (Negative) Urine Bilirubin Negative (Negative) Urine Urobilinogen Normal mg/dL (Negative) Urine Leukocyte Esterase Negative /uL (Negative) Urine RBC <1 /hpf (0 - 3) Urine Microscopic WBC < 1 /HPF (0-3) Urine Squamous Epithelial Cells None seen /hpf (<5) Urine Bacteria None seen /hpf (None Seen) Urine Glucose Normal mg/dL (Normal) Microbiology Microbiology Date/Time Source Procedure Growth Status 12/26/24 13:20 Foot Right Gram Stain - Final Resulted 12/26/24 13:20 Foot Right Anaerobic Culture - Preliminary Resulted 12/26/24 13:20 Foot Right Aerobic Culture - Preliminary Resulted 12/23/24 12:00 Blood Blood Culture - Preliminary NO GROWTH AFTER 72 HOURS OF INCUBATION. Resulted Assessment/Plan Assessment/Plan 54-year-old male with a known history of hypertension, dyslipidemia, peripheral neuropathy initially presented to the hospital with a right foot wound found to have 1. Acute right heel osteomyelitis status post I and D and calcaneum bone biopsy 2. Right foot cellulitis status post I and D 3. Hypertension 4. Diabetes type 2 5. Chronic alcoholism -IV antibiotics, follow up wound Gram stain and culture -infectious disease consultation appreciated, -Podiatry Services consultation appreciated. Plan discussed with: Patient Date of Service: Dec 27, 2024 Billing Provider: MESERET LLOYD MD Common Visit Codes: [id number] INP/OBS CARE(MOD) MESERET LLOYD MD Dec 27, 2024 17:38
[2024-12-28] VITALS (9 sets, daily range): BP systolic 117–169; BP diastolic 77–97; PULSE 65–89; RESP 11–19; TEMP 97.4–99.2; O2SAT 98–99
--- NOTE | 2024-12-28 11:47 | DVHPNRES ---
Progress Note Date Seen: Dec 28, 2024 Resident Creating Document: MIN VELASCO RESIDENT Has the PT tested + for MRSA If YES, has PT been informed?: No Medical Necessity Reason Pt with a Central, PICC or Fol: No Subjective Review of Systems Patient seen and examined at bedside. Patient denies fever, palpitations, chest pain, and has no pain in the left foot. Preliminary wound cultures are showing rare Gram-positive cocci in pairs and still screening for possible anaerobes. Patient will be taken to the OR today for 2nd incision and drainage. Meanwhile we will continue vancomycin and Zosyn until final cultures are back. ROS Constitutional: Denies weight loss, fever and chills. HEENT: Denies changes in vision and hearing. Respiratory: Denies shortness of breath and cough Cardiovascular: Denies chest discomfort or palpitations GI: Denies abdominal pain, nausea, vomiting and diarrhea. : Denies dysuria and urinary frequency. Musculoskeletal: Denies myalgias and joint pain Skin: Denies rash and pruritus. Neurological: Denies dizziness, headache, vision or hearing problems Objective vital signs Vital Sign Date Time Temp Pulse Resp B/P (MAP) Pulse Ox O2 Delivery O2 Flow Rate FiO2 12/28/24 09:33 165/86 12/28/24 09:00 98.3 76 17 99 98.3 12/28/24 08:00 Room Air* 0 21 Total Intake and Output 12/27/24 12/27/24 12/28/24 15:00 23:00 07:00 Intake Total 300 ml 1940 ml 500 ml Output Total 650 ml 1365 ml 1200 ml Balance -350 ml 575 ml -700 ml medications Current Medications Medications Dose Ordered Sig/Rei Route Start Time Stop Time Status Last Admin Dose Admin Vancomycin HCl 0 ml @ 0 mls/hr UD IV 12/23/24 21:00 Hydralazine HCl 10 mg Q6HP PRN IV 12/23/24 21:00 12/28/24 07:01 10 MG Losartan Potassium 50 mg DAILY PO 12/24/24 10:00 12/28/24 09:33 50 MG Sodium Chloride 1,000 ml @ 120 mls/hr Q8H20M IV 12/23/24 21:00 12/28/24 09:37 120 MLS/HR Acetaminophen/ Hydrocodone Bitart 1 tab Q4HP PRN PO 12/23/24 21:00 12/28/24 04:33 1 TAB Ondansetron HCl 4 mg Q4HP PRN IV 12/23/24 21:00 Docusate Sodium 100 mg BIDPRN PRN PO 12/23/24 21:00 Acetaminophen 650 mg Q6HP PRN PO 12/23/24 21:00 Morphine Sulfate 2 mg Q4HPRN PRN IV 12/23/24 21:00 Nitroglycerin 0.4 mg Q5MINP PRN SL 12/23/24 22:45 Morphine Sulfate 2 mg Q30M PRN IV 12/23/24 22:45 Enoxaparin Sodium 40 mg DAILY SC 12/24/24 10:00 12/27/24 09:35 40 MG Diagnostic Test (Pha) 1 strip ACHS 12/24/24 07:00 12/28/24 06:40 1 STRIP Insulin Human Regular ACHS SC 12/24/24 07:00 12/27/24 21:36 4 UNITS Dextrose 50 ml UD PRN IV 12/24/24 01:15 Vancomycin HCl 200 ml @ 200 mls/hr Q8HR@0000,0800,1600 IV 12/26/24 16:00 12/28/24 08:10 200 MLS/HR Piperacillin Sod/ Tazobactam Sod 100 ml @ 25 mls/hr Q8H IV 12/26/24 17:00 12/28/24 09:33 25 MLS/HR Examination Physical Examination General: Patient alert and oriented in person, place and time. Patient following commands. HEENT: Normocephalic, atraumatic, moist mucous membranes. Patient had surgery in the right eye. Respiratory/pulmonary: Clear lungs bilaterally, no associated crackles or wheezes. Cardiovascular: Normal heart sounds S1 and S2 with no associated murmurs Abdomen: Abdomen nondistended, there is no pain to palpation in any of the abdominal quadrants, no palpable masses. Extremities: Right lower extremity at the level of the foot is wrapped with clean gauze. Left foot is grossly unremarkable. Skin: No rashes or pruritus, there is no sacral edema present at this time. Neurological: Intact cranial nerves with no focal neurologic deficits laboratory and microbiology Laboratory Tests 12/28/24 05:23 12/27/24 09:02 12/24/24 07:05 Test 12/24/24 07:05 Range/Units Serum Glucose 158 H 74-106 mg/dL Microbiology Date/Time Source Procedure Growth Status 12/26/24 13:20 Foot Right Gram Stain - Final Resulted 12/26/24 13:20 Foot Right Anaerobic Culture - Preliminary Resulted 12/26/24 13:20 Foot Right Aerobic Culture - Preliminary Resulted 12/23/24 12:00 Blood Blood Culture - Preliminary NO GROWTH AFTER 72 HOURS OF INCUBATION. 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 -right foot MRI showed large plantar heel ulcer with sinus tract and associated osteomyelitis of the calcaneus bone with no abscess. There is diffuse subcutaneous and intrinsic muscle edema -paper sales representative is on board, patient was taken to the OR yesterday for incision and drainage and cultures from the wound were sent to pathology. -Stop zosyn and start ceftriaxone 2gr daily -Start rifampin 300mg bid po -Continue vancomycin -wound consult -daily wound cleaning, wound dressing. -preliminary wound cultures are showing rare Gram-positive cocci in pairs and still screening for possible anaerobes Goals of care discussed with the patient at bedside for >35min, FULL CODE Plan discussed with Plan discussed with: Patient Dietary Evaluation Review Recommendations by RD: Dietary education by RD, Protein Supplementation Comments: 1) Add 60g CCHO restriction to cardiac diet 2) Initiate Marquise @ 1 pk bid 3) Initiate MVI @ 1 tb qd 4) Encourage patient to limit intake of added sugars including sugar-sweetened beverages, desserts, candy, etc. Aim to eat a consistent amount of CHO throughout the day and pair with protein to promote glycemic control. 5) Refer to outpatient RD/[facility] for diabetes education and weight management 6) Follow-up with cardiology 7) Continue to monitor I&O, labs, and skin integrity Expected Outcomes/Goals: 1) appetite and labs to improve 2) wound to improve 3) f/u in 3-5 days MIN VELASCO RESIDENT Dec 28, 2024 11:47
--- NOTE | 2024-12-28 12:14 | DVHPN2 ---
Subjective The patient is a 54-year-old male with past medical history of [place] who presented to [facility] ED with complaint of right foot wound. Patient was seen in this ED on 12/03/24 due to blister on right foot, was admitted, given IV antibiotics and discharged on 12/12/24, instructed to perform self dressing change due to insurance issues, had to follow up with discharge clinic. Patient returned to ED today due to RT heel pain, rating pain 10/10 numeric scale, getting worse that prompted this visit. Patient was seen and evaluated in the ED, laboratory data shows WBC 7.7, platelets 371, ESR 104, C-reactive protein 5.73, sodium 129, potassium 3.7, BUN 7, creatinine 0.60, glucose 160, hemoglobin A1c 6.8, calcium 8.5, blood pressure 141/84, heart rate 84, temperature 98.7 F, O2 saturation 95% on room air. Right lower extremity CT revealing plantar hindfoot ulceration with gas tracking through the soft tissue as deep as the cortex of the calcaneus, with new erosions of the plantar aspect of the calcaneal tuberosity, greater medially, consistent with osteomyelitis. foot Patient was started on IV antibiotic regimen Zosyn, please see medication orders section in the computer. On my assessment, patient denied chest pain, no headache, no dizziness, no shortness of breath, no diaphoresis, no nausea, no vomiting, no fever, no chills. Patient was admitted for further evaluation and medical management. Reviewed: Care Plan Changes from previous H/P or p: No Changes Eyes: No Pain, No Vision change, No Conjunctivae inflammation, No Eyelid inflammation; Other (Right eye prosthesis); No Redness ENT: No Ear pain, No Ear discharge, No Nose pain, No Nose discharge, No Nose congestion, No Mouth pain, No Mouth swelling, No Throat pain, No Throat swelling, No Other Cardiovascular: No Chest Pain, No Palpitations, No Orthopnea, No Paroxysmal Noc. Dyspnea, No Edema, No Lt Headedness, No Other Respiratory: No Cough, No Dry, No Shortness of breath, No SOB with excertion, No Wheezing, No Hemoptysis, No Pleuritic Pain, No Sputum, No Other Gastrointestinal: No Nausea, No Vomiting, No Abdominal Pain, No Diarrhea, No Constipation, No Melena, No Hematochezia, No Other Genitourinary: No Dysuria, No Frequency, No Incontinence, No Hematuria, No Retention, No Other Musculoskeletal: other (Right heel pain); No neck pain, No shoulder pain, No arm pain, No back pain, No hand pain; leg pain (Right); No foot pain Skin: No Rash; Lesions (Right foot); No Jaundice, No Bruising; Other (Right foot wound) Objective Vitals Vital Signs Date Time Temp Pulse Resp B/P (MAP) Pulse Ox O2 Delivery O2 Flow Rate FiO2 12/28/24 09:33 165/86 12/28/24 09:00 98.3 76 17 99 98.3 12/28/24 08:00 Room Air* 0 21 Intake/Output Intake and Output 12/28/24 07:00 Intake Total 2740 ml Output Total 3215 ml Balance -475 ml Intake Oral 1380 ml IV Total 1360 ml Output Urine Total 3215 ml # Bowel Movements 1 Exam Dermatological: Skin is dry with mild erythema and some maceration around the wound site No gross deformities noted Mild non-pitting edema present bilaterally Right plantar heel with significant necrosis Vascular: Dorsalis pedis and posterior tibial pulses are 1+ bilaterally Capillary refill is under 2 seconds Skin temperature is warm bilaterally Neurologic: Protective sensation is absent on the plantar forefoot bilaterally Monofilament testing reveals decreased sensation in multiple plantar sites Musculoskeletal: Range of motion at the ankle and MTP joints is within normal limits. Strength is 5/5 in all tested muscle groups. Gait is antalgic due to offloading of the affected limb. Medications Current Medications Medications Dose Ordered Sig/Rei Route Start Time Stop Time Status Last Admin Dose Admin Vancomycin HCl 0 ml @ 0 mls/hr UD IV 12/23/24 21:00 Hydralazine HCl 10 mg Q6HP PRN IV 12/23/24 21:00 12/28/24 07:01 10 MG Losartan Potassium 50 mg DAILY PO 12/24/24 10:00 12/28/24 09:33 50 MG Sodium Chloride 1,000 ml @ 120 mls/hr Q8H20M IV 12/23/24 21:00 12/28/24 09:37 120 MLS/HR Acetaminophen/ Hydrocodone Bitart 1 tab Q4HP PRN PO 12/23/24 21:00 12/28/24 04:33 1 TAB Ondansetron HCl 4 mg Q4HP PRN IV 12/23/24 21:00 Docusate Sodium 100 mg BIDPRN PRN PO 12/23/24 21:00 Acetaminophen 650 mg Q6HP PRN PO 12/23/24 21:00 Morphine Sulfate 2 mg Q4HPRN PRN IV 12/23/24 21:00 Nitroglycerin 0.4 mg Q5MINP PRN SL 12/23/24 22:45 Morphine Sulfate 2 mg Q30M PRN IV 12/23/24 22:45 Enoxaparin Sodium 40 mg DAILY SC 12/24/24 10:00 12/27/24 09:35 40 MG Diagnostic Test (Pha) 1 strip ACHS 12/24/24 07:00 12/28/24 11:46 1 STRIP Insulin Human Regular ACHS SC 12/24/24 07:00 12/27/24 21:36 4 UNITS Dextrose 50 ml UD PRN IV 12/24/24 01:15 Vancomycin HCl 200 ml @ 200 mls/hr Q8HR@0000,0800,1600 IV 12/26/24 16:00 12/28/24 08:10 200 MLS/HR Piperacillin Sod/ Tazobactam Sod 100 ml @ 25 mls/hr Q8H IV 12/26/24 17:00 12/28/24 09:33 25 MLS/HR Laboratory Results Laboratory Tests 12/24/24 07:05 12/27/24 09:02 12/28/24 05:23 Urinalysis Test 12/23/24 21:00 Urine Color Colorless (Yellow) Urine Clarity Clear (Clear) Urine pH 5.0 (5.0-9.0) Urine Specific [place] 1.010 (1.001-1.035) Urine Protein Negative (Negative) Urine Ketones Negative (Negative) Urine Blood Negative /uL (Negative) Urine Nitrite Negative (Negative) Urine Bilirubin Negative (Negative) Urine Urobilinogen Normal mg/dL (Negative) Urine Leukocyte Esterase Negative /uL (Negative) Urine RBC <1 /hpf (0 - 3) Urine Microscopic WBC < 1 /HPF (0-3) Urine Squamous Epithelial Cells None seen /hpf (<5) Urine Bacteria None seen /hpf (None Seen) Urine Glucose Normal mg/dL (Normal) Microbiology Microbiology Date/Time Source Procedure Growth Status 12/26/24 13:20 Foot Right Gram Stain - Final Resulted 12/26/24 13:20 Foot Right Anaerobic Culture - Preliminary Resulted 12/26/24 13:20 Foot Right Aerobic Culture - Preliminary Resulted 12/23/24 12:00 Blood Blood Culture - Preliminary NO GROWTH AFTER 72 HOURS OF INCUBATION. Resulted Assessment/Plan Assessment/Plan ASSESSMENT: Patient is a 34 year old seen on the floor follow up s/p foot I&D PLAN: - The patients chart was reviewed, clinical findings were discussed with the patient, the etiologies of the conditions were discussed in detail, and a treatment plan was agreed to at this time, with both oral and written instructions provided. - reviewed advanced imaging - reviewed all of the labs and pathology - discussed plan is to perform a subsequent incision and drainage - patient has been NPO since midnight - take him to the OR today - can weightbear as tolerated in postoperative shoe All questions were answered and concerns addressed to the patient's satisfaction. The patient was given the phone number to the clinic and was told how to make contact with the clinic should any concerns or questions arise. Patient understands that if any questions or concerns arise prior to the next appointment, we should be contacted immediately. FOLLOW-UP: Continue to follow while inpatient Plan discussed with: Patient My Orders Orders - RADHA MANNING DPM Procedure Category Date Status Time Npo (Nothing By DIET 12/28/24 Transmitted Mouth) Diet Breakfast Obtain Consent For: ORDERS 12/27/24 Transmitted 15:07 Problem List: (1) Osteomyelitis (2) Cellulitis of right foot (3) Wound of foot (4) Generalized weakness (5) Osteomyelitis of right foot (6) Wound of right foot (7) Systemic inflammatory response syndrome (SIRS) (8) Type 2 diabetes mellitus with hyperglycemia (9) Hyponatremia (10) Alcohol intoxication (11) Alcohol abuse (12) Cellulitis (13) Hyperglycemia (14) Leukopenia (15) Chest pain (16) Post-op pain (17) Blister of foot, left (18) Blister of foot, right (19) Cellulitis of right lower extremity (20) Eloped from emergency department Date of Service: Dec 28, 2024 Billing Provider: RADHA MANNING DPM Common Visit Codes: [id number] INP/OBS CARE(HIGH) RADHA MANNING DPM Dec 28, 2024 12:14
[2024-12-28] MEDS ORDERED: MIDAZOLAM HCL 2MG/2ML 2ml VIAL (1mg/ml) ONE (12:54)
[2024-12-28] MEDS ORDERED: fentaNYL CITRATE 100 MCG/2 ML VL ONE (12:54)
[2024-12-28] MEDS ORDERED: PROPOFOL 10 MG/ML 20 ML IV ONE (12:59)
[2024-12-28] MEDS ORDERED: DexAMETHasone SOD PHOS 10MG/1ML VIAL INJ ONE (12:59)
[2024-12-28] MEDS: BUPIVACAINE 0.5% P/F INJ 10 ML VIAL ONE (13:01)
--- NOTE | 2024-12-28 13:08 | DVHOP2 ---
Operative Report - 2 Report Details Date: 12/28/24 Preop Diagnosis: 1. Right heel osteomyelitis 2. Right heel abscess 3. Right heel cellulitis 4. Of the foot diabetic ulcer down to bone Postop Diagnosis: Same as preop Surgeon: Radha Manning MD Anesthesiologist: See anesthesia Anesthesia: Mac Consent: The patient was informed of the risks and benefits of the procedure. These include but are not limited to complications of anesthesia, postoperative infection, incomplete relief of symptoms, recurrence of symptoms, damage to blood vessels, nerves and tendons, deep venous thrombosis, pulmonary embolism and possible need for repeat surgery in the future. Complications: None Estimated Blood Loss: Minimal Fluids: See anesthesia Findings: Consistent with diagnosis Indications for Surgery: Worsening foot wound Name of Procedure Performed 1. Right heel I&D to bone (47039) Procedure Details Procedure Details: PRE-PROCEDURE INFORMATION: In the pre-op holding area, the extremity to be operated on was clearly marked and the patient verified correct laterality of the marking. The patient was transferred to the OR table and placed in a supine position. A timeout was performed in which identification of the correct patient, procedure, location, and materials was done. The right foot and leg were prepped and draped in normal sterile fashion. DESCRIPTION OF PROCEDURE: Attention was directed to the right heel where previous incision was made. An incision was made over this area and was deepened through blunt dissection. The incision was deepened to the level of abscess and bone. Care was taken to the dissection to avoid any neurovascular and tendinous structures. The incision was deepened to the bone, and the abscess appeared to be purulent fluid consistent with pus. The cortices of the bone was then removed with rongeur an all necrotic tissue. After the abscess was drained, the area was irrigated with 3 L normal saline using cysto tubing. Deep cultures were then obtained from the wound. The area was then inspected and any areas of tracking, especially along the tendons were also drained. The wound was packed with Betadine-soaked gauze and we will need to be closed at a later date. POSTOPERATIVE INFORMATION: The patient tolerated the above noted procedure and anesthesia well and was transferred to the PACU with vital signs stable, and vascular status intact with capillary refill intact to all digits. Patient will need 6 weeks IV antibiotics. Patient would benefit from a wound VAC on the heel to help fill in the remaining tissue from the loss. Patient dressed with Betadine-soaked gauze, Kerlix, Surjit. Dressings to be changed every other day. Patient can weightbear as tolerated with a postop shoe but in limited nature due to the plantar heel wound. Condition Good Disposition Still a Patient RADHA MANNING DPM Dec 28, 2024 13:08
--- NOTE | 2024-12-28 15:54 | DVHPN2 ---
Subjective This is a follow up on 54-year-old male with a known history of hypertension, chronic alcoholism, recent history of bilateral foot blisters status post I and D of the right heel for osteomyelitis on11/25, then again admission was discharged on December 12 presented to the hospital with a right heel wound found to have suspected cellulitis/osteomyelitis of the right foot. Patient is status post right foot I and D and calcaneum bone biopsy. Patient is going for 2nd surgery today. Reviewed: Care Plan Changes from previous H/P or p: No Changes Eyes: No Pain, No Vision change, No Conjunctivae inflammation, No Eyelid inflammation; Other (Right eye prosthesis); No Redness ENT: No Ear pain, No Ear discharge, No Nose pain, No Nose discharge, No Nose congestion, No Mouth pain, No Mouth swelling, No Throat pain, No Throat swelling, No Other Cardiovascular: No Chest Pain, No Palpitations, No Orthopnea, No Paroxysmal Noc. Dyspnea, No Edema, No Lt Headedness, No Other Respiratory: No Cough, No Dry, No Shortness of breath, No SOB with excertion, No Wheezing, No Hemoptysis, No Pleuritic Pain, No Sputum, No Other Gastrointestinal: No Nausea, No Vomiting, No Abdominal Pain, No Diarrhea, No Constipation, No Melena, No Hematochezia, No Other Genitourinary: No Dysuria, No Frequency, No Incontinence, No Hematuria, No Retention, No Other Musculoskeletal: other (Right heel pain); No neck pain, No shoulder pain, No arm pain, No back pain, No hand pain; leg pain (Right); No foot pain Skin: No Rash; Lesions (Right foot); No Jaundice, No Bruising; Other (Right foot wound) Objective Vitals Vital Signs Date Time Temp Pulse Resp B/P (MAP) Pulse Ox O2 Delivery O2 Flow Rate FiO2 12/28/24 13:35 69 11 149/90 (109) 99 12/28/24 13:15 Room Air 99 12/28/24 13:15 97.8 97.8 12/28/24 08:00 0 Intake/Output Intake and Output 12/28/24 07:00 Intake Total 2740 ml Output Total 3215 ml Balance -475 ml Intake Oral 1380 ml IV Total 1360 ml Output Urine Total 3215 ml # Bowel Movements 1 Exam HEENT pupils are reactive Neck is supple CV is S1-S2 regular rate and rhythm Respiratory are clear GI positive bowel sound Extremity no edema 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 motor deficit Medications Current Medications Medications Dose Ordered Sig/Rei Route Start Time Stop Time Status Last Admin Dose Admin Vancomycin HCl 0 ml @ 0 mls/hr UD IV 12/23/24 21:00 Hydralazine HCl 10 mg Q6HP PRN IV 12/23/24 21:00 12/28/24 07:01 10 MG Losartan Potassium 50 mg DAILY PO 12/24/24 10:00 12/28/24 09:33 50 MG Sodium Chloride 1,000 ml @ 120 mls/hr Q8H20M IV 12/23/24 21:00 12/28/24 09:37 120 MLS/HR Acetaminophen/ Hydrocodone Bitart 1 tab Q4HP PRN PO 12/23/24 21:00 12/28/24 04:33 1 TAB Ondansetron HCl 4 mg Q4HP PRN IV 12/23/24 21:00 Docusate Sodium 100 mg BIDPRN PRN PO 12/23/24 21:00 Acetaminophen 650 mg Q6HP PRN PO 12/23/24 21:00 Morphine Sulfate 2 mg Q4HPRN PRN IV 12/23/24 21:00 Nitroglycerin 0.4 mg Q5MINP PRN SL 12/23/24 22:45 Morphine Sulfate 2 mg Q30M PRN IV 12/23/24 22:45 Enoxaparin Sodium 40 mg DAILY SC 12/24/24 10:00 12/27/24 09:35 40 MG Diagnostic Test (Pha) 1 strip ACHS 12/24/24 07:00 12/28/24 11:46 1 STRIP Insulin Human Regular ACHS SC 12/24/24 07:00 12/27/24 21:36 4 UNITS Dextrose 50 ml UD PRN IV 12/24/24 01:15 Vancomycin HCl 200 ml @ 200 mls/hr Q8HR@0000,0800,1600 IV 12/26/24 16:00 12/28/24 08:10 200 MLS/HR Piperacillin Sod/ Tazobactam Sod 100 ml @ 25 mls/hr Q8H IV 12/26/24 17:00 12/28/24 09:33 25 MLS/HR Laboratory Results Laboratory Tests 12/24/24 07:05 12/27/24 09:02 12/28/24 05:23 Urinalysis Test 12/23/24 21:00 Urine Color Colorless (Yellow) Urine Clarity Clear (Clear) Urine pH 5.0 (5.0-9.0) Urine Specific [place] 1.010 (1.001-1.035) Urine Protein Negative (Negative) Urine Ketones Negative (Negative) Urine Blood Negative /uL (Negative) Urine Nitrite Negative (Negative) Urine Bilirubin Negative (Negative) Urine Urobilinogen Normal mg/dL (Negative) Urine Leukocyte Esterase Negative /uL (Negative) Urine RBC <1 /hpf (0 - 3) Urine Microscopic WBC < 1 /HPF (0-3) Urine Squamous Epithelial Cells None seen /hpf (<5) Urine Bacteria None seen /hpf (None Seen) Urine Glucose Normal mg/dL (Normal) Microbiology Microbiology Date/Time Source Procedure Growth Status 12/28/24 14:38 Foot Right Ordered 12/23/24 12:00 Blood Blood Culture - Final NO GROWTH AFTER 5 DAYS OF INCUBATION. Complete Assessment/Plan Assessment/Plan 54-year-old male with a known history of hypertension, dyslipidemia, peripheral neuropathy initially presented to the hospital with a right foot wound found to have 1. Acute right heel osteomyelitis status post I and D and calcaneum bone biopsy 2. Right foot cellulitis status post I and D 3. Hypertension 4. Diabetes type 2 5. Chronic alcoholism -IV antibiotics, follow up wound Gram stain and culture -infectious disease consultation appreciated, -Podiatry Services consultation appreciated. -patient is going for revision surgery for the right foot with the Podiatry Services today. Plan discussed with: Other My Orders Orders - MESERET LLOYD MD Procedure Category Date Status Time Consistent DIET 12/28/24 Transmitted Carb(Ccho)Diabetes Dinner Date of Service: Dec 28, 2024 Billing Provider: MESERET LLOYD MD Common Visit Codes: [id number] INP/OBS CARE(MOD) MESERET LLOYD MD Dec 28, 2024 15:54
[2024-12-28] MEDS: cefTRIAXone 2GM/50ML D5W 50 ML IV SCH (20:23)
[2024-12-28] MEDS: rifAMPin 300 MG CAP PO SCH (22:16)
[2024-12-29] VITALS (8 sets, daily range): BP systolic 118–179; BP diastolic 64–97; PULSE 70–84; RESP 17–20; TEMP 97.6–98.3; O2SAT 96–99
[2024-12-29 09:20] LABS: Basophils # (auto) 0 10 ^3/uL (0-0.2); Basophils % (auto) 0.2 % (0.0-2.0); Eosinophils # (auto) 0 10 ^3/uL (0-0.8); Eosinophils % (auto) 0.1 % (0.0-7.0); Hematocrit 29.8 % (41.0-53.0); Hemoglobin 10.5 g/dL (13.5-17.5); Lymphocytes # (auto) 1.2 10 ^3/uL (0.4-5.4); Lymphocytes % (auto) 15.3 % (10.0-50.0); Mean Corpuscular Hemoglobin 33.2 pg (28.0-32.0); Mean Corpuscular Hgb Conc. 35.3 g/dL (32.0-36.0); Mean Corpuscular Volume 94.2 fL (80.0-100.0); Monocytes # (auto) 0.5 10 ^3/uL (0-1.3); Monocytes % (auto) 5.9 % (0.0-12.0); Neutrophils # (auto) 6.2 10 ^3/uL (1.6-8.6); Neutrophils % (auto) 78.5 % (37.0-80.0); Platelet Count (auto) 286 10^3/uL (140-450); Red Blood Cells 3.16 10^6/uL (4.5-5.90); Red Cell Distribution Width 13.9 % (11.8-14.3); White Blood Cell 7.9 10^3/uL (4.4-10.8)
[2024-12-29 09:45] LABS: INR 1.03 (0.9-1.15); Partial Thromboplastin Time 25.5 SEC (24.5-34.5); Prothrombin Time 10.9 sec (9.3-11.8)
--- NOTE | 2024-12-29 11:20 | DVHPNRES ---
Progress Note Date Seen: Dec 29, 2024 Resident Creating Document: MIN VELASCO RESIDENT Has the PT tested + for MRSA If YES, has PT been informed?: No Medical Necessity Reason Pt with a Central, PICC or Fol: No Subjective Review of Systems Patient seen and examined at bedside. Patient states that he is feeling well overall and has no pain at the level of the right foot. Wound cultures are growing rare Gram-positive cocci in pairs, Staphylococcus aureus methicillin- resistant and Enterococcus species. No anaerobes growing so far. We will continue the patient on IV vancomycin and ceftriaxone with p.o. rifampin 300 mg b.i.d. for at least six weeks. Patient underwent incision and drainage yesterday and kitchenwhere maker recommended wound VAC upon discharge as well with IV antibiotics. ROS Constitutional: Denies weight loss, fever and chills. HEENT: Denies changes in vision and hearing. Respiratory: Denies shortness of breath and cough Cardiovascular: Denies chest discomfort or palpitations GI: Denies abdominal pain, nausea, vomiting and diarrhea. : Denies dysuria and urinary frequency. Musculoskeletal: Denies myalgias and joint pain Skin: Denies rash and pruritus. Neurological: Denies dizziness, headache, vision or hearing problems Objective vital signs Vital Sign Date Time Temp Pulse Resp B/P (MAP) Pulse Ox O2 Delivery O2 Flow Rate FiO2 12/29/24 09:31 162/92 12/29/24 09:00 98.1 84 18 99 98.1 12/29/24 07:48 Room Air* 0 21 Total Intake and Output 12/28/24 12/28/24 12/29/24 15:00 23:00 07:00 Intake Total 400 ml 570 ml 1450 ml Output Total 1800 ml Balance 400 ml 570 ml -350 ml medications Current Medications Medications Dose Ordered Sig/Rei Route Start Time Stop Time Status Last Admin Dose Admin Vancomycin HCl 0 ml @ 0 mls/hr UD IV 12/23/24 21:00 Hydralazine HCl 10 mg Q6HP PRN IV 12/23/24 21:00 12/29/24 04:00 10 MG Losartan Potassium 50 mg DAILY PO 12/24/24 10:00 12/29/24 09:31 50 MG Sodium Chloride 1,000 ml @ 120 mls/hr Q8H20M IV 12/23/24 21:00 12/29/24 10:49 120 MLS/HR Acetaminophen/ Hydrocodone Bitart 1 tab Q4HP PRN PO 12/23/24 21:00 12/28/24 04:33 1 TAB Ondansetron HCl 4 mg Q4HP PRN IV 12/23/24 21:00 Docusate Sodium 100 mg BIDPRN PRN PO 12/23/24 21:00 Acetaminophen 650 mg Q6HP PRN PO 12/23/24 21:00 Morphine Sulfate 2 mg Q4HPRN PRN IV 12/23/24 21:00 Nitroglycerin 0.4 mg Q5MINP PRN SL 12/23/24 22:45 Morphine Sulfate 2 mg Q30M PRN IV 12/23/24 22:45 Enoxaparin Sodium 40 mg DAILY SC 12/24/24 10:00 12/29/24 09:30 40 MG Diagnostic Test (Pha) 1 strip ACHS 12/24/24 07:00 12/29/24 06:06 1 STRIP Insulin Human Regular ACHS SC 12/24/24 07:00 12/29/24 06:06 4 UNITS Dextrose 50 ml UD PRN IV 12/24/24 01:15 Vancomycin HCl 200 ml @ 200 mls/hr Q8HR@0000,0800,1600 IV 12/26/24 16:00 12/29/24 08:08 200 MLS/HR Ceftriaxone Sodium/Dextrose 50 ml @ 50 mls/hr DAILY IV 12/28/24 20:00 12/29/24 09:30 50 MLS/HR Rifampin 300 mg BID PO 12/28/24 22:00 12/29/24 09:30 300 MG Examination Physical Examination General: Patient alert and oriented in person, place and time. Patient following commands. HEENT: Normocephalic, atraumatic, moist mucous membranes. Patient had surgery in the right eye. Respiratory/pulmonary: Clear lungs bilaterally, no associated crackles or wheezes. Cardiovascular: Normal heart sounds S1 and S2 with no associated murmurs Abdomen: Abdomen nondistended, there is no pain to palpation in any of the abdominal quadrants, no palpable masses. Extremities: Right lower extremity at the level of the foot is wrapped with clean gauze. Left foot is grossly unremarkable. Skin: No rashes or pruritus, there is no sacral edema present at this time. Neurological: Intact cranial nerves with no focal neurologic deficits laboratory and microbiology Laboratory Tests 12/29/24 08:28 12/24/24 07:05 Test 12/24/24 07:05 Range/Units Serum Glucose 158 H 74-106 mg/dL Microbiology Date/Time Source Procedure Growth Status 12/28/24 14:38 Foot Right Ordered 12/23/24 12:00 Blood Blood Culture - Final NO GROWTH AFTER 5 DAYS OF INCUBATION. 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 -right foot MRI showed large plantar heel ulcer with sinus tract and associated osteomyelitis of the calcaneus bone with no abscess. There is diffuse subcutaneous and intrinsic muscle edema -kitchenwhere maker is on board, patient was taken to the OR yesterday for incision and drainage and cultures from the wound were sent to pathology. Crime Laboratory Analyst recommended wound VAC upon discharge -wound consult -daily wound cleaning, wound dressing. -Wound cultures are growing staph aureus MRSA, Enterococcus suspicious and no anaerobes. -discontinue IV vancomycin and ceftriaxone -start doxycycline 100 mg b.i.d. p.o. and ciprofloxacin 500 mg b.i.d. p.o. -continue rifampin 300mg bid po -Patient needs IV abs for 6 weeks but has no insurance -patient needs doxycycline 100 mg b.i.d. p.o. and ciprofloxacin 500 mg b.i.d. p.o. as well as rifampin 300 mg b.i.d. p.o. for at least six weeks. Goals of care discussed with the patient at bedside for >35min, FULL CODE Plan discussed with Plan discussed with: Patient My Orders My Orders Orders - MIN VELASCO RESIDENT Procedure Category Date Status Time Rifampin Capsule PHA 12/28/24 In Process 22:00 Ceftriaxone 2gm/50ml PHA 12/28/24 In Process D5w (Rocephin 2gm/5 20:00 Dietary Evaluation Review Recommendations by RD: Dietary education by RD, Protein Supplementation Comments: 1) Add 60g CCHO restriction to cardiac diet 2) Initiate [place] @ 1 pk bid 3) Initiate MVI @ 1 tb qd 4) Encourage patient to limit intake of added sugars including sugar-sweetened beverages, desserts, candy, etc. Aim to eat a consistent amount of CHO throughout the day and pair with protein to promote glycemic control. 5) Refer to outpatient RD/[facility] for diabetes education and weight management 6) Follow-up with cardiology 7) Continue to monitor I&O, labs, and skin integrity Expected Outcomes/Goals: 1) appetite and labs to improve 2) wound to improve 3) f/u in 3-5 days MIN VELASCO RESIDENT Dec 29, 2024 11:20
--- NOTE | 2024-12-29 16:38 | DVHPN2 ---
Subjective This is a follow up on 54-year-old male with a known history of hypertension, chronic alcoholism, recent history of bilateral foot blisters status post I and D of the right heel for osteomyelitis on11/25, then again admission was discharged on December 12 presented to the hospital with a right heel wound found to have suspected cellulitis/osteomyelitis of the right foot. Patient is status post right foot I and D and calcaneum bone biopsy. Patient is going for 2nd surgery today. Reviewed: Care Plan Changes from previous H/P or p: No Changes Eyes: No Pain, No Vision change, No Conjunctivae inflammation, No Eyelid inflammation; Other (Right eye prosthesis); No Redness ENT: No Ear pain, No Ear discharge, No Nose pain, No Nose discharge, No Nose congestion, No Mouth pain, No Mouth swelling, No Throat pain, No Throat swelling, No Other Cardiovascular: No Chest Pain, No Palpitations, No Orthopnea, No Paroxysmal Noc. Dyspnea, No Edema, No Lt Headedness, No Other Respiratory: No Cough, No Dry, No Shortness of breath, No SOB with excertion, No Wheezing, No Hemoptysis, No Pleuritic Pain, No Sputum, No Other Gastrointestinal: No Nausea, No Vomiting, No Abdominal Pain, No Diarrhea, No Constipation, No Melena, No Hematochezia, No Other Genitourinary: No Dysuria, No Frequency, No Incontinence, No Hematuria, No Retention, No Other Musculoskeletal: other (Right heel pain); No neck pain, No shoulder pain, No arm pain, No back pain, No hand pain; leg pain (Right); No foot pain Skin: No Rash; Lesions (Right foot); No Jaundice, No Bruising; Other (Right foot wound) Objective Vitals Vital Signs Date Time Temp Pulse Resp B/P (MAP) Pulse Ox O2 Delivery O2 Flow Rate FiO2 12/29/24 13:00 98.0 75 18 165/92 (116) 98 98.0 12/29/24 07:48 Room Air* 0 21 Intake/Output Intake and Output 12/29/24 07:00 Intake Total 2420 ml Output Total 1800 ml Balance 620 ml Intake Oral 570 ml IV Total 1850 ml Output Urine Total 1800 ml # Voids 2 # Bowel Movements 1 Exam HEENT pupils are reactive Neck is supple CV is S1-S2 regular rate and rhythm Respiratory are clear GI positive bowel sound Extremity no edema PASTRY SOUS CHEF no motor deficit Medications Current Medications Medications Dose Ordered Sig/Rei Route Start Time Stop Time Status Last Admin Dose Admin Vancomycin HCl 0 ml @ 0 mls/hr UD IV 12/23/24 21:00 Hydralazine HCl 10 mg Q6HP PRN IV 12/23/24 21:00 12/29/24 04:00 10 MG Losartan Potassium 50 mg DAILY PO 12/24/24 10:00 12/29/24 09:31 50 MG Sodium Chloride 1,000 ml @ 120 mls/hr Q8H20M IV 12/23/24 21:00 12/29/24 10:49 120 MLS/HR Acetaminophen/ Hydrocodone Bitart 1 tab Q4HP PRN PO 12/23/24 21:00 12/28/24 04:33 1 TAB Ondansetron HCl 4 mg Q4HP PRN IV 12/23/24 21:00 Docusate Sodium 100 mg BIDPRN PRN PO 12/23/24 21:00 Acetaminophen 650 mg Q6HP PRN PO 12/23/24 21:00 Morphine Sulfate 2 mg Q4HPRN PRN IV 12/23/24 21:00 Nitroglycerin 0.4 mg Q5MINP PRN SL 12/23/24 22:45 Morphine Sulfate 2 mg Q30M PRN IV 12/23/24 22:45 Enoxaparin Sodium 40 mg DAILY SC 12/24/24 10:00 12/29/24 09:30 40 MG Diagnostic Test (Pha) 1 strip ACHS 12/24/24 07:00 12/29/24 11:25 1 STRIP Insulin Human Regular ACHS SC 12/24/24 07:00 12/29/24 11:25 6 UNITS Dextrose 50 ml UD PRN IV 12/24/24 01:15 Vancomycin HCl 200 ml @ 200 mls/hr Q8HR@0000,0800,1600 IV 12/26/24 16:00 12/29/24 16:05 200 MLS/HR Ceftriaxone Sodium/Dextrose 50 ml @ 50 mls/hr DAILY IV 12/28/24 20:00 12/29/24 09:30 50 MLS/HR Rifampin 300 mg BID PO 12/28/24 22:00 12/29/24 09:30 300 MG Laboratory Results Laboratory Tests 12/24/24 07:05 12/29/24 08:28 Coagulation Test 12/29/24 08:28 Prothrombin Time 10.9 sec (9.3-11.8) Prothrombin Time INR 1.03 (0.9-1.15) Activated Partial Thromboplast Time 25.5 SEC (24.5-34.5) Urinalysis Test 12/23/24 21:00 Urine Color Colorless (Yellow) Urine Clarity Clear (Clear) Urine pH 5.0 (5.0-9.0) Urine Specific [place] 1.010 (1.001-1.035) Urine Protein Negative (Negative) Urine Ketones Negative (Negative) Urine Blood Negative /uL (Negative) Urine Nitrite Negative (Negative) Urine Bilirubin Negative (Negative) Urine Urobilinogen Normal mg/dL (Negative) Urine Leukocyte Esterase Negative /uL (Negative) Urine RBC <1 /hpf (0 - 3) Urine Microscopic WBC < 1 /HPF (0-3) Urine Squamous Epithelial Cells None seen /hpf (<5) Urine Bacteria None seen /hpf (None Seen) Urine Glucose Normal mg/dL (Normal) Microbiology Microbiology Date/Time Source Procedure Growth Status 12/28/24 14:38 Foot Right Ordered 12/23/24 12:00 Blood Blood Culture - Final NO GROWTH AFTER 5 DAYS OF INCUBATION. Complete Assessment/Plan Assessment/Plan 54-year-old male with a known history of hypertension, dyslipidemia, peripheral neuropathy initially presented to the hospital with a right foot wound found to have 1. Acute right heel osteomyelitis status post I and D and calcaneum bone biopsy 2. Right foot cellulitis status post I and D on12/26, revision ID 3. Hypertension 4. Diabetes type 2 5. Chronic alcoholism -IV antibiotics, follow up wound Gram stain and culture -infectious disease consultation appreciated, -Podiatry Services consultation appreciated. -discussing detail regarding the IV antibiotics patient had no insurance he can not afford any IV antibiotics he knows that his cough not on IV antibiotics including worsening osteomyelitis infection in the bone losing of the limb this was discussed in detail in the presence of nurse jorge Gooden, PICC line has been discontinued. Patient was to be given p.o. antibiotics. Patient is close follow up as an outpatient with the PCP has been as podiatry services surgery has been as Infectious Disease. Plan discussed with: Patient My Orders Orders - MESERET LLOYD MD Procedure Category Date Status Time * Metal Drill Operator CONS 12/29/24 Transmitted Consult Date of Service: Dec 29, 2024 Billing Provider: MESERET LLOYD MD Common Visit Codes: [id number] INP/OBS CARE(MOD) MESERET LLOYD MD Dec 29, 2024 16:38
[2024-12-29] MEDS ORDERED: METF-370 PO (16:42)
[2024-12-29] MEDS ORDERED: RIFA300C58 PO (16:42)
[2024-12-29] MEDS ORDERED: CIPR500T4 PO (16:42)
[2024-12-29] MEDS ORDERED: DOXY-286 PO (16:42)
[2024-12-29] MEDS: CIPROFLOXACIN HCL 500 MG TAB PO ONE (22:08)
[2024-12-29] MEDS: DOXYCYCLINE 100 MG TAB/CAP ONE (22:09)
[2024-12-29] MEDS: DOXYCYCLINE 100 MG TAB/CAP PO SCH (22:10)
[2024-12-29] MEDS: CIPROFLOXACIN HCL 500 MG TAB PO SCH (22:10)
[2024-12-30] VITALS (8 sets, daily range): BP systolic 127–157; BP diastolic 80–93; PULSE 68–79; RESP 17–20; TEMP 98–98.7; O2SAT 98–99
[2024-12-30] MEDS: ACETAMINOPHEN 325 MG TAB PO PRN (09:33)
[2024-12-30] MEDS ORDERED: LINE1TAB6 PO (11:42)
[2024-12-30] MEDS ORDERED: HYDR-4902 PO (11:43)
[2024-12-30] MEDS ORDERED: NALO4SPR2 (11:44)
--- NOTE | 2024-12-30 11:53 | DVHDS2 ---
Discharge Summary Date of Admission Dec 23, 2024 at 22:42 Date of Discharge: Dec 30, 2024 Labs/Diagnostic Data: Laboratory Results Test 12/30/24 11:06 12/29/24 15:05 12/29/24 08:28 12/24/24 07:05 POC Glucose 162 mg/dl (70-106) Vancomycin Level Trough 14.4 ug/mL (5-10) White Blood Count 7.9 10^3/uL (4.4-10.8) Red Blood Count 3.16 10^6/uL (4.5-5.90) Hemoglobin 10.5 g/dL (13.5-17.5) Hematocrit 29.8 % (41.0-53.0) Mean Corpuscular Volume 94.2 fL (80.0-100.0) Mean Corpuscular Hemoglobin 33.2 pg (28.0-32.0) Mean Corpuscular Hemoglobin Concent 35.3 g/dL (32.0-36.0) Red Cell Distribution Width 13.9 % (11.8-14.3) Platelet Count 286 10^3/uL (140-450) Mean Platelet Volume 7.0 fL (6.9-10.8) Neutrophils (%) (Auto) 78.5 % (37.0-80.0) Lymphocytes (%) (Auto) 15.3 % (10.0-50.0) Monocytes (%) (Auto) 5.9 % (0.0-12.0) Eosinophils (%) (Auto) 0.1 % (0.0-7.0) Basophils (%) (Auto) 0.2 % (0.0-2.0) Neutrophils # (Auto) 6.2 10 ^3/uL (1.6-8.6) Lymphocytes # (Auto) 1.2 10 ^3/uL (0.4-5.4) Monocytes # (Auto) 0.5 10 ^3/uL (0-1.3) Eosinophils # (Auto) 0 10 ^3/uL (0-0.8) Basophils # (Auto) 0 10 ^3/uL (0-0.2) Nucleated Red Blood Cells 0.0 % Prothrombin Time 10.9 sec (9.3-11.8) Prothrombin Time INR 1.03 (0.9-1.15) Activated Partial Thromboplast Time 25.5 SEC (24.5-34.5) Creatinine 0.67 mg/dL (0.700-1.30) Glomerular Filtration Rate Calc 110 mL/min (>90) Sodium Level 139 mmol/L (136-145) Potassium Level 4.1 mmol/L (3.5-5.1) Chloride Level 106 mmol/L (98-107) Carbon Dioxide Level 26 mmol/L (20-31) Anion Gap 7 (5-15) Blood Urea Nitrogen 6 mg/dL (9-23) BUN/Creatinine Ratio 8.8 (10.0-20.0) Serum Glucose 158 mg/dL (74-106) Calcium Level 8.9 mg/dL (8.7-10.4) Total Bilirubin 0.5 mg/dL (0.2-1.0) Aspartate Amino Transferase (AST) 13 U/L (<34) Alanine Aminotransferase (ALT) 12 U/L (7-40) Alkaline Phosphatase 88 U/L (46-116) Total Protein 6.9 g/dL (5.7-8.2) Albumin 3.6 g/dL (3.2-4.8) Test 12/23/24 21:00 12/23/24 12:00 Urine Color Colorless (Yellow) Urine Clarity Clear (Clear) Urine pH 5.0 (5.0-9.0) Urine Specific [place] 1.010 (1.001-1.035) Urine Protein Negative (Negative) Urine Ketones Negative (Negative) Urine Blood Negative /uL (Negative) Urine Nitrite Negative (Negative) Urine Bilirubin Negative (Negative) Urine Urobilinogen Normal mg/dL (Negative) Urine Leukocyte Esterase Negative /uL (Negative) Urine RBC <1 /hpf (0 - 3) Urine Microscopic WBC < 1 /HPF (0-3) Urine Squamous Epithelial Cells None seen /hpf (<5) Urine Bacteria None seen /hpf (None Seen) Urine Glucose Normal mg/dL (Normal) Erythrocyte Sedimentation Rate 104 mm/hr (0-20) Hemoglobin A1c 6.8 % A1C (<5.7) Lactic Acid Level 1.7 mmol/L (0.4-2.0) C-Reactive Protein High Sensitivity 5.73 mg/dL (<1.0) Other Laboratory Tests 12/29/24 08:28 12/24/24 07:05 Brief Hx & Hospital Course: 54-year-old male with a known history of hypertension, dyslipidemia, peripheral neuropathy initially presented to the hospital with a right foot wound found to have 1. Acute right heel osteomyelitis status post I and D and calcaneum bone biopsy 2. Right foot cellulitis status post I and D on12/26, revision ID on12/28 3. Hypertension 4. Diabetes type 2 5. Chronic alcoholism Condition at Discharge: Good Final Diagnosis/Problems List 54-year-old male with a known history of hypertension, dyslipidemia, peripheral neuropathy initially presented to the hospital with a right foot wound found to have 1. Acute right heel osteomyelitis status post I and D and calcaneum bone biopsy 2. Right foot cellulitis status post I and D on12/26, revision ID 3. Hypertension 4. Diabetes type 2 5. Chronic alcoholism Discharge Disposition: Home with Health Services Discharge Instruct/Medications Diet: Cardiac 2g Na,low cholest Diet comment: 1800 ADA diet Activity: See Comment Activity comment: No driving, no playing on heavy machinery, no signing legal documents while on narcotics. Follow Up/Referral: Follow up with the PCP in one week Follow up with the Infectious Disease Dr. Yang Myers in one week Follow up with Dr. Mendoza in one week Medications: As prescribed and reconciled Discharge Statement: "Patient was advised to return to the ER or call 911 if any headaches, dizziness, shortness of breath, chest pain, abdominal pain, bleeding, fevers, or worsening of medical condition. Patient was counseled about treatment plan, medications, possible side effects, patientverbalized understanding. All questions were answered to the best of my ability. This discharge took greater then 30 minutes in planning, reviewing documentation, counseling the patient, and discussing with other team members." ASSESSMENT ASSESSMENT Assessment 54-year-old male with a known history of hypertension, dyslipidemia, peripheral neuropathy initially presented to the hospital with a right foot wound found to have 1. Acute right heel osteomyelitis status post I and D and calcaneum bone biopsy 2. Right foot cellulitis status post I and D on12/26, revision ID 3. Hypertension 4. Diabetes type 2 5. Chronic alcoholism MESERET LLOYD MD Dec 30, 2024 11:53
--- NOTE | 2024-12-30 12:06 | DVHPNRES ---
Progress Note Date Seen: Dec 30, 2024 Resident Creating Document: MIN VELASCO RESIDENT Has the PT tested + for MRSA If YES, has PT been informed?: No Medical Necessity Reason Pt with a Central, PICC or Fol: No Subjective Review of Systems Patient seen and examined at bedside. Patient denies fever/chills, palpitations or any other associated symptoms. Patient feels well overall. Cultures are growing vancomycin resistant Enterococcus and MRSA. Yesterday we started the patient on p.o. doxycycline, ciprofloxacin and rifampin. Based on vancomycin resistant Enterococcus we will switch doxycycline to linezolid. Social service is working on getting the patient into insurance to be able to send the patient home on IV antibiotics. If it is not possible we will send the patient on p.o. antibiotic for six weeks. ROS Constitutional: Denies weight loss, fever and chills. HEENT: Denies changes in vision and hearing. Respiratory: Denies shortness of breath and cough Cardiovascular: Denies chest discomfort or palpitations GI: Denies abdominal pain, nausea, vomiting and diarrhea. : Denies dysuria and urinary frequency. Musculoskeletal: Denies myalgias and joint pain Skin: Denies rash and pruritus. Neurological: Denies dizziness, headache, vision or hearing problems Objective vital signs Vital Sign Date Time Temp Pulse Resp B/P (MAP) Pulse Ox O2 Delivery O2 Flow Rate FiO2 12/30/24 09:25 127/83 12/30/24 09:00 98.7 77 18 98 98.7 12/30/24 08:00 Room Air* 0 21 Total Intake and Output 12/29/24 12/29/24 12/30/24 15:00 23:00 07:00 Intake Total 400 ml 1620 ml Output Total 300 ml 1900 ml Balance 100 ml -280 ml medications Current Medications Medications Dose Ordered Sig/Rei Route Start Time Stop Time Status Last Admin Dose Admin Hydralazine HCl 10 mg Q6HP PRN IV 12/23/24 21:00 12/30/24 01:47 10 MG Losartan Potassium 50 mg DAILY PO 12/24/24 10:00 12/30/24 09:25 50 MG Sodium Chloride 1,000 ml @ 120 mls/hr Q8H20M IV 12/23/24 21:00 12/30/24 11:33 120 MLS/HR Acetaminophen/ Hydrocodone Bitart 1 tab Q4HP PRN PO 12/23/24 21:00 12/28/24 04:33 1 TAB Ondansetron HCl 4 mg Q4HP PRN IV 12/23/24 21:00 Docusate Sodium 100 mg BIDPRN PRN PO 12/23/24 21:00 Acetaminophen 650 mg Q6HP PRN PO 12/23/24 21:00 12/30/24 09:33 650 MG Morphine Sulfate 2 mg Q4HPRN PRN IV 12/23/24 21:00 Nitroglycerin 0.4 mg Q5MINP PRN SL 12/23/24 22:45 Morphine Sulfate 2 mg Q30M PRN IV 12/23/24 22:45 Enoxaparin Sodium 40 mg DAILY SC 12/24/24 10:00 12/30/24 09:24 40 MG Diagnostic Test (Pha) 1 strip ACHS 12/24/24 07:00 12/30/24 11:11 1 STRIP Insulin Human Regular ACHS SC 12/24/24 07:00 12/30/24 11:12 3 UNITS Dextrose 50 ml UD PRN IV 12/24/24 01:15 Rifampin 300 mg BID PO 12/28/24 22:00 12/30/24 10:00 300 MG Doxycycline Monohydrate 100 mg Q12HR PO 12/29/24 22:00 12/29/24 22:10 100 MG Ciprofloxacin 500 mg Q12HR PO 12/29/24 22:00 12/30/24 09:25 500 MG Examination Physical Examination General: Patient alert and oriented in person, place and time. Patient following commands. HEENT: Normocephalic, atraumatic, moist mucous membranes. Patient had surgery in the right eye. Respiratory/pulmonary: Clear lungs bilaterally, no associated crackles or wheezes. Cardiovascular: Normal heart sounds S1 and S2 with no associated murmurs Abdomen: Abdomen nondistended, there is no pain to palpation in any of the abdominal quadrants, no palpable masses. Extremities: Right lower extremity at the level of the foot is wrapped with clean gauze. Left foot is grossly unremarkable. Skin: No rashes or pruritus, there is no sacral edema present at this time. Neurological: Intact cranial nerves with no focal neurologic deficits laboratory and microbiology Laboratory Tests 12/29/24 08:28 12/24/24 07:05 Test 12/24/24 07:05 Range/Units Serum Glucose 158 H 74-106 mg/dL Microbiology Date/Time Source Procedure Growth Status 12/28/24 14:38 Foot Right Ordered 12/23/24 12:00 Blood Blood Culture - Final NO GROWTH AFTER 5 DAYS OF INCUBATION. 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 -right foot MRI showed large plantar heel ulcer with sinus tract and associated osteomyelitis of the calcaneus bone with no abscess. There is diffuse subcutaneous and intrinsic muscle edema -curtain cutter is on board, patient was taken to the OR yesterday for incision and drainage and cultures from the wound were sent to pathology. Museum Assistant recommended wound VAC upon discharge -wound consult -daily wound cleaning, wound dressing. -Wound cultures are growing staph aureus MRSA, VRE -Discontinue doxycycline 100 mg b.i.d. p.o. -Continue ciprofloxacin 500 mg b.i.d. p.o. -Start linezolid 600mg po BID -continue rifampin 300mg bid po -Patient needs IV abs for 6 weeks but has no insurance -patient needs linezolid 600mg BID. p.o., ciprofloxacin 500 mg b.i.d. p.o. as well as rifampin 300 mg b.i.d. p.o. for at least six weeks. Goals of care discussed with the patient at bedside for >35min, FULL CODE Plan discussed with Plan discussed with: Patient My Orders My Orders Orders - MIN VELASCO Procedure Category Date Status Time Doxycycline Tablet PHA 12/29/24 In Process (Vibramycin Tablet) 22:00 Ciprofloxacin Tablet PHA 12/29/24 In Process (Cipro Tablet) 22:00 Dietary Evaluation Review Recommendations by RD: Dietary education by RD, Protein Supplementation Comments: 1) Add 60g CCHO restriction to cardiac diet 2) Initiate Marquise @ 1 pk bid 3) Initiate MVI @ 1 tb qd 4) Encourage patient to limit intake of added sugars including sugar-sweetened beverages, desserts, candy, etc. Aim to eat a consistent amount of CHO throughout the day and pair with protein to promote glycemic control. 5) Refer to outpatient RD/CD[facility] for diabetes education and weight management 6) Follow-up with cardiology 7) Continue to monitor I&O, labs, and skin integrity Expected Outcomes/Goals: 1) appetite and labs to improve 2) wound to improve 3) f/u in 3-5 days MIN VELASCO RESIDENT Dec 30, 2024 12:06
[2024-12-30] MEDS: LINEZOLID 600MG TABLET PO SCH (21:12)
[2024-12-31] VITALS (10 sets, daily range): BP systolic 139–175; BP diastolic 85–106; PULSE 70–83; RESP 16–20; TEMP 97.2–99.5; O2SAT 98–100
--- NOTE | 2024-12-31 15:16 | DVHPN2 ---
Subjective This is a follow up on 54-year-old male with a known history of hypertension, chronic alcoholism, recent history of bilateral foot blisters status post I and D of the right heel for osteomyelitis on11/25, then again admission was discharged on December 12 presented to the hospital with a right heel wound found to have suspected cellulitis/osteomyelitis of the right foot. Patient is status post right foot I and D and calcaneum bone biopsy of the right foot twice already. Reviewed: Care Plan Changes from previous H/P or p: No Changes Eyes: No Pain, No Vision change, No Conjunctivae inflammation, No Eyelid inflammation; Other (Right eye prosthesis); No Redness ENT: No Ear pain, No Ear discharge, No Nose pain, No Nose discharge, No Nose congestion, No Mouth pain, No Mouth swelling, No Throat pain, No Throat swelling, No Other Cardiovascular: No Chest Pain, No Palpitations, No Orthopnea, No Paroxysmal Noc. Dyspnea, No Edema, No Lt Headedness, No Other Respiratory: No Cough, No Dry, No Shortness of breath, No SOB with excertion, No Wheezing, No Hemoptysis, No Pleuritic Pain, No Sputum, No Other Gastrointestinal: No Nausea, No Vomiting, No Abdominal Pain, No Diarrhea, No Constipation, No Melena, No Hematochezia, No Other Genitourinary: No Dysuria, No Frequency, No Incontinence, No Hematuria, No Retention, No Other Musculoskeletal: other (Right heel pain); No neck pain, No shoulder pain, No arm pain, No back pain, No hand pain; leg pain (Right); No foot pain Skin: No Rash; Lesions (Right foot); No Jaundice, No Bruising; Other (Right foot wound) Objective Vitals Vital Signs Date Time Temp Pulse Resp B/P (MAP) Pulse Ox O2 Delivery O2 Flow Rate FiO2 12/31/24 10:38 133/77 12/31/24 08:30 98.3 73 16 98 98.3 12/31/24 08:00 Room Air* 0 21 Intake/Output Intake and Output 12/31/24 07:00 Intake Total 2450 ml Output Total 3150 ml Balance -700 ml Intake Oral 1450 ml IV Total 1000 ml Output Urine Total 3150 ml # Voids 4 # Bowel Movements 4 Exam HEENT pupils are reactive Neck is supple CV is S1-S2 regular rate and rhythm Respiratory are clear GI positive bowel sound Extremity no 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 Medications Current Medications Medications Dose Ordered Sig/Rei Route Start Time Stop Time Status Last Admin Dose Admin Hydralazine HCl 10 mg Q6HP PRN IV 12/23/24 21:00 12/31/24 01:18 10 MG Losartan Potassium 50 mg DAILY PO 12/24/24 10:00 12/31/24 10:38 50 MG Sodium Chloride 1,000 ml @ 120 mls/hr Q8H20M IV 12/23/24 21:00 12/30/24 20:11 120 MLS/HR Acetaminophen/ Hydrocodone Bitart 1 tab Q4HP PRN PO 12/23/24 21:00 12/28/24 04:33 1 TAB Ondansetron HCl 4 mg Q4HP PRN IV 12/23/24 21:00 Docusate Sodium 100 mg BIDPRN PRN PO 12/23/24 21:00 Acetaminophen 650 mg Q6HP PRN PO 12/23/24 21:00 12/30/24 09:33 650 MG Morphine Sulfate 2 mg Q4HPRN PRN IV 12/23/24 21:00 Nitroglycerin 0.4 mg Q5MINP PRN SL 12/23/24 22:45 Morphine Sulfate 2 mg Q30M PRN IV 12/23/24 22:45 Enoxaparin Sodium 40 mg DAILY SC 12/24/24 10:00 12/31/24 10:37 40 MG Diagnostic Test (Pha) 1 strip ACHS 12/24/24 07:00 12/31/24 11:55 1 STRIP Insulin Human Regular ACHS SC 12/24/24 07:00 12/31/24 11:30 3 UNITS Dextrose 50 ml UD PRN IV 12/24/24 01:15 Rifampin 300 mg BID PO 12/28/24 22:00 12/31/24 10:37 300 MG Ciprofloxacin 500 mg Q12HR PO 12/29/24 22:00 12/31/24 10:38 500 MG Linezolid 600 mg BID PO 12/30/24 22:00 12/31/24 10:38 600 MG Laboratory Results Laboratory Tests 12/24/24 07:05 12/29/24 08:28 Urinalysis Test 12/23/24 21:00 Urine Color Colorless (Yellow) Urine Clarity Clear (Clear) Urine pH 5.0 (5.0-9.0) Urine Specific [place] 1.010 (1.001-1.035) Urine Protein Negative (Negative) Urine Ketones Negative (Negative) Urine Blood Negative /uL (Negative) Urine Nitrite Negative (Negative) Urine Bilirubin Negative (Negative) Urine Urobilinogen Normal mg/dL (Negative) Urine Leukocyte Esterase Negative /uL (Negative) Urine RBC <1 /hpf (0 - 3) Urine Microscopic WBC < 1 /HPF (0-3) Urine Squamous Epithelial Cells None seen /hpf (<5) Urine Bacteria None seen /hpf (None Seen) Urine Glucose Normal mg/dL (Normal) Microbiology Microbiology Date/Time Source Procedure Growth Status 12/26/24 13:20 Foot Right Gram Stain - Final Resulted 12/26/24 13:20 Foot Right Anaerobic Culture - Final Resulted 12/26/24 13:20 Aerobic Culture - Preliminary Enterococcus faecium - VRE Enterococcus faecalis Methicillin Resistant S.aureus Resulted 12/23/24 12:00 Blood Blood Culture - Final NO GROWTH AFTER 5 DAYS OF INCUBATION. Complete Assessment/Plan Assessment/Plan 54-year-old male with a known history of hypertension, dyslipidemia, peripheral neuropathy initially presented to the hospital with a right foot wound found to have 1. Acute right heel osteomyelitis status post I and D and calcaneum bone biopsy 2. Right foot cellulitis status post I and D on12/26, revision ID on12/28 3. Hypertension 4. Diabetes type 2 5. Chronic alcoholism -IV antibiotics, follow up wound Gram stain and culture -infectious disease consultation appreciated, -Podiatry Services consultation appreciated. -discussing detail regarding the IV antibiotics patient had no insurance he can not afford any IV antibiotics he knows that his cough not on IV antibiotics including worsening osteomyelitis infection in the bone losing of the limb this was discussed in detail in the presence of nurse jorge Gooden, PICC line has been discontinued. Patient was to be given p.o. antibiotics. Patient is close follow up as an outpatient with the PCP has been as podiatry services surgery has been as Infectious Disease. Plan discussed with: Patient Date of Service: Dec 30, 2024 Billing Provider: MESERET LLOYD MD Common Visit Codes: [id number] INP/OBS CARE(MOD) MESERET LLOYD MD Dec 31, 2024 15:16
[2025-01-01 01:00] VITALS: BP 136/83; PULSE 80; RESP 20; TEMP 98.9; O2SAT 99
[2025-01-01 05:01] VITALS: BP 146/91; PULSE 73; RESP 20; TEMP 97.3; O2SAT 99
[2025-01-01 08:00] VITALS: PULSE 71
[2025-01-01 08:30] VITALS: BP 120/80; PULSE 72; RESP 16; TEMP 97.9; O2SAT 99
--- NOTE | 2025-01-01 13:05 | DVHDS2 ---
Discharge Summary Date of Admission Dec 23, 2024 at 22:42 Date of Discharge: Jan 01, 2025 Labs/Diagnostic Data: Laboratory Results Test 12/31/24 06:15 12/29/24 15:05 12/29/24 08:28 12/24/24 07:05 POC Glucose 136 mg/dl (70-106) Vancomycin Level Trough 14.4 ug/mL (5-10) White Blood Count 7.9 10^3/uL (4.4-10.8) Red Blood Count 3.16 10^6/uL (4.5-5.90) Hemoglobin 10.5 g/dL (13.5-17.5) Hematocrit 29.8 % (41.0-53.0) Mean Corpuscular Volume 94.2 fL (80.0-100.0) Mean Corpuscular Hemoglobin 33.2 pg (28.0-32.0) Mean Corpuscular Hemoglobin Concent 35.3 g/dL (32.0-36.0) Red Cell Distribution Width 13.9 % (11.8-14.3) Platelet Count 286 10^3/uL (140-450) Mean Platelet Volume 7.0 fL (6.9-10.8) Neutrophils (%) (Auto) 78.5 % (37.0-80.0) Lymphocytes (%) (Auto) 15.3 % (10.0-50.0) Monocytes (%) (Auto) 5.9 % (0.0-12.0) Eosinophils (%) (Auto) 0.1 % (0.0-7.0) Basophils (%) (Auto) 0.2 % (0.0-2.0) Neutrophils # (Auto) 6.2 10 ^3/uL (1.6-8.6) Lymphocytes # (Auto) 1.2 10 ^3/uL (0.4-5.4) Monocytes # (Auto) 0.5 10 ^3/uL (0-1.3) Eosinophils # (Auto) 0 10 ^3/uL (0-0.8) Basophils # (Auto) 0 10 ^3/uL (0-0.2) Nucleated Red Blood Cells 0.0 % Prothrombin Time 10.9 sec (9.3-11.8) Prothrombin Time INR 1.03 (0.9-1.15) Activated Partial Thromboplast Time 25.5 SEC (24.5-34.5) Creatinine 0.67 mg/dL (0.700-1.30) Glomerular Filtration Rate Calc 110 mL/min (>90) Sodium Level 139 mmol/L (136-145) Potassium Level 4.1 mmol/L (3.5-5.1) Chloride Level 106 mmol/L (98-107) Carbon Dioxide Level 26 mmol/L (20-31) Anion Gap 7 (5-15) Blood Urea Nitrogen 6 mg/dL (9-23) BUN/Creatinine Ratio 8.8 (10.0-20.0) Serum Glucose 158 mg/dL (74-106) Calcium Level 8.9 mg/dL (8.7-10.4) Total Bilirubin 0.5 mg/dL (0.2-1.0) Aspartate Amino Transferase (AST) 13 U/L (<34) Alanine Aminotransferase (ALT) 12 U/L (7-40) Alkaline Phosphatase 88 U/L (46-116) Total Protein 6.9 g/dL (5.7-8.2) Albumin 3.6 g/dL (3.2-4.8) Test 12/23/24 21:00 12/23/24 12:00 Urine Color Colorless (Yellow) Urine Clarity Clear (Clear) Urine pH 5.0 (5.0-9.0) Urine Specific [place] 1.010 (1.001-1.035) Urine Protein Negative (Negative) Urine Ketones Negative (Negative) Urine Blood Negative /uL (Negative) Urine Nitrite Negative (Negative) Urine Bilirubin Negative (Negative) Urine Urobilinogen Normal mg/dL (Negative) Urine Leukocyte Esterase Negative /uL (Negative) Urine RBC <1 /hpf (0 - 3) Urine Microscopic WBC < 1 /HPF (0-3) Urine Squamous Epithelial Cells None seen /hpf (<5) Urine Bacteria None seen /hpf (None Seen) Urine Glucose Normal mg/dL (Normal) Erythrocyte Sedimentation Rate 104 mm/hr (0-20) Hemoglobin A1c 6.8 % A1C (<5.7) Lactic Acid Level 1.7 mmol/L (0.4-2.0) C-Reactive Protein High Sensitivity 5.73 mg/dL (<1.0) Other Laboratory Tests 12/29/24 08:28 12/24/24 07:05 Brief Hx & Hospital Course: 54-year-old male with a known history of hypertension, dyslipidemia, peripheral neuropathy initially presented to the hospital with a right foot wound found to have acute right heel osteomyelitis status post I and D and calcaneum bone biopsy on12/26. And revision foot surgery on12/28. Patient does have known history of diabetes mellitus type 2 hypertension. Patient also has a history of chronic alcoholism complete alcohol abstinence was recommended. Patient has received IV antibiotics during the hospital stay. Patient was recommended to have PICC line and IV antibiotics for six weeks but patient says he can not afford it and his insurance is not approving IV antibiotics. environmental services technician was consulted who confirmed the same that patient can not afford IV antibiotics and insurance will not approve it. Infectious Disease was consulted who recommended p.o. antibiotics. Risk of worsening osteomyelitis was explained to the patient as he is not on IV antibiotics. Risk of losing the limb was explained to the patient in detail who understand verbalized understanding and agreed to take p.o. antibiotics only. Also patient was recommended to have wound VAC but he can not afford it and insurance will not approve it. Patient was finally discharged on p.o. antibiotics including Zyvox ciprofloxacin and rifampin as prescribed. Patient was recommended to follow up with the Podiatry and Infectious Disease with a in one week. Please return to ER if there is a worsening wound of the right foot or any fevers chills or any concern. Condition at Discharge: Stable Final Diagnosis/Problems List 54-year-old male with a known history of hypertension, dyslipidemia, peripheral neuropathy initially presented to the hospital with a right foot wound found to have 1. Acute right heel osteomyelitis status post I and D and calcaneum bone biopsy 2. Right foot cellulitis status post I and D on12/26, revision ID on12/28 3. Hypertension 4. Diabetes type 2 5. Chronic alcoholism Discharge Disposition: Home SNF Discharge Will this Physician continue t: No Discharge Instruct/Medications Diet: Cardiac 2g Na,low cholest Diet comment: 1800 ADA diet Activity: See Comment Activity comment: No driving, no playing on heavy machinery, no signing legal documents while on narcotics. Follow Up/Referral: Follow up with the PCP in one week Follow up with the Infectious Disease Dr. Yang Myers in one week Follow up with Dr. Mendoza in one week Medications: As prescribed and reconciled Discharge Statement: "Patient was advised to return to the ER or call 911 if any headaches, dizziness, shortness of breath, chest pain, abdominal pain, bleeding, fevers, or worsening of medical condition. Patient was counseled about treatment plan, medications, possible side effects, patientverbalized understanding. All questions were answered to the best of my ability. This discharge took greater then 30 minutes in planning, reviewing documentation, counseling the patient, and discussing with other team members." ASSESSMENT ASSESSMENT Assessment 54-year-old male with a known history of hypertension, dyslipidemia, peripheral neuropathy initially presented to the hospital with a right foot wound found to have 1. Acute right heel osteomyelitis status post I and D and calcaneum bone biopsy 2. Right foot cellulitis status post I and D on12/26, revision ID on12/28 3. Hypertension 4. Diabetes type 2 5. Chronic alcoholism Date of Service: Jan 01, 2025 Billing Provider: MESERET LLOYD MD Common Visit Codes: [id number] DISCH DAY >30min MESERET LLOYD MD Jan 01, 2025 13:05
== END 2025-01-01 12:10 | disposition home or self-care (01) | DRG 344 ==
LOC: ER 11:20 → OVERFLOW 22:42 → TELE-CENTR 12-24 15:08 → TELE-EAST 12-29 14:20
PROVIDERS: ADMIT Internal Medicine; ATTEND Internal Medicine
PROC: 0QBL0ZX Excision of Right Tarsal, Open Approach, Diagnostic (ICD-10-PCS; 2024-12-26)
PROC: 0Y9M0ZZ Drainage of Right Foot, Open Approach (ICD-10-PCS; principal; 2024-12-26 13:08)
PROC: 0Y9M0ZZ Drainage of Right Foot, Open Approach (ICD-10-PCS; 2024-12-28)
DX: E11.69 Type 2 diabetes mellitus with other specified complication (principal); M86.171 Other acute osteomyelitis, right ankle and foot; L03.115 Cellulitis of right lower limb; E11.42 Type 2 diabetes mellitus with diabetic polyneuropathy; E87.1 Hypo-osmolality and hyponatremia; E11.621 Type 2 diabetes mellitus with foot ulcer; R65.10 Systemic inflammatory response syndrome (SIRS) of non-infectious origin without acute organ dysfunction; L02.611 Cutaneous abscess of right foot; L97.516 Non-pressure chronic ulcer of other part of right foot with bone involvement without evidence of necrosis; E11.65 Type 2 diabetes mellitus with hyperglycemia; E78.5 Hyperlipidemia, unspecified; F17.210 Nicotine dependence, cigarettes, uncomplicated; F10.20 Alcohol dependence, uncomplicated; I10 Essential (primary) hypertension; Z83.3 Family history of diabetes mellitus; I25.2 Old myocardial infarction; Z59.71 Insufficient health insurance coverage; Z79.2 Long term (current) use of antibiotics; Z79.899 Other long term (current) drug therapy; Y90.9 Presence of alcohol in blood, level not specified
CPT/HCPCS: 36415; 71045; 73630; 73701; 73718; 80053; 80202; 81001; 82565; 82962; 83036; 83605; 85025; 85610; 85652; 85730; 86141; 86850; 86900; 86901; 87040; 87070; 87075; 87077; 87186; 87205; 93971; 96361; 96365; 99291; G0378; J1100; J1815; J2250; J2543; J2704; J3490

== ENCOUNTER 2025-02-20 13:38 | Emergency (ER) | payer MEDICAID ==
[~2025-02-20] VITALS: Ht 177.8 cm; Wt 97.0 kg
[~2025-02-20 13:38] MED LIST changes: -AUG875T PO; +CIPR500T4 PO; +LINE1TAB6 PO; +METF-370 PO; +NALO4SPR2; +RIFA300C58 PO
[2025-02-20 13:42] VITALS: BP 145/82; PULSE 97; RESP 18; TEMP 97.6; O2SAT 97
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
[2025-02-20 14:23] LABS: Hematocrit 34.3 % (41.0-53.0); Hemoglobin 12.3 g/dL (13.5-17.5); Mean Corpuscular Hemoglobin 34.6 pg (28.0-32.0); Mean Corpuscular Volume 96.1 fL (80.0-100.0); Nucleated Red Blood Cells % 0.0 %
[2025-02-20 14:30] LABS: Chloride 99 mmol/L (98-107); Potassium 3.6 mmol/L (3.5-5.1)
[2025-02-20 14:31] LABS: Anion Gap 10 (5-15); Calcium 8.9 mg/dL (8.7-10.4); Carbon Dioxide 26 mmol/L (20-31); Sodium 135 mmol/L (136-145)
[2025-02-20 14:36] LABS: BUN/Creatinine Ratio 6.8 (10.0-20.0); Blood Urea Nitrogen < 5 mg/dL (9-23); Glucose 133 mg/dL (74-106)
--- NOTE | 2025-02-20 15:01 | DVH ---
Right lower extremity venous duplex Clinical History: Edema Comparison: CT RT LOWER EXTREMITY W CON on DOS: 12/23/24, US RT LOWER DVT on DOS: 12/23/24, CT LOWER EX TREMITY NON JOINT RIGH on DOS: 11/23/24 Findings: Duplex Doppler evaluation of the deep venous system of the right lower extremity from the common femo ral vein to the popliteal vein including color Doppler and spectral/pulsed waveform analysis was perf ormed. The common femoral vein demonstrates appropriate compressibility and waveform variability. There is compressibility/patency of the great saphenous vein at the proximal thigh. The femoral vein demonstrates appropriate compressibility and waveform variability. The deep femoral vein demonstrates appropriate compressibility and waveform variability. The popliteal vein demonstrates appropriate compressibility and waveform variability. There is normal compressibility at the tibioperoneal trunk. Impression: No right femoropopliteal venous thrombosis. If clinical concern/symptoms persist or worsen, short-interval follow-up study is suggested.
[2025-02-20] MEDS ORDERED: CLIN1CAP70 PO (15:31)
[2025-02-20] MEDS ORDERED: SACC1CAP3 PO (15:31)
[2025-02-20] MEDS ORDERED: CEPH250C PO (15:31)
== END 2025-02-20 15:51 | disposition home or self-care (01) ==
LOC: ER 13:38
DX: L03.115 Cellulitis of right lower limb (principal); F17.210 Nicotine dependence, cigarettes, uncomplicated; Z79.899 Other long term (current) drug therapy
CPT/HCPCS: 36415; 80048; 83880; 85025; 93971